=== PATIENT | female | born 1950 | race African-American/Black ===

== ENCOUNTER 2019-03-05 15:34 | Inpatient (IN) | payer OTHER ==
--- NOTE | 2019-03-05 15:45 | PDOC ---
Rapid Medical Evaluation Chief Complaint: Cold Symptoms Time Seen by Provider: 03/05/19 15:42 Medical Evaluation: Allergies Allergy/AdvReac Type Severity Reaction Status Date / Time No Known Drug Allergies Allergy Verified 03/05/19 15:38 Vital Signs Temp Pulse Resp BP Pulse Ox 98.5 F 88 20 193/72 H 76 L 03/05/19 15:38 03/05/19 15:38 03/05/19 15:38 03/05/19 15:38 03/05/19 15:38 03/05/19 15:43 Pt presents to the ED with c/o: sob, cough, congestion x 4 days, Pt on brief exam: decreased BS to left base, no rhonchi/wheeze, crackles Pt ordered for: labs, ekg, cxr, o2 Pt to proceed to the ED Discharge Disposition - Diagnosis Dyspnea - Referrals - Patient Instructions - Post Discharge Activity
[2019-03-05] MEDS ORDERED: ACETAMINOPHEN 1000 MG/100 ML VIAL (NON FORMULARY) IVPB ONE (16:15)
[2019-03-05] MEDS ORDERED: ALBUTEROL SO4 0.083% IH SOL 2.5 MG/3 ML VIAL.NEB. NEB ONE ×4 (16:16→18:29)
--- NOTE | 2019-03-05 16:50 | PDOC ---
History of Present Illness - General Chief Complaint: Cold Symptoms Stated Complaint: FLU Time Seen by Provider: 03/05/19 15:42 History Source: Patient Exam Limitations: No Limitations - History of Present Illness Initial Comments: Pt is a 69 yo F, with PMH of NIDDM, HTN, hyperthyroidism (s/p thyroidectomy, now on levothyroxine), n-stemi, and R breast lumpectomy, who is presenting with complaints of productive cough x4 days. Pt states starting night, she had a "scratchy throat" followed by a cough productive of yellowish sputum. Pt states the cough has worsened, and is now keeping her up during the night. Pt has had subjective fever, with Tmax of 100.0. She states the cough has been associated with substernal chest pain with coughing and shortness of breath, along with generalized body aches and frontal headache after coughing. Pt denies any history of malignancy, estrogen use, recent surgery or travel. Pt denies any vision changes, syncope, orthopnea/PND, hemoptysis, palpitations, nausea/vomiting, abdominal pain, urinary symptoms, diarrhea/constipation, or leg swelling. Social: Pt denies any current cigarette, alcohol, or drug use. Pt smoked for 10 pack years, quit 40 years ago. Pt denies any recent travel or sick contacts. Surgical: R breast lumpectomy, thyroidectomy. Family: no relevant history. 03/05/19 17:10 Past History - Travel Traveled outside of the country in the last 30 days: No Close contact w/someone who was outside of country & ill: No - Past Medical History Allergies/Adverse Reactions: Allergies Allergy/AdvReac Type Severity Reaction Status Date / Time No Known Drug Allergies Allergy Verified 03/05/19 15:38 Home Medications: Ambulatory Orders Brinzolamide/Brimonidine Tart [Simbrinza 1%-0.2% Eye Drops] 8 ml OP DAILY Dulaglutide [Trulicity] 1.5 mg SQ DAILY 03/05/19 Hydrochlorothiazide [Hctz -] 12.5 mg PO DAILY 03/05/19 Levothyroxine Sodium [Synthroid] 137 mcg PO DAILY 03/05/19 Lisinopril 10 mg PO DAILY 03/05/19 Nifedipine [Procardia Xl] 30 mg PO DAILY 03/05/19 Sitagliptin Phos/Metformin HCl [Janumet 50-1,000 mg Tablet] 1 each PO DAILY Travoprost [Travatan Z] 5 ml OP DAILY 03/05/19 Anemia: No Asthma: No Cancer: No Cardiac Disorders: No CVA: No COPD: No CHF: No Dementia: No Diabetes: Yes GI Disorders: No Disorders: No HTN: Yes Hypercholesterolemia: No Liver Disease: No Seizures: No Thyroid Disease: No - Surgical History Abdominal Surgery: No Appendectomy: No Cardiac Surgery: No Cholecystectomy: No Lung Surgery: No Neurologic Surgery: No Orthopedic Surgery: Yes (LEFT SHOULDER ARTHROSCOPY) - Immunization History Immunization Up to Date: Yes - Suicide/Smoking/Psychosocial Hx Smoking History: Never smoked Have you smoked in the past 12 months: No If you are a former smoker, when did you quit?: 1989 Alcohol Use: No Drug/Substance Use Hx: No Substance Use Type: Alcohol Hx Substance Use Treatment: No Review of Systems - Review of Systems Able to Perform ROS?: Yes Is the patient limited Venezuelan proficient: No Constitutional: Yes: Chills, Fever (subjective, tmax 100.0), Loss of Appetite, Malaise, Weight Stable. No: Diaphoresis, Night Sweats, Weakness HEENTM: No: Blurred Vision, Recent change in vision, Nose Pain, Nose Congestion , Throat Pain, Throat Swelling, Difficulty Swallowing Respiratory: Yes: Cough, Shortness of Breath, SOB with Exertion, Productive cough. No: Orthopnea, SOB at Rest, Wheezing, Hemoptysis Cardiac (ROS): Yes: Chest Pain (only with coughing, substernal). No: Edema, Irregular Heart Rate, Lightheadedness, Palpitations, Syncope, Chest Tightness ABD/GI: Yes: Poor Appetite, Poor Fluid Intake. No: Constipated, Diarrhea, Nausea, Vomiting, Indigestion, Abdominal cramping : No: Burning, Dysuria, Frequency, Pain, Urgency Musculoskeletal: No: Back Pain, Joint Pain, Muscle Pain, Muscle Weakness Integumentary: No: Rash Neurological: No: Headache, Numbness, Weakness, Dizziness Psychiatric: No: Sleep Pattern Change, Change in Appetite Endocrine: No: Increased Urine, Change in Weight Hematologic/Lymphatic: Yes: Blood Clots (prior nstemi). No: Anemia, Easy Bleeding, Easy Bruising All Other Systems: Reviewed and Negative *Physical Exam - Vital Signs Last Vital Signs Temp Pulse Resp BP Pulse Ox 98.5 F 88 20 193/72 H 76 L 03/05/19 15:38 03/05/19 15:38 03/05/19 15:38 03/05/19 15:38 03/05/19 15:38 - Physical Exam Comments: BP 193/72, HR 88, 76% on RA on presentation in E, (100% on 2L NC on exam), pt afebrile. Pt appears ill, but in NAD. Obese body habitus. Pt alert and oriented x3. program rep generally intact, muscular strength and sensation intact. No midline spinal tenderness, step-offs, or crepitus. Head normocephalic, atraumatic. Eyes PERRLA, EOMI. Oropharynx without erythema or exudates, no LAD b/l. No nasal congestion, hearing intact. Clear heart sounds, S1/S2, no JVD, b/l pedal edema, or heart murmur. Diminished breath sounds b/l anterior and posterior, audible end-expiratory wheeze. No intercostal retractions, no acute respiratory distress on exam on 2L NC. No abdominal or CVA tenderness to palpation, no rebound, no guarding. Abdomen soft, protuberant, and with normoactive bowel sounds. Skin without jaundice or rash. 03/05/19 16:44 Vital Signs - Vital Signs #1 Blood Pressure: 157/75 MAP: 102 BP Location: Right Arm Blood Pressure Position: Sitting Pulse Rate: 88 Respiratory Rate: 14 (98% 2 L NC) ED Treatment Course - LABORATORY CBC & Chemistry Diagram: 03/05/19 16:37 03/05/19 16:37 Medical Decision Making - Medical Decision Making Pt was seen at bedside, also will be seen by attending Dr. Rizzo. Pt presenting with complaints of productive cough x4 days. Pt states starting night, she had a "scratchy throat" followed by a cough productive of yellowish sputum. Pt states the cough has worsened, and is now keeping her up during the night. Pt has had subjective fever, with Tmax of 100.0. She states the cough has been associated with substernal chest pain with coughing and shortness of breath, along with generalized body aches and frontal headache after coughing. Pt denies any history of malignancy, estrogen use, recent surgery or travel. Pt denies any vision changes, syncope, orthopnea/PND, hemoptysis, palpitations, nausea/vomiting, abdominal pain, urinary symptoms, diarrhea/constipation, or leg swelling. Considering acute pulmonary infection (pneumonia vs viral URI vs influenza) vs ACS vs HF Ordered work-up including CBC, CMP, cardiac profile, BNP, ECG, chest x-ray, coags. Will obtain troponin x2, as pt has new SOB and chest pain with the cough , considering n-stemi history, should obtain multiple troponin if pt is able to discharge to home. Provided 1 g ofirmev and duoneb nebulizer for improvement of dyspnea. Will continue to reassess pt and monitor for symptomatic improvement. ECG: NSR, intervals WNL. No TWIs or significant ST segment changes. No significant changes from prior ECG. 03/05/19 16:50 CBC WNL for pt (H/H 15/48, pt baseline) Influenza negative INR 1.1 Pt now wheezing after nebulizer treatments. Providing 10 mg IV decadron. Pending CMP results. Second troponin to be drawn at 7:30 pm. 03/05/19 17:52 Initial CMP generally WNL, Trop .02, BNP 469. Pending second troponin and reassessment. Pt signed out to night team (Dr. Bowling). 03/05/19 18:49 *DC/Admit/Observation/Transfer Diagnosis at time of Disposition: Productive cough Dyspnea Qualifiers: Dyspnea type: unspecified Qualified Code(s): R06.00 - Dyspnea, unspecified - Discharge Dispostion Condition at time of disposition: Stable - Referrals Referrals: Angy Cullen MD [Primary Care Provider] - - Patient Instructions - Post Discharge Activity
[2019-03-05] MEDS ORDERED: ACETAMINOPHEN INJECTION 100 ML IVPB ONE (16:51)
[2019-03-05 16:57] LABS: EOS % 1.9 % (0-4.5); HEMOGLOBIN 15.7 GM/dL (10.7-15.3); LYMPH % 23.6 % (8-40); MCH 30.8 pg (25.7-33.7); MCHC 32.7 g/dl (32.0-36.0); MEAN CELL VOLUME 94.2 fl (80-96); MEAN PLT VOLUME 9.6 fl (7.5-11.1); MONO % 14.6 % (3.8-10.2); NEUT % 58.9 % (42.8-82.8); PLATELET COUNT 162 K/MM3 (134-434); RBC 5.09 M/mm3 (3.60-5.2); RDW 14.8 % (11.6-15.6); WHITE BLOOD COUNT 5.1 K/mm3 (4.0-10.0)
[2019-03-05 17:10] LABS: INR 1.1 (0.83-1.09)
[2019-03-05] MEDS ORDERED: DEXAMETHASONE SOD PHOSPHATE 10 MG/1 ML VIAL IVPUSH ONE (17:43)
[2019-03-05] MEDS ORDERED: DEXAMETHASONE SOD PHOSPHATE 10 MG/1 ML VIAL ONE (17:51)
[2019-03-05 18:09] LABS: ALBUMIN 3.6 g/dl (3.4-5.0); ALK PHOS 94 U/L (45-117); ANION GAP 6 MMOL/L (8-16); BILIRUBIN,TOTAL 0.4 mg/dL (0.2-1); BLOOD UREA NITROGEN 19 mg/dL (7-18); CALCIUM 9.2 mg/dL (8.5-10.1); CHLORIDE 101 mmol/L (98-107); CO2 34 mmol/L (21-32); CREATININE 1.1 mg/dL (0.55-1.3); GLUCOSE,RANDOM 131 mg/dL (74-106); MAGNESIUM 1.5 mg/dL (1.8-2.4); N-TERMINAL BNP 469.8 pg/ml (5-125); POTASSIUM 4.4 mmol/L (3.5-5.1); SGOT/AST 24 U/L (15-37); SGPT/ALT 18 U/L (13-61); SODIUM 141 mmol/L (136-145); TOT PROT 7.6 g/dl (6.4-8.2)
[2019-03-05] MEDS ORDERED: MAGNESIUM SULF 50% (8.12 MEQ/2 ML-1 GM VIAL) IVPB ONE (18:27)
[2019-03-05] MEDS ORDERED: MAGNESIUM 1GM/D5W - 1 GM/100 ML IVPB IVPB ONE (18:30)
[2019-03-05] MEDS ORDERED: ALBUTEROL SO4 2.5/IPRATROPIUM 0.5 INH SOL 3 ML VIAL.NEB. NEB ONE ×2 (20:33→20:41)
--- NOTE | 2019-03-05 20:37 | PDOC ---
*Physical Exam - Vital Signs Last Vital Signs Temp Pulse Resp BP Pulse Ox 99.3 F 88 14 157/75 76 L 03/05/19 18:19 03/05/19 18:55 03/05/19 18:55 03/05/19 18:55 03/05/19 15:38 - Physical Exam General Appearance: Yes: Nourished, Appropriately Dressed. No: Apparent Distress HEENT: positive: Normal ENT Inspection, Normal Voice Neck: positive: Trachea midline, Supple Respiratory/Chest: positive: Respiratory Distress, Labored Respiration, Rapid RR , Wheezing (diffusely). negative: Lungs Clear, Normal Breath Sounds, Accessory Muscle Use Cardiovascular: positive: Regular Rhythm, Regular Rate Vascular Pulses: Dorsalis-Pedis (R): 2+, Doralis-Pedis (L): 2+ Gastrointestinal/Abdominal: positive: Normal Bowel Sounds, Soft Musculoskeletal: positive: Normal Inspection. negative: CVA Tenderness Extremity: positive: Normal Capillary Refill, Normal Inspection, Normal Range of Motion Integumentary: positive: Normal Color, Dry, Warm Neurologic: positive: Fully Oriented, Alert, Normal Mood/Affect, Normal Response ED Treatment Course - LABORATORY CBC & Chemistry Diagram: 03/05/19 16:37 03/05/19 16:37 - ADDITIONAL ORDERS Additional order review: Laboratory Results 03/05/19 03/05/19 16:37 16:37 PT with INR 13.00 INR 1.10 H Sodium 141 Potassium 4.4 Chloride 101 Carbon Dioxide 34 H Anion Gap 6 L BUN 19 H Creatinine 1.1 Creat Clearance w eGFR 48.96 Random Glucose 131 H Calcium 9.2 Magnesium 1.5 L Total Bilirubin 0.4 AST 24 ALT 18 Alkaline Phosphatase 94 Creatine Kinase 284 H Creatine Kinase Index 0.5 CK-MB (CK-2) 1.5 Troponin I 0.02 B-Natriuretic Peptide 469.8 H Total Protein 7.6 Albumin 3.6 03/05/19 16:37 RBC 5.09 MCV 94.2 MCHC 32.7 RDW 14.8 MPV 9.6 Neutrophils % 58.9 Lymphocytes % 23.6 Monocytes % 14.6 H D Eosinophils % 1.9 Basophils % 1.0 - Medications Given in the ED: ED Medications Discontinued Medications Generic Name Dose Route Start Last Admin Trade Name Freq PRN Reason Stop Dose Admin Acetaminophen 1,000 mg 03/05/19 16:15 03/05/19 16:59 Ofirmev Injection - IVPB 03/05/19 16:16 1,000 mg ONCE ONE Administration Albuterol Sulfate 3 amp 03/05/19 16:16 03/05/19 17:00 Ventolin 0.083% Nebulizer Soln - NEB 03/05/19 16:17 3 amp ONCE ONE Administration Albuterol Sulfate 2 amp 03/05/19 18:28 03/05/19 18:35 Ventolin 0.083% Nebulizer Soln - NEB 03/05/19 18:29 2 amp ONCE ONE Administration Dexamethasone Sodium Phosphate 10 mg 03/05/19 17:43 03/05/19 18:00 Decadron Injection - IVPUSH 03/05/19 17:44 10 mg ONCE ONE Administration Magnesium Sulfate 1 gm 03/05/19 18:27 03/05/19 18:34 Magnesium Sulfate IVPB 03/05/19 18:28 1 gm ONCE ONE Administration Medical Decision Making - Medical Decision Making Patient signed out to me pending breathing treatments, a 2nd troponin, and a re- assessment. When i evaluated the patient off of oxygen she was satting at 85% on RA and had significant wheezing diffusely in all lung watson on inspiration and expiration. She endorses a significant amount of trouble breathing and requested to be placed back on oxygen. I have ordered 3 duonebs and plan to admit the patient to the hospital for observation and further observation 2nd trop negative will admit to med/surg *DC/Admit/Observation/Transfer Diagnosis at time of Disposition: Productive cough, Hypoxia, Wheezing, Reactive airway disease, Obesity, Obstructive lung disease Dyspnea Qualifiers: Dyspnea type: unspecified Qualified Code(s): R06.00 - Dyspnea, unspecified - Discharge Dispostion Condition at time of disposition: Stable Decision to Admit order: Yes - Referrals Referrals: Angy Cullen MD [Primary Care Provider] - - Patient Instructions - Post Discharge Activity
[2019-03-05] MEDS ORDERED: SENNOSIDES 8.6MG TABLET (FP) PO PRN (21:43)
[2019-03-05] MEDS ORDERED: DOCUSATE SODIUM 100 MG CAPSULE (FP) PO PRN (21:43)
[2019-03-05] MEDS ORDERED: ALBUTEROL SO4 0.083% IH SOL 2.5 MG/3 ML VIAL.NEB. NEB PRN (21:46)
[2019-03-05] MEDS: PATIENT'S OWN MEDICATION (NON-FORMULARY) (Brinzolamide/Brimonidine Tart [Simbrinza 1%-0.2% OP SCH (21:47)
[2019-03-05] MEDS ORDERED: INSULIN (LEVEMIR) 100 UNITS/ML UNITS SQ SCH (22:00)
--- NOTE | 2019-03-05 22:35 | PDOC ---
Documentation entered by Lorena Torrez SCRIBE, acting as scribe for Carolina Rizzo MD. Carolina Rizzo MD: This documentation has been prepared by the Shan benavidez Daisy, SCRIBE, under my direction and personally reviewed by me in its entirety. I confirm that the documentation accurately reflects all work, treatment, procedures, and medical decision making performed by me. Attending Attestation - Resident Resident Name: SreekanthReba - ED Attending Attestation I have performed the following: I have examined & evaluated the patient, The case was reviewed & discussed with the resident, I agree w/resident's findings & plan - HPI HPI: 03/05/19 16:06 The patient is a 69 YOF with a PMH of HTN and DM who presents to the ER with nasal congestion, hoarse voice, and increasing shortness of breath for the past 5 days. Denies any history of asthma. Denies fever, chills, cp, N/V/D/C, urinary symptoms, dizziness, or headache. Allergies: NKDA Social Hx: Denies toxic habits. Surgeries: None reported. - Physicial Exam PE: 03/05/19 16:08 ADULT EXAM GENERAL: Awake, alert, and fully oriented, in no acute distress (+) obese. HEAD: No signs of trauma EYES: PERRLA, EOMI, sclera anicteric, conjunctiva clear ENT: Auricles normal inspection, hearing grossly normal, nares patent, oropharynx clear without exudates. Moist mucosa. (+) persistent cough NECK: Normal ROM, supple, no lymphadenopathy, JVD, or masses LUNGS: (+) BL diminished breath sounds. No wheezes, and no crackles HEART: Regular rate and rhythm, normal S1 and S2, no murmurs, rubs or gallops ABDOMEN: (+) protuberant abdomen. Soft, nontender, normoactive bowel sounds. No guarding, no rebound. No masses EXTREMITIES: (+) pedal edema. Normal range of motion. No clubbing or cyanosis. No cords, erythema, or tenderness NEUROLOGICAL: No focal deficits SKIN: Warm, Dry, normal turgor, no rashes or lesions noted. - Critical Care Time Total Critical Care Time: 40 Critical Care Statement: The care of this patient involved high complexity decision making to prevent further life threatening deterioration of the patient 's condition and/or to evaluate & treat vital organ system(s) failure or risk of failure. - Medical Decision Making 03/05/19 16:22 69-year-old female presents with increasing shortness of breath. Past medical history significant for myocardial infarction in August 2015, bilateral shoulder surgery, COPD, tracheal stenosis. Social history former tobacco user, quit in 198903/05/19 16:28 Plan bronchodilator treatments, steroids, reassessment, chest x-ray, EKG, cardiac enzymes 03/05/19 20:36 Patient initially presented with a pulse ox in the mid 70s but responded to supplemental oxygen. After receiving steroids and multiple bronchodilator treatments. She remained hypoxic and required supplemental oxygen. Patient still has some scattered wheezing and will be admitted to inpatient [facility] Impression reactive airway disease, dyspnea, diabetes, hypertension
[2019-03-05] MEDS ORDERED: INSULIN (NOVOLOG) ASPART 100 UNITS/ML 10ML VIAL ONE (22:41)
[2019-03-05] MEDS ORDERED: INSULIN (LEVEMIR) 100 UNITS/ML UNITS SQ ONE (22:41)
[2019-03-05] MEDS: INSULIN SLIDING SCALE (NOVOLOG) 1 VIAL SQ SCH (22:55)
--- NOTE | 2019-03-05 23:37 | HP ---
Admitting History and Physical - Primary Care Physician PCP: Angy Cullen - Admission Chief Complaint: cough and wheezing History of Present Illness: 69 year old F w/ h/o DMII, HTN, hypothyroidism, CAD, ? COPD and R breast cancer s/p lumpectomy presents to ED for evaluation due to chest tightness and wheezing. Patient endorses sore throat which started 5days ago, progressed to productive cough, low grade temp, nasal congestion, body aches and wheezing. Her symptoms was not relieved with OTC meds and she denies recent travel or sick contacts. Ms. Boyer denies nausea/vomiting/diarrhea/dizziness, chest pain, but endorses decreased appetite and interrupted sleep due to persistent cough. Due to feeling unwell on 03/06, she decided to proceed to ED. Vitals in ED: BP 193/72, T 98.5, RR 20, HR 88, O2 sat 76% EKG: non-ischemic CBC WNL (H/H 15/48) Influenza A/B negative INR 1.1 10 mg IV decadron and nebs x 3 administered. Pt placed on 3L nasal cannula which O2 sat increasing to 96% Pt placed in observation overnight due to mild hypoxia. History Source: Patient Limitations to Obtaining History: No Limitations - Past Medical History Cardiovascular: Yes: HTN Pulmonary: Yes: COPD Reproductive: Yes: Postmenopausal ...: 2 ...Para: 2 Endocrine: Yes: Diabetes Mellitus, Other (Enlarged thyroid ) Additional Past Medical History: Obesity hypothyroidism - Past Surgical History Additional Past Surgical History: right breast lumpectomy complete thyroidectomy 2015 right cataract extraction - Smoking History Smoking history: Never smoked Have you smoked in the past 12 months: No Aproximately how many cigarettes per day: 10 (1/2 PPD x 10yrs) If you are a former smoker, when did you quit?: 1989 - Alcohol/Substance Use Hx Alcohol Use: No History of Substance Use: reports: None - Social History Usual Living Arrangement: Yes: Alone ADL: Independent Occupation: Retired Nurse History of Recent Travel: No Home Medications - Allergies Allergies/Adverse Reactions: Allergies Allergy/AdvReac Type Severity Reaction Status Date / Time No Known Drug Allergies Allergy Verified 03/05/19 15:38 - Home Medications Home Medications: Ambulatory Orders Brinzolamide/Brimonidine Tart [Simbrinza 1%-0.2% Eye Drops] 8 ml OP DAILY Dulaglutide [Trulicity] 1.5 mg SQ WEEKLY 03/05/19 Hydrochlorothiazide [Hctz -] 12.5 mg PO DAILY 03/05/19 Levothyroxine Sodium [Synthroid] 137 mcg PO DAILY 03/05/19 Lisinopril 10 mg PO DAILY 03/05/19 Nifedipine [Procardia Xl] 30 mg PO DAILY 03/05/19 Sitagliptin Phos/Metformin HCl [Janumet 50-1,000 mg Tablet] 1 each PO DAILY Travoprost [Travatan Z] 5 ml OP DAILY 03/05/19 Family Disease History - Family Disease History Family Disease History: Other: Father ( (80) PPM placement), Mother ( (52) HTN, of renal failure), Brother (alive (58) DMII) Review of Systems - Review of Systems Constitutional: reports: Lethargy, Loss of Appetite, Weakness Eyes: reports: No Symptoms HENT: reports: Other (sore throat) Neck: reports: No Symptoms Cardiovascular: reports: Shortness of Breath Respiratory: reports: Cough, Wheezing Genitourinary: reports: No Symptoms Breasts: reports: No Symptoms Reported Musculoskeletal: reports: Muscle Weakness Integumentary: reports: No Symptoms Neurological: reports: No Symptoms Endocrine: reports: No Symptoms Hematology/Lymphatic: reports: No Symptoms Psychiatric: reports: No Symptoms Physical Examination Vital Signs: Vital Signs Temperature 99.3 F 03/05/19 18:19 Pulse Rate 88 03/05/19 18:55 Respiratory Rate 14 03/05/19 18:55 Blood Pressure 157/75 03/05/19 18:55 O2 Sat by Pulse Oximetry (%) 76 L 03/05/19 15:38 Constitutional: Yes: No Distress, Calm, Obese Eyes: Yes: Conjunctiva Clear, PERRL HENT: Yes: Atraumatic, Normocephalic Neck: Yes: Supple, Trachea Midline Cardiovascular: Yes: Regular Rate and Rhythm, S1, S2 Respiratory: Yes: Regular, On Nasal O2, Wheezes (expiratory) Gastrointestinal: Yes: Normal Bowel Sounds, Soft, Abdomen, Obese ...Rectal Exam: Yes: Deferred Musculoskeletal: Yes: WNL Extremities: Yes: WNL Edema: No Peripheral Pulses WNL: Yes Peripheral Pulses: Left Radial: 2+, Right Radial: 2+ Integumentary: Yes: WNL Neurological: Yes: Alert, Oriented ...Motor Strength: WNL Psychiatric: Yes: Alert, Oriented Labs: CBC, BMP 03/05/19 16:37 03/05/19 16:37 Imaging - Results Chest X-ray: Pending (CXR 03/05/2019) Problem List - Problems (1) Hypothyroidism Assessment/Plan: continue synthroid 137mcg daily Code(s): E03.9 - HYPOTHYROIDISM, UNSPECIFIED (2) Reactive airway disease Assessment/Plan: Prednisone 40mg BID, d/c home on taper if stable tomorrow duonebs Q6hrs Albuterol PRN O2 3L NC Code(s): J45.909 - UNSPECIFIED ASTHMA, UNCOMPLICATED (3) COPD (chronic obstructive pulmonary disease) with emphysema Assessment/Plan: Pt should f/u with Pulm output for PFTs Code(s): J43.9 - EMPHYSEMA, UNSPECIFIED (4) Diabetes 1.5, managed as type 2 Assessment/Plan: hold trulicity and Janumet Insulin SS Levemir 10units SC hs Fingerstick ACHS Code(s): E13.9 - OTHER SPECIFIED DIABETES MELLITUS WITHOUT COMPLICATIONS (5) Cataract Assessment/Plan: continue simbrinza and Xalatan Code(s): H26.9 - UNSPECIFIED CATARACT (6) HTN (hypertension) Assessment/Plan: HCTZ 12.5mg daily Procardia 30mg daily Lisinopril 10mg daily cardiac diet Code(s): I10 - ESSENTIAL (PRIMARY) HYPERTENSION (7) Prophylactic measure Assessment/Plan: Heparin SC TID bowel regimen with senna and colace PRN tylenol PPI daily OOB to chair Ambulate Code(s): Z29.9 - ENCOUNTER FOR PROPHYLACTIC MEASURES, UNSPECIFIED Assessment/Plan DISPO: home tomorrow if stable Code Status: Full Visit type - Emergency Visit Emergency Visit: Yes ED Registration Date: 03/05/19 Care time: The patient presented to the Emergency Department on the above date and was hospitalized for further evaluation of their emergent condition. - New Patient This patient is new to me today: Yes Date on this admission: 03/06/19 - Critical Care Critical Care patient: No
[2019-03-05 23:46] LABS: ARTERIAL BLD GAS O2 SATURATION 96.3 % (95-98); ARTERIAL BLOOD GAS BASE EXCESS 0.8 meq/l (-2-2); ARTERIAL BLOOD GAS PCO2 54.4 mmHg (35-45); ARTERIAL BLOOD GAS PO2 89.5 mmHg (80-105); ARTERIAL BLOOD GAS pH 7.32 (7.35-7.45)
[2019-03-05 23:47] LABS: ALLENS TEST POSITIVE
[2019-03-05 23:49] LABS: CARBOXYHEMOGLOBIN 0.9 % (0-2)
[2019-03-06] MEDS ORDERED: HEPARIN NA (PORCINE) 5,000 UNITS/ML 1ML VIAL ONE (04:00)
[2019-03-06] MEDS: HEPARIN NA (PORCINE) 5,000 UNITS/ML 1ML VIAL SQ SCH ×4 (04:06→21:27)
[2019-03-06] MEDS ORDERED: guaiFENesin/D-METHORPHAN HB 10 ML UNIT-DOSE CUPS PO ONE ×2 (04:21→06:44)
[2019-03-06] MEDS ORDERED: predniSONE 20 MG TABLET (UD) ONE (05:58)
[2019-03-06] MEDS ORDERED: LEVOTHYROXINE NA 125 MCG TABLET (FP) PO ONE (06:00)
[2019-03-06] MEDS ORDERED: predniSONE 20 MG TABLET (UD) PO SCH (06:00)
[2019-03-06] MEDS: predniSONE 20 MG TABLET (UD) PO SCH ×2 (06:41→10:00)
[2019-03-06 06:52] LABS: HEMATOCRIT 43.7 % (32.4-45.2); HEMOGLOBIN 14.2 GM/dL (10.7-15.3); MCH 30.3 pg (25.7-33.7); MCHC 32.5 g/dl (32.0-36.0); MEAN CELL VOLUME 93.2 fl (80-96); MEAN PLT VOLUME 9.2 fl (7.5-11.1); PLATELET COUNT 167 K/MM3 (134-434); RBC 4.69 M/mm3 (3.60-5.2); RDW 14.6 % (11.6-15.6); WHITE BLOOD COUNT 4.4 K/mm3 (4.0-10.0)
[2019-03-06 07:21] LABS: ANION GAP 8 MMOL/L (8-16); BLOOD UREA NITROGEN 26 mg/dL (7-18); CHLORIDE 98 mmol/L (98-107); CO2 32 mmol/L (21-32); CREATININE 1.2 mg/dL (0.55-1.3); GLUCOSE,RANDOM 144 mg/dL (74-106); PHOSPHOROUS 3.4 mg/dL (2.5-4.9); POTASSIUM 3.8 mmol/L (3.5-5.1); SODIUM 138 mmol/L (136-145)
[2019-03-06] MEDS: LEVOTHYROXINE 112 MCG, LEVOTHYROXINE 25 MCG PO SCH (09:28)
[2019-03-06] MEDS: ALBUTEROL SO4 2.5/IPRATROPIUM 0.5 INH SOL 3 ML VIAL.NEB. NEB SCH ×4 (10:00→20:00)
[2019-03-06] MEDS ORDERED: ALBUTEROL SO4 2.5/IPRATROPIUM 0.5 INH SOL 3 ML VIAL.NEB. NEB ONE (10:27)
[2019-03-06] MEDS: INSULIN SLIDING SCALE (NOVOLOG) 1 VIAL SQ SCH ×4 (10:35→21:33)
[2019-03-06] MEDS: NIFEdipine E.R. 30 MG TABLET (FP) PO SCH (10:36)
[2019-03-06] MEDS: HYDROCHLOROTHIAZIDE 12.5 MG CAPSULE (FP) PO SCH (10:36)
[2019-03-06] MEDS: PANTOPRAZOLE 40 MG TABLET (FP) PO SCH (10:36)
[2019-03-06] MEDS: LISINOPRIL 10 MG TABLET (FP) PO SCH (10:36)
[2019-03-06] MEDS: ACETAMINOPHEN 325 MG TABLET (FP) PO PRN (10:37)
--- NOTE | 2019-03-06 11:37 | PN ---
Progress Note (short form) - Note Progress Note: events noted pt examined in ER off O2-- O2 sat decreased to 87% feeling slightly better no dizziness coughing+ Vital Signs - 24 hr 03/05/19 03/05/19 03/05/19 15:38 18:19 18:55 Temperature 98.5 F 99.3 F Pulse Rate 88 Pulse Rate [#1] 88 Pulse Rate [ 88 Left] Respiratory 20 24 H Rate Respiratory 14 Rate [#1] Blood Pressure 193/72 H Blood Pressure 157/75 [#1] Blood Pressure 159/68 [Left Arm] O2 Sat by Pulse 76 L Oximetry (%) 03/05/19 03/05/19 03/06/19 21:50 21:55 07:48 Temperature 98.4 F Pulse Rate 96 H Pulse Rate [#1] Pulse Rate [ 96 H 87 Left] Respiratory 20 20 Rate Respiratory Rate [#1] Blood Pressure Blood Pressure [#1] Blood Pressure 136/82 160/78 [Left Arm] O2 Sat by Pulse 100 100 98 Oximetry (%) 03/06/19 11:07 Temperature 98.5 F Pulse Rate Pulse Rate [#1] Pulse Rate [ 86 Left] Respiratory Rate Respiratory Rate [#1] Blood Pressure Blood Pressure [#1] Blood Pressure 157/69 [Left Arm] O2 Sat by Pulse 92 L Oximetry (%) Current Medications Generic Name Dose Route Start Last Admin Trade Name Freq PRN Reason Stop Dose Admin Acetaminophen 650 mg 03/05/19 21:48 03/06/19 10:37 Tylenol - PO 650 mg Q6H PRN Administration FEVER Albuterol Sulfate 1 amp 03/05/19 21:46 Ventolin 0.083% Nebulizer Soln - NEB Q6H PRN SHORT OF BREATH/WHEEZING Albuterol/Ipratropium 1 amp 03/06/19 08:00 03/06/19 10:00 Duoneb - NEB 1 amp RQID MOR Administration Docusate Sodium 100 mg 03/05/19 21:43 Colace - PO Q8H PRN CONSTIPATION Heparin Sodium (Porcine) 5,000 unit 03/06/19 02:00 03/06/19 06:42 Heparin - SQ Not Given TID MOR Hydrochlorothiazide 12.5 mg 03/06/19 10:00 03/06/19 10:36 Hctz - PO 12.5 mg DAILY MOR Administration Insulin Aspart 1 vial 03/06/19 11:37 Novolog Vial Sliding Scale - SQ ACHS [facility] Protocol Latanoprost 1 drop 03/06/19 22:00 Xalatan 0.005% Eye Drops - OU HS MOR Levothyroxine Sodium 112 mcg/ 137 mcg 03/06/19 07:00 03/06/19 09:28 Levothyroxine Sodium 25 mcg PO 137 mcg DAILY@0700 MOR Administration Lisinopril 10 mg 03/06/19 10:00 03/06/19 10:36 Prinivil PO 10 mg DAILY MOR Administration Methylprednisolone Sodium Succinate 40 mg 03/06/19 11:45 Solu-Medrol - IVPUSH Q8H-IV MOR Nifedipine 30 mg 03/06/19 10:00 03/06/19 10:36 Procardia Xl - PO 30 mg DAILY MOR Administration Non-Formulary Medication 8 ml 03/05/19 21:45 03/05/19 21:47 Brinzolamide/Brimonidine Tart [Simbrinza 1%-0.2% Eye Drops] OP Not Given DAILY [facility] Non-Formulary Medication 1 each 03/06/19 11:45 Sitagliptin Phos/Metformin Hcl [Janumet 50-1,000 Mg Tablet] PO DAILY MOR Pantoprazole Sodium 40 mg 03/06/19 10:00 03/06/19 10:36 Protonix - PO 40 mg DAILY MOR Administration Senna 2 tab 03/05/19 21:43 Senna - PO HS PRN CONSTIPATION Laboratory Results - last 24 hr 03/05/19 03/05/19 03/05/19 16:37 16:37 16:37 WBC 5.1 RBC 5.09 Hgb 15.7 H Hct 48.0 H MCV 94.2 MCH 30.8 MCHC 32.7 RDW 14.8 Plt Count 162 MPV 9.6 Absolute Neuts (auto) 3.0 Neutrophils % 58.9 Lymphocytes % 23.6 Monocytes % 14.6 H D Eosinophils % 1.9 Basophils % 1.0 Nucleated RBC % 0 PT with INR 13.00 INR 1.10 H Anticoagulation Therapy Puncture Site ABG pH ABG pCO2 at Pt Temp ABG pO2 at Pt Temp ABG HCO3 ABG O2 Sat (Measured) ABG O2 Content ABG Base Excess Benjamin Test Carboxyhemoglobin Methemoglobin O2 Delivery Device Oxygen Flow Rate Vent Mode Vent Rate Mechanical Rate Pressure Support Vent Sodium Potassium Chloride Carbon Dioxide Anion Gap BUN Creatinine Creat Clearance w eGFR POC Glucometer Random Glucose Calcium Phosphorus Magnesium Total Bilirubin AST ALT Alkaline Phosphatase Creatine Kinase Creatine Kinase Index CK-MB (CK-2) Troponin I B-Natriuretic Peptide Total Protein Albumin TSH Influenza A (Rapid) Negative Influenza B (Rapid) Negative 03/05/19 03/05/19 03/05/19 16:37 19:56 20:30 WBC RBC Hgb Hct MCV MCH MCHC RDW Plt Count MPV Absolute Neuts (auto) Neutrophils % Lymphocytes % Monocytes % Eosinophils % Basophils % Nucleated RBC % PT with INR INR Anticoagulation Therapy Puncture Site ABG pH ABG pCO2 at Pt Temp ABG pO2 at Pt Temp ABG HCO3 ABG O2 Sat (Measured) ABG O2 Content ABG Base Excess Benjamin Test Carboxyhemoglobin Methemoglobin O2 Delivery Device Oxygen Flow Rate Vent Mode Vent Rate Mechanical Rate Pressure Support Vent Sodium 141 Potassium 4.4 Chloride 101 Carbon Dioxide 34 H Anion Gap 6 L BUN 19 H Creatinine 1.1 Creat Clearance w eGFR 48.96 POC Glucometer Random Glucose 131 H Calcium 9.2 Phosphorus Magnesium 1.5 L Total Bilirubin 0.4 AST 24 ALT 18 Alkaline Phosphatase 94 Creatine Kinase 284 H Creatine Kinase Index 0.5 CK-MB (CK-2) 1.5 Troponin I 0.02 < 0.02 < 0.02 B-Natriuretic Peptide 469.8 H Total Protein 7.6 Albumin 3.6 TSH Influenza A (Rapid) Influenza B (Rapid) 03/05/19 03/05/19 03/05/19 21:52 23:30 23:30 WBC RBC Hgb Hct MCV MCH MCHC RDW Plt Count MPV Absolute Neuts (auto) Neutrophils % Lymphocytes % Monocytes % Eosinophils % Basophils % Nucleated RBC % PT with INR INR Anticoagulation Therapy No Result Required. Puncture Site Right radial ABG pH 7.32 L ABG pCO2 at Pt Temp 54.4 H ABG pO2 at Pt Temp 89.5 ABG HCO3 27.5 H ABG O2 Sat (Measured) 96.3 ABG O2 Content 19.7 ABG Base Excess 0.8 Benjamin Test Positive Carboxyhemoglobin 0.9 Methemoglobin 0.5 O2 Delivery Device No Result Required. Oxygen Flow Rate Yes Vent Mode No Result Required. Vent Rate No Result Required. Mechanical Rate No Result Required. Pressure Support Vent No Result Required. Sodium Potassium Chloride Carbon Dioxide Anion Gap BUN Creatinine Creat Clearance w eGFR POC Glucometer 271 Random Glucose Calcium Phosphorus Magnesium Total Bilirubin AST ALT Alkaline Phosphatase Creatine Kinase Creatine Kinase Index CK-MB (CK-2) Troponin I B-Natriuretic Peptide Total Protein Albumin TSH Influenza A (Rapid) Influenza B (Rapid) 03/06/19 03/06/19 03/06/19 05:20 05:20 05:30 WBC 4.4 RBC 4.69 Hgb 14.2 Hct 43.7 MCV 93.2 MCH 30.3 MCHC 32.5 RDW 14.6 Plt Count 167 MPV 9.2 Absolute Neuts (auto) Neutrophils % Lymphocytes % Monocytes % Eosinophils % Basophils % Nucleated RBC % PT with INR INR Anticoagulation Therapy Puncture Site ABG pH ABG pCO2 at Pt Temp ABG pO2 at Pt Temp ABG HCO3 ABG O2 Sat (Measured) ABG O2 Content ABG Base Excess Benjamin Test Carboxyhemoglobin Methemoglobin O2 Delivery Device Oxygen Flow Rate Vent Mode Vent Rate Mechanical Rate Pressure Support Vent Sodium 138 Potassium 3.8 Chloride 98 Carbon Dioxide 32 Anion Gap 8 BUN 26 H Creatinine 1.2 Creat Clearance w eGFR 44.29 POC Glucometer Random Glucose 144 H Calcium 9.0 Phosphorus 3.4 Magnesium 2.0 Total Bilirubin AST ALT Alkaline Phosphatase Creatine Kinase 280 H Creatine Kinase Index 0.7 CK-MB (CK-2) 2.1 Troponin I < 0.02 B-Natriuretic Peptide Total Protein Albumin TSH 2.79 Influenza A (Rapid) Influenza B (Rapid) 03/06/19 07:59 WBC RBC Hgb Hct MCV MCH MCHC RDW Plt Count MPV Absolute Neuts (auto) Neutrophils % Lymphocytes % Monocytes % Eosinophils % Basophils % Nucleated RBC % PT with INR INR Anticoagulation Therapy Puncture Site ABG pH ABG pCO2 at Pt Temp ABG pO2 at Pt Temp ABG HCO3 ABG O2 Sat (Measured) ABG O2 Content ABG Base Excess Benjamin Test Carboxyhemoglobin Methemoglobin O2 Delivery Device Oxygen Flow Rate Vent Mode Vent Rate Mechanical Rate Pressure Support Vent Sodium Potassium Chloride Carbon Dioxide Anion Gap BUN Creatinine Creat Clearance w eGFR POC Glucometer 156 Random Glucose Calcium Phosphorus Magnesium Total Bilirubin AST ALT Alkaline Phosphatase Creatine Kinase Creatine Kinase Index CK-MB (CK-2) Troponin I B-Natriuretic Peptide Total Protein Albumin TSH Influenza A (Rapid) Influenza B (Rapid) s1 s2 RRR Lungs B/L ronchi+ Abd- soft, obese, NT no edema PLAN COPD exacerbation ex smoker morbid obesity --dc prednisone and change to IV solumedrol Nebs O2 Pulmonary eval CT chest monitor blood sugars continue with meds Problem List - Problems (1) Hypoxia Code(s): R09.02 - HYPOXEMIA (2) Obstructive lung disease Code(s): J44.9 - CHRONIC OBSTRUCTIVE PULMONARY DISEASE, UNSPECIFIED (3) COPD (chronic obstructive pulmonary disease) with emphysema Code(s): J43.9 - EMPHYSEMA, UNSPECIFIED (4) Diabetes 1.5, managed as type 2 Code(s): E13.9 - OTHER SPECIFIED DIABETES MELLITUS WITHOUT COMPLICATIONS
[2019-03-06] MEDS ORDERED: PATIENT'S OWN MEDICATION (NON-FORMULARY) (Sitagliptin Phos/Metformin Hcl [Janumet 50-1,000 PO SCH (11:45)
[2019-03-06] MEDS ORDERED: methylPREDNISolone NA SUCC 40 MG/1 ML VIAL ONE (13:57)
[2019-03-06] MEDS ORDERED: ACETAMINOPHEN 325 MG TABLET (FP) ONE (13:57)
[2019-03-06] MEDS: methylPREDNISolone NA SUCC 40 MG/1 ML VIAL IVPUSH SCH ×2 (14:03→17:41)
[2019-03-06] MEDS: metFORMIN HCL 500 MG TABLET (FP) PO SCH (14:04)
[2019-03-06] MEDS: sitaGLIPtin PHOSPHATE 50 MG TABLET PO SCH (14:04)
--- NOTE | 2019-03-06 14:28 | EKG ---
Test Reason : Blood Pressure : / mmHG Vent. Rate : 085 BPM Atrial Rate : 085 BPM P-R Int : 184 ms QRS Dur : 068 ms QT Int : 356 ms P-R-T Axes : 049 050 050 degrees QTc Int : 423 ms POOR DATA QUALITY, INTERPRETATION MAY BE ADVERSELY AFFECTED NORMAL SINUS RHYTHM CANNOT RULE OUT INFERIOR INFARCT , AGE UNDETERMINED CANNOT RULE OUT ANTERIOR INFARCT , AGE UNDETERMINED ABNORMAL ECG Confirmed by MD VELIA, BRANDON ([id number]) on 03/06/2019 2:27:58 PM Referred By: Confirmed By:BRANDON GUNN MD
[2019-03-06 15:24] VITALS: BMI 41.8
--- NOTE | 2019-03-06 16:12 | PN ---
Progress Note (short form) - Note Progress Note: PULMONARY CONSULTATION DICTATED 03/06/19 IMP ACUTE HYPOXEMIC/HYPERCAPNEIC RESPIRATORY FAILURE ASTHMATIC BRONCHITIS URI ? COPD HTN DM PLAN IV STEROIDS INHALED BRONCHODILATORS O2 CHEST CT ABX OUTPATIENT PFTS CHECK AMBULATORY O2 SAT PRIOR TO DISCHARGE TO DETERMINE IF PT IS A CANDIDATE FOR HOME O2 DR BOWERS Problem List - Problems (1) Dyspnea Code(s): R06.00 - DYSPNEA, UNSPECIFIED Qualifiers: Dyspnea type: unspecified Qualified Code(s): R06.00 - Dyspnea, unspecified (2) Hypoxia Code(s): R09.02 - HYPOXEMIA (3) Obesity Code(s): E66.9 - OBESITY, UNSPECIFIED (4) Productive cough Code(s): R05 - COUGH (5) Wheezing Code(s): R06.2 - WHEEZING (6) Asthmatic bronchitis Code(s): J45.909 - UNSPECIFIED ASTHMA, UNCOMPLICATED (7) Acute respiratory failure with hypoxia and hypercapnia Code(s): J96.01 - ACUTE RESPIRATORY FAILURE WITH HYPOXIA; J96.02 - ACUTE RESPIRATORY FAILURE WITH HYPERCAPNIA (8) Diabetes Code(s): E11.9 - TYPE 2 DIABETES MELLITUS WITHOUT COMPLICATIONS (9) HTN (hypertension) Code(s): I10 - ESSENTIAL (PRIMARY) HYPERTENSION (10) Hypothyroidism Code(s): E03.9 - HYPOTHYROIDISM, UNSPECIFIED
--- NOTE | 2019-03-06 17:49 | CONS ---
DATE OF CONSULTATION: 03/06/2019 REFERRING PHYSICIAN: Angy Cullen MD HISTORY: The patient is a 69-year-old black female with a past medical history of hypertension, diabetes, remote history of tobacco use quit 40 years ago admitted to [facility] with complaint of increasing shortness of breath, chest congestion, and wheezing. The patient states she was doing well until about a week ago when she started developing nasal congestion and a hoarse voice. Over the past 5 days starting developing increasing dyspnea on exertion, cough, and wheezing. She denied any fevers, chills, nausea, vomiting, or diaphoresis. She states that the cough was productive of yellowish sputum. Denied any hemoptysis. There was no history of respiratory failure in the past or ventilatory support. She denies any history of COPD or asthma. In the ER, she is noted to be hypoxemic with O2 saturations in the 70s but responded well to supplemental O2 as well as inhaled bronchodilator treatment. She remained hypoxic and subsequently transferred up to medical floor for further management. PAST MEDICAL HISTORY: Again includes diabetes and hypertension. SOCIAL HISTORY: Retired RN. History of tobacco use. Quit 40 years ago. CURRENT MEDICATIONS: Include Simbrinza eye drops, methylprednisolone, Tylenol, Prinivil, heparin, albuterol, DuoNeb, Glucophage, Colace, Senna, Procardia, Januvia, NovoLog, Protonix, hydrochlorothiazide, Synthroid. REVIEW OF SYSTEMS: Positive shortness of breath, positive cough, positive wheezing. No fever, no chills, no chest pain, no palpitations, no abdominal pain or lower extremity edema. PHYSICAL EXAMINATION: General: The patient is an obese female well-developed, awake, alert in no acute distress. Vital Signs: She is afebrile. Blood pressure 161/88, respiratory rate 20, O2 saturation 94% on 2 L. HEENT: Normocephalic and atraumatic. Neck: Supple. Heart: Regular with S1, S2. Chest: She has bilateral wheezes. Abdomen: Soft. Bowel sounds are positive. Extremities: No cyanosis or edema. LABORATORIES: Blood gas pH 7.32, PCO2 of 54, PO2 of 89, bicarbonate 27, saturation 96. On unknown quantity of oxygen. WBC 4.4, hemoglobin 14.2, hematocrit 43.7 with a platelet count of 167,000. INR 1.10. Chemistry: BUN 26, creatinine 1.2. Chest x-ray: No acute infiltrates and/or effusions. IMPRESSION: 1. Acute hypoxemic, hypercapnic respiratory failure secondary to: 2. Likely acute asthmatic bronchitis most likely secondary to upper respiratory infection. 3. likely underlying chronic obstructive airway disease. 4. Hypertension. 5. Diabetes. 6. Obesity. PLAN: IV steroids. Inhaled bronchodilators. Supplemental O2. Chest CT. Antibiotics. Outpatient PFTs. EVER BOWERS M.D. [id number] MTDD
[2019-03-06] MEDS: LATANOPROST 0.005% OPHTH SOLN 2.5ML BOTTLE OU SCH (22:11)
[2019-03-07] MEDS: methylPREDNISolone NA SUCC 40 MG/1 ML VIAL IVPUSH SCH ×3 (02:25→17:10)
[2019-03-07] MEDS: HEPARIN NA (PORCINE) 5,000 UNITS/ML 1ML VIAL SQ SCH ×3 (05:23→21:58)
[2019-03-07] MEDS ORDERED: LEVOTHYROXINE NA 25 MCG TABLET (FP) ONE (05:54)
[2019-03-07] MEDS ORDERED: LEVOTHYROXINE NA 112 MCG TABLET (FP) ONE (05:54)
[2019-03-07] MEDS: INSULIN SLIDING SCALE (NOVOLOG) 1 VIAL SQ SCH ×4 (06:15→21:56)
[2019-03-07] MEDS: metFORMIN HCL 500 MG TABLET (FP) PO SCH (06:16)
[2019-03-07] MEDS: sitaGLIPtin PHOSPHATE 50 MG TABLET PO SCH (06:16)
[2019-03-07] MEDS: LEVOTHYROXINE 112 MCG, LEVOTHYROXINE 25 MCG PO SCH (06:16)
[2019-03-07] MEDS: ALBUTEROL SO4 2.5/IPRATROPIUM 0.5 INH SOL 3 ML VIAL.NEB. NEB SCH ×4 (08:21→21:41)
[2019-03-07] MEDS ORDERED: INSULIN (NOVOLOG) ASPART 100 UNITS/ML 10ML VIAL ONE ×2 (09:05→21:53)
[2019-03-07] MEDS: HYDROCHLOROTHIAZIDE 12.5 MG CAPSULE (FP) PO SCH (09:33)
[2019-03-07] MEDS: LISINOPRIL 10 MG TABLET (FP) PO SCH (09:33)
[2019-03-07] MEDS: PANTOPRAZOLE 40 MG TABLET (FP) PO SCH (09:33)
[2019-03-07] MEDS: NIFEdipine E.R. 30 MG TABLET (FP) PO SCH (09:34)
--- NOTE | 2019-03-07 11:23 | PN ---
Progress Note (short form) - Note Progress Note: events noted pt examined wheezing more today no dizziness coughing+ Vital Signs - 24 hr 03/06/19 03/06/19 03/06/19 11:30 11:45 14:21 Temperature Pulse Rate Pulse Rate [ 88 88 Left] Respiratory 20 18 Rate Blood Pressure Blood Pressure 157/69 160/77 [Left Arm] O2 Sat by Pulse 88 L 97 96 Oximetry (%) 03/06/19 03/06/19 03/06/19 15:19 15:29 17:38 Temperature 98.8 F 97.6 F Pulse Rate 84 87 Pulse Rate [ Left] Respiratory 20 20 18 Rate Blood Pressure 161/88 158/89 Blood Pressure [Left Arm] O2 Sat by Pulse 94 L Oximetry (%) 03/06/19 03/07/19 21:00 05:00 Temperature 98.3 F Pulse Rate 76 Pulse Rate [ Left] Respiratory 18 Rate Blood Pressure 127/59 L Blood Pressure [Left Arm] O2 Sat by Pulse 94 L Oximetry (%) Current Medications Generic Name Dose Route Start Last Admin Trade Name Freq PRN Reason Stop Dose Admin Acetaminophen 650 mg 03/05/19 21:48 03/06/19 10:37 Tylenol - PO 650 mg Q6H PRN Administration FEVER Albuterol Sulfate 1 amp 03/05/19 21:46 Ventolin 0.083% Nebulizer Soln - NEB Q6H PRN SHORT OF BREATH/WHEEZING Albuterol/Ipratropium 1 amp 03/06/19 08:00 03/07/19 08:21 Duoneb - NEB 1 amp RQID MOR Administration Docusate Sodium 100 mg 03/05/19 21:43 Colace - PO Q8H PRN CONSTIPATION Heparin Sodium (Porcine) 5,000 unit 03/06/19 02:00 03/07/19 05:23 Heparin - SQ Not Given TID MOR Hydrochlorothiazide 12.5 mg 03/06/19 10:00 03/07/19 09:33 Hctz - PO 12.5 mg DAILY MOR Administration Insulin Aspart 1 vial 03/06/19 11:37 03/07/19 06:15 Novolog Vial Sliding Scale - SQ 2 units ACHS MOR Administration Protocol Latanoprost 1 drop 03/06/19 22:00 03/06/19 22:11 Xalatan 0.005% Eye Drops - OU 1 drop HS MOR Administration Levothyroxine Sodium 112 mcg/ 137 mcg 03/06/19 07:00 03/07/19 06:16 Levothyroxine Sodium 25 mcg PO 137 mcg DAILY@0700 MOR Administration Lisinopril 10 mg 03/06/19 10:00 03/07/19 09:33 Prinivil PO 10 mg DAILY MOR Administration Metformin HCl 1,000 mg 03/06/19 13:00 03/07/19 06:16 Glucophage - PO 1,000 mg ACBK MOR Administration Methylprednisolone Sodium Succinate 40 mg 03/06/19 11:45 03/07/19 09:32 Solu-Medrol - IVPUSH 40 mg Q8H-IV MOR Administration Nifedipine 30 mg 03/06/19 10:00 03/07/19 09:34 Procardia Xl - PO 30 mg DAILY MOR Administration Non-Formulary Medication 8 ml 03/05/19 21:45 03/05/19 21:47 Brinzolamide/Brimonidine Tart [Simbrinza 1%-0.2% Eye Drops] OP Not Given DAILY [facility] Pantoprazole Sodium 40 mg 03/06/19 10:00 03/07/19 09:33 Protonix - PO 40 mg DAILY MOR Administration Senna 2 tab 03/05/19 21:43 Senna - PO HS PRN CONSTIPATION Sitagliptin Phosphate 50 mg 03/06/19 13:00 03/07/19 06:16 Januvia - PO 50 mg DAILY@0700 MOR Administration Laboratory Results - last 24 hr 03/06/19 03/06/19 03/07/19 16:06 21:28 06:14 POC Glucometer 214 187 192 s1 s2 RRR Lungs B/L ronchi+ Abd- soft, obese, NT no edema PLAN COPD exacerbation ex smoker morbid obesity --on IV solumedrol Nebs q6h O2 Pulmonary eval noted CT chest-- results noted-- needs to repeat in 3 months monitor blood sugars continue with meds Problem List - Problems (1) Hypoxia Code(s): R09.02 - HYPOXEMIA (2) Obstructive lung disease Code(s): J44.9 - CHRONIC OBSTRUCTIVE PULMONARY DISEASE, UNSPECIFIED (3) COPD (chronic obstructive pulmonary disease) with emphysema Code(s): J43.9 - EMPHYSEMA, UNSPECIFIED (4) Diabetes 1.5, managed as type 2 Code(s): E13.9 - OTHER SPECIFIED DIABETES MELLITUS WITHOUT COMPLICATIONS
[2019-03-07] MEDS: POLYETHYLENE GLYCOL 3350 119 GM BTL PO SCH (12:07)
--- NOTE | 2019-03-07 12:28 | PN ---
Progress Note, Physician History of Present Illness: pulmonary alert,feeling better,less congested,+ cough - Current Medication List Current Medications: Active Medications Acetaminophen (Tylenol -) 650 mg PO Q6H PRN PRN Reason: FEVER Last Admin: 03/06/19 10:37 Dose: 650 mg Albuterol Sulfate (Ventolin 0.083% Nebulizer Soln -) 1 amp NEB Q6H PRN PRN Reason: SHORT OF BREATH/WHEEZING Albuterol/Ipratropium (Duoneb -) 1 amp NEB RQID [facility] Last Admin: 03/07/19 08:21 Dose: 1 amp Docusate Sodium (Colace -) 100 mg PO Q8H PRN PRN Reason: CONSTIPATION Heparin Sodium (Porcine) (Heparin -) 5,000 unit SQ TID [facility] Last Admin: 03/07/19 05:23 Dose: Not Given Hydrochlorothiazide (Hctz -) 12.5 mg PO DAILY [facility] Last Admin: 03/07/19 09:33 Dose: 12.5 mg Insulin Aspart (Novolog Vial Sliding Scale -) 1 vial SQ ACHS [facility]; Protocol Last Admin: 03/07/19 11:35 Dose: 2 units Latanoprost (Xalatan 0.005% Eye Drops -) 1 drop OU HS [facility] Last Admin: 03/06/19 22:11 Dose: 1 drop Levothyroxine Sodium 112 mcg/ (Levothyroxine Sodium 25 mcg) 137 mcg PO DAILY@ 0700 [facility] Last Admin: 03/07/19 06:16 Dose: 137 mcg Lisinopril (Prinivil) 10 mg PO DAILY [facility] Last Admin: 03/07/19 09:33 Dose: 10 mg Metformin HCl (Glucophage -) 1,000 mg PO ACBK [facility] Last Admin: 03/07/19 06:16 Dose: 1,000 mg Methylprednisolone Sodium Succinate (Solu-Medrol -) 40 mg IVPUSH Q8H-IV [facility] Last Admin: 03/07/19 09:32 Dose: 40 mg Nifedipine (Procardia Xl -) 30 mg PO DAILY [facility] Last Admin: 03/07/19 09:34 Dose: 30 mg Non-Formulary Medication (Brinzolamide/Brimonidine Tart [Simbrinza 1%-0.2% Eye Drops]) 8 ml OP DAILY [facility] Last Admin: 03/05/19 21:47 Dose: Not Given Pantoprazole Sodium (Protonix -) 40 mg PO DAILY [facility] Last Admin: 03/07/19 09:33 Dose: 40 mg Polyethylene Glycol (Miralax (For Daily Use) -) 17 gm PO DAILY [facility] Last Admin: 03/07/19 12:07 Dose: 17 grams Senna (Senna -) 2 tab PO HS PRN PRN Reason: CONSTIPATION Sitagliptin Phosphate (Januvia -) 50 mg PO DAILY@0700 [facility] Last Admin: 03/07/19 06:16 Dose: 50 mg - Objective Vital Signs: Vital Signs Temperature 98.3 F 03/07/19 05:00 Pulse Rate 76 03/07/19 05:00 Respiratory Rate 18 03/07/19 05:00 Blood Pressure 127/59 L 03/07/19 05:00 O2 Sat by Pulse Oximetry (%) 94 L 03/06/19 21:00 Constitutional: Yes: Well Nourished, Calm Eyes: Yes: WNL HENT: Yes: WNL Neck: Yes: WNL Cardiovascular: Yes: Regular Rate and Rhythm, S1, S2 Respiratory: Yes: Wheezes (scattered shaunna wheezes) Gastrointestinal: Yes: Normal Bowel Sounds, Soft Extremities: Yes: WNL Edema: No Labs: CBC, BMP 03/06/19 05:30 03/06/19 05:20 INR, PTT INR 1.10 (0.83-1.09) H 03/05/19 16:37 - ....Imaging Cat Scan: Report Reviewed, Image Reviewed Problem List - Problems (1) Dyspnea Code(s): R06.00 - DYSPNEA, UNSPECIFIED Qualifiers: Dyspnea type: unspecified Qualified Code(s): R06.00 - Dyspnea, unspecified (2) Hypoxia Code(s): R09.02 - HYPOXEMIA (3) Obesity Code(s): E66.9 - OBESITY, UNSPECIFIED (4) Productive cough Code(s): R05 - COUGH (5) Wheezing Code(s): R06.2 - WHEEZING (6) Asthmatic bronchitis Code(s): J45.909 - UNSPECIFIED ASTHMA, UNCOMPLICATED (7) Acute respiratory failure with hypoxia and hypercapnia Code(s): J96.01 - ACUTE RESPIRATORY FAILURE WITH HYPOXIA; J96.02 - ACUTE RESPIRATORY FAILURE WITH HYPERCAPNIA (8) Diabetes Code(s): E11.9 - TYPE 2 DIABETES MELLITUS WITHOUT COMPLICATIONS (9) HTN (hypertension) Code(s): I10 - ESSENTIAL (PRIMARY) HYPERTENSION (10) Hypothyroidism Code(s): E03.9 - HYPOTHYROIDISM, UNSPECIFIED Assessment/Plan IMP ACUTE HYPOXEMIC/HYPERCPNEIC RESPIRATORY FAILURE ASTHMATIC BRONCHITIS URI ? COPD HTN DM GROUND GLASS OPACITY PLAN IV STEROIDS SAME DOSE INHALED BRONCHODILATORS O2 ABX OUTPATIENT PFTS CHECK AMBULATORY O2 SAT PRIOR TO DISCHARGE TO DETERMINE IF PT IS A CANDIDATE FOR HOME O2 F/U CHEST CT 3-[address] BOWERS Problem List - Problems (1) Dyspnea Code(s): R06.00 - DYSPNEA, UNSPECIFIED Qualifiers: Dyspnea type: unspecified Qualified Code(s): R06.00 - Dyspnea, unspecified (2) Hypoxia Code(s): R09.02 - HYPOXEMIA (3) Obesity Code(s): E66.9 - OBESITY, UNSPECIFIED (4) Productive cough Code(s): R05 - COUGH (5) Wheezing Code(s): R06.2 - WHEEZING (6) Asthmatic bronchitis Code(s): J45.909 - UNSPECIFIED ASTHMA, UNCOMPLICATED (7) Acute respiratory failure with hypoxia and hypercapnia Code(s): J96.01 - ACUTE RESPIRATORY FAILURE WITH HYPOXIA; J96.02 - ACUTE RESPIRATORY FAILURE WITH HYPERCAPNIA (8) Diabetes Code(s): E11.9 - TYPE 2 DIABETES MELLITUS WITHOUT COMPLICATIONS (9) HTN (hypertension) Code(s): I10 - ESSENTIAL (PRIMARY) HYPERTENSION (10) Hypothyroidism Code(s): E03.9 - HYPOTHYROIDISM, UNSPECIFIED
[2019-03-07] MEDS ORDERED: PT OWN MED DRAWER 7, Y5N ONE (21:31)
[2019-03-07] MEDS: LATANOPROST 0.005% OPHTH SOLN 2.5ML BOTTLE OU SCH (21:55)
[2019-03-08] MEDS: methylPREDNISolone NA SUCC 40 MG/1 ML VIAL IVPUSH SCH ×3 (01:55→17:50)
[2019-03-08] MEDS ORDERED: LEVOTHYROXINE NA 25 MCG TABLET (FP) ONE (05:00)
[2019-03-08] MEDS ORDERED: LEVOTHYROXINE NA 112 MCG TABLET (FP) ONE (05:00)
[2019-03-08] MEDS: HEPARIN NA (PORCINE) 5,000 UNITS/ML 1ML VIAL SQ SCH ×3 (05:08→21:30)
[2019-03-08] MEDS: LEVOTHYROXINE 112 MCG, LEVOTHYROXINE 25 MCG PO SCH (06:05)
[2019-03-08] MEDS: sitaGLIPtin PHOSPHATE 50 MG TABLET PO SCH (06:07)
[2019-03-08] MEDS: metFORMIN HCL 500 MG TABLET (FP) PO SCH (06:07)
[2019-03-08] MEDS: INSULIN SLIDING SCALE (NOVOLOG) 1 VIAL SQ SCH ×4 (06:12→21:29)
[2019-03-08] MEDS: ALBUTEROL SO4 2.5/IPRATROPIUM 0.5 INH SOL 3 ML VIAL.NEB. NEB SCH ×4 (07:30→20:54)
[2019-03-08] MEDS: LISINOPRIL 10 MG TABLET (FP) PO SCH (10:00)
[2019-03-08] MEDS: HYDROCHLOROTHIAZIDE 12.5 MG CAPSULE (FP) PO SCH (10:00)
[2019-03-08] MEDS: NIFEdipine E.R. 30 MG TABLET (FP) PO SCH (10:00)
[2019-03-08] MEDS: PANTOPRAZOLE 40 MG TABLET (FP) PO SCH (10:00)
[2019-03-08] MEDS: POLYETHYLENE GLYCOL 3350 119 GM BTL PO SCH (10:02)
[2019-03-08] MEDS ORDERED: INSULIN (NOVOLOG) ASPART 100 UNITS/ML 10ML VIAL ONE (11:15)
--- NOTE | 2019-03-08 11:39 | PN ---
Progress Note (short form) - Note Progress Note: events noted pt examined better today no dizziness coughing+ Vital Signs - 24 hr 03/07/19 03/07/19 03/07/19 13:56 18:18 21:00 Temperature 98.2 F 98.3 F Pulse Rate 91 H 86 Respiratory 20 18 20 Rate Blood Pressure 144/75 138/79 O2 Sat by Pulse 92 L Oximetry (%) 03/07/19 03/08/19 03/08/19 22:00 01:04 05:22 Temperature 97.8 F 98.2 F 98.7 F Pulse Rate 88 93 H 84 Respiratory 20 20 20 Rate Blood Pressure 124/74 144/62 150/89 O2 Sat by Pulse Oximetry (%) 03/08/19 03/08/19 09:00 10:00 Temperature 98.2 F Pulse Rate 90 Respiratory 20 20 Rate Blood Pressure 139/77 O2 Sat by Pulse 97 Oximetry (%) Current Medications Generic Name Dose Route Start Last Admin Trade Name Freq PRN Reason Stop Dose Admin Acetaminophen 650 mg 03/05/19 21:48 03/06/19 10:37 Tylenol - PO 650 mg Q6H PRN Administration FEVER Albuterol Sulfate 1 amp 03/05/19 21:46 Ventolin 0.083% Nebulizer Soln - NEB Q6H PRN SHORT OF BREATH/WHEEZING Albuterol/Ipratropium 1 amp 03/06/19 08:00 03/08/19 07:30 Duoneb - NEB 1 amp RQID [facility] Administration Docusate Sodium 100 mg 03/05/19 21:43 Colace - PO Q8H PRN CONSTIPATION Heparin Sodium (Porcine) 5,000 unit 03/06/19 02:00 03/08/19 05:08 Heparin - SQ Not Given TID MOR Hydrochlorothiazide 12.5 mg 03/06/19 10:00 03/08/19 10:00 Hctz - PO 12.5 mg DAILY [facility] Administration Insulin Aspart 1 vial 03/06/19 11:37 03/08/19 11:23 Novolog Vial Sliding Scale - SQ 2 units ACHS [facility] Administration Protocol Latanoprost 1 drop 03/06/19 22:00 03/07/19 21:55 Xalatan 0.005% Eye Drops - OU 1 drop HS [facility] Administration Levothyroxine Sodium 112 mcg/ 137 mcg 03/06/19 07:00 03/08/19 06:05 Levothyroxine Sodium 25 mcg PO 137 mcg DAILY@0700 [facility] Administration Lisinopril 10 mg 03/06/19 10:00 03/08/19 10:00 Prinivil PO 10 mg DAILY [facility] Administration Metformin HCl 1,000 mg 03/06/19 13:00 03/08/19 06:07 Glucophage - PO 1,000 mg ACBK [facility] Administration Methylprednisolone Sodium Succinate 40 mg 03/06/19 11:45 03/08/19 10:00 Solu-Medrol - IVPUSH 40 mg Q8H-IV [facility] Administration Nifedipine 30 mg 03/06/19 10:00 03/08/19 10:00 Procardia Xl - PO 30 mg DAILY [facility] Administration Non-Formulary Medication 8 ml 03/05/19 21:45 03/05/19 21:47 Brinzolamide/Brimonidine Tart [Simbrinza 1%-0.2% Eye Drops] OP Not Given DAILY [facility] Pantoprazole Sodium 40 mg 03/06/19 10:00 03/08/19 10:00 Protonix - PO 40 mg DAILY [facility] Administration Polyethylene Glycol 17 gm 03/07/19 11:45 03/08/19 10:02 Miralax (For Daily Use) - PO 17 grams DAILY [facility] Administration Senna 2 tab 03/05/19 21:43 Senna - PO HS PRN CONSTIPATION Sitagliptin Phosphate 50 mg 03/06/19 13:00 03/08/19 06:07 Januvia - PO 50 mg DAILY@0700 [facility] Administration Laboratory Results - last 24 hr 03/07/19 03/07/19 03/07/19 11:34 16:34 21:49 POC Glucometer 155 221 214 03/08/19 03/08/19 06:11 11:21 POC Glucometer 172 158 s1 s2 RRR Lungs B/L ronchi+ Abd- soft, obese, NT no edema PLAN COPD exacerbation ex smoker morbid obesity --on IV solumedrol Nebs q6h O2 Pulmonary eval noted CT chest-- results noted-- needs to repeat in 3 months monitor blood sugars continue with meds Problem List - Problems (1) Hypoxia Code(s): R09.02 - HYPOXEMIA (2) Obstructive lung disease Code(s): J44.9 - CHRONIC OBSTRUCTIVE PULMONARY DISEASE, UNSPECIFIED (3) COPD (chronic obstructive pulmonary disease) with emphysema Code(s): J43.9 - EMPHYSEMA, UNSPECIFIED (4) Diabetes 1.5, managed as type 2 Code(s): E13.9 - OTHER SPECIFIED DIABETES MELLITUS WITHOUT COMPLICATIONS
--- NOTE | 2019-03-08 15:52 | PN ---
Progress Note, Physician History of Present Illness: pulmonary alert,feeling better,less dyspneic,+ cough - Current Medication List Current Medications: Active Medications Acetaminophen (Tylenol -) 650 mg PO Q6H PRN PRN Reason: FEVER Last Admin: 03/06/19 10:37 Dose: 650 mg Albuterol Sulfate (Ventolin 0.083% Nebulizer Soln -) 1 amp NEB Q6H PRN PRN Reason: SHORT OF BREATH/WHEEZING Albuterol/Ipratropium (Duoneb -) 1 amp NEB RQID [facility] Last Admin: 03/08/19 11:41 Dose: 1 amp Docusate Sodium (Colace -) 100 mg PO Q8H PRN PRN Reason: CONSTIPATION Heparin Sodium (Porcine) (Heparin -) 5,000 unit SQ TID [facility] Last Admin: 03/08/19 14:26 Dose: Not Given Hydrochlorothiazide (Hctz -) 12.5 mg PO DAILY [facility] Last Admin: 03/08/19 10:00 Dose: 12.5 mg Insulin Aspart (Novolog Vial Sliding Scale -) 1 vial SQ ACHS [facility]; Protocol Last Admin: 03/08/19 11:23 Dose: 2 units Latanoprost (Xalatan 0.005% Eye Drops -) 1 drop OU HS [facility] Last Admin: 03/07/19 21:55 Dose: 1 drop Levothyroxine Sodium 112 mcg/ (Levothyroxine Sodium 25 mcg) 137 mcg PO DAILY@ 0700 [facility] Last Admin: 03/08/19 06:05 Dose: 137 mcg Lisinopril (Prinivil) 10 mg PO DAILY [facility] Last Admin: 03/08/19 10:00 Dose: 10 mg Metformin HCl (Glucophage -) 1,000 mg PO ACBK [facility] Last Admin: 03/08/19 06:07 Dose: 1,000 mg Methylprednisolone Sodium Succinate (Solu-Medrol -) 40 mg IVPUSH Q8H-IV [facility] Last Admin: 03/08/19 10:00 Dose: 40 mg Nifedipine (Procardia Xl -) 30 mg PO DAILY [facility] Last Admin: 03/08/19 10:00 Dose: 30 mg Non-Formulary Medication (Brinzolamide/Brimonidine Tart [Simbrinza 1%-0.2% Eye Drops]) 8 ml OP DAILY [facility] Last Admin: 03/05/19 21:47 Dose: Not Given Pantoprazole Sodium (Protonix -) 40 mg PO DAILY [facility] Last Admin: 03/08/19 10:00 Dose: 40 mg Polyethylene Glycol (Miralax (For Daily Use) -) 17 gm PO DAILY [facility] Last Admin: 03/08/19 10:02 Dose: 17 grams Senna (Senna -) 2 tab PO HS PRN PRN Reason: CONSTIPATION Sitagliptin Phosphate (Januvia -) 50 mg PO DAILY@0700 [facility] Last Admin: 03/08/19 06:07 Dose: 50 mg - Objective Vital Signs: Vital Signs Temperature 97.9 F 03/08/19 15:16 Pulse Rate 93 H 03/08/19 15:16 Respiratory Rate 20 03/08/19 15:16 Blood Pressure 151/97 03/08/19 15:16 O2 Sat by Pulse Oximetry (%) 97 03/08/19 09:00 Constitutional: Yes: Well Nourished, Calm Eyes: Yes: WNL HENT: Yes: WNL Neck: Yes: WNL Cardiovascular: Yes: Regular Rate and Rhythm, S1, S2 Respiratory: Yes: Diminished Gastrointestinal: Yes: Normal Bowel Sounds, Soft Extremities: Yes: WNL Edema: No Labs: Problem List - Problems (1) Dyspnea Code(s): R06.00 - DYSPNEA, UNSPECIFIED Qualifiers: Dyspnea type: unspecified Qualified Code(s): R06.00 - Dyspnea, unspecified (2) Hypoxia Code(s): R09.02 - HYPOXEMIA (3) Obesity Code(s): E66.9 - OBESITY, UNSPECIFIED (4) Productive cough Code(s): R05 - COUGH (5) Wheezing Code(s): R06.2 - WHEEZING (6) Asthmatic bronchitis Code(s): J45.909 - UNSPECIFIED ASTHMA, UNCOMPLICATED (7) Acute respiratory failure with hypoxia and hypercapnia Code(s): J96.01 - ACUTE RESPIRATORY FAILURE WITH HYPOXIA; J96.02 - ACUTE RESPIRATORY FAILURE WITH HYPERCAPNIA (8) Diabetes Code(s): E11.9 - TYPE 2 DIABETES MELLITUS WITHOUT COMPLICATIONS (9) HTN (hypertension) Code(s): I10 - ESSENTIAL (PRIMARY) HYPERTENSION (10) Hypothyroidism Code(s): E03.9 - HYPOTHYROIDISM, UNSPECIFIED Assessment/Plan IMP ACUTE HYPOXEMIC/HYPERCPNEIC RESPIRATORY FAILURE ASTHMATIC BRONCHITIS URI ? COPD HTN DM GROUND GLASS OPACITY PLAN IV STEROIDS SAME DOSE INHALED BRONCHODILATORS O2 OUTPATIENT PFTS CHECK AMBULATORY O2 SAT PRIOR TO DISCHARGE TO DETERMINE IF PT IS A CANDIDATE FOR HOME O2 F/U CHEST CT 3-[address] BOWERS Problem List - Problems (1) Dyspnea Code(s): R06.00 - DYSPNEA, UNSPECIFIED Qualifiers: Dyspnea type: unspecified Qualified Code(s): R06.00 - Dyspnea, unspecified (2) Hypoxia Code(s): R09.02 - HYPOXEMIA (3) Obesity Code(s): E66.9 - OBESITY, UNSPECIFIED (4) Productive cough Code(s): R05 - COUGH (5) Wheezing Code(s): R06.2 - WHEEZING (6) Asthmatic bronchitis Code(s): J45.909 - UNSPECIFIED ASTHMA, UNCOMPLICATED (7) Acute respiratory failure with hypoxia and hypercapnia Code(s): J96.01 - ACUTE RESPIRATORY FAILURE WITH HYPOXIA; J96.02 - ACUTE RESPIRATORY FAILURE WITH HYPERCAPNIA (8) Diabetes Code(s): E11.9 - TYPE 2 DIABETES MELLITUS WITHOUT COMPLICATIONS (9) HTN (hypertension) Code(s): I10 - ESSENTIAL (PRIMARY) HYPERTENSION (10) Hypothyroidism Code(s): E03.9 - HYPOTHYROIDISM, UNSPECIFIED
[2019-03-08] MEDS: LATANOPROST 0.005% OPHTH SOLN 2.5ML BOTTLE OU SCH (21:29)
[2019-03-09] MEDS: methylPREDNISolone NA SUCC 40 MG/1 ML VIAL IVPUSH SCH ×3 (02:15→21:24)
[2019-03-09] MEDS ORDERED: LEVOTHYROXINE NA 25 MCG TABLET (FP) ONE (05:36)
[2019-03-09] MEDS ORDERED: LEVOTHYROXINE NA 112 MCG TABLET (FP) ONE (05:36)
[2019-03-09] MEDS: HEPARIN NA (PORCINE) 5,000 UNITS/ML 1ML VIAL SQ SCH ×3 (05:58→21:18)
[2019-03-09] MEDS: sitaGLIPtin PHOSPHATE 50 MG TABLET PO SCH (05:59)
[2019-03-09] MEDS: metFORMIN HCL 500 MG TABLET (FP) PO SCH (05:59)
[2019-03-09] MEDS: INSULIN SLIDING SCALE (NOVOLOG) 1 VIAL SQ SCH ×4 (06:00→21:24)
[2019-03-09] MEDS: LEVOTHYROXINE 112 MCG, LEVOTHYROXINE 25 MCG PO SCH (06:00)
[2019-03-09] MEDS: ALBUTEROL SO4 2.5/IPRATROPIUM 0.5 INH SOL 3 ML VIAL.NEB. NEB SCH ×4 (08:27→20:49)
[2019-03-09] MEDS: PANTOPRAZOLE 40 MG TABLET (FP) PO SCH (09:28)
[2019-03-09] MEDS: NIFEdipine E.R. 30 MG TABLET (FP) PO SCH (09:28)
[2019-03-09] MEDS: HYDROCHLOROTHIAZIDE 12.5 MG CAPSULE (FP) PO SCH (09:28)
[2019-03-09] MEDS: LISINOPRIL 10 MG TABLET (FP) PO SCH (09:28)
[2019-03-09] MEDS: POLYETHYLENE GLYCOL 3350 119 GM BTL PO SCH (09:29)
--- NOTE | 2019-03-09 09:55 | PN ---
Progress Note (short form) - Note Progress Note: pt seen/ examined chart reviewed feels same bp also high Vital Signs Temp 98.5 F 03/09/19 06:20 Pulse 77 03/09/19 06:20 Resp 20 03/09/19 06:20 BP 157/74 03/09/19 06:20 Pulse Ox 96 03/08/19 21:00 Intake & Output 03/08/19 03/08/19 03/09/19 11:59 23:59 11:59 Intake Total 700 100 Balance 700 100 Weight 236 lb Intake: Oral 700 100 Other: Voiding Method Toilet Toilet # Unmeasured Voids Void 2 1 1 Bowel Movement No No No # Bowel Movements 1 Height 5 ft 3 in Body Mass Index (BMI) 41.8 Active Medications Acetaminophen (Tylenol -) 650 mg PO Q6H PRN PRN Reason: FEVER Last Admin: 03/06/19 10:37 Dose: 650 mg Albuterol Sulfate (Ventolin 0.083% Nebulizer Soln -) 1 amp NEB Q6H PRN PRN Reason: SHORT OF BREATH/WHEEZING Albuterol/Ipratropium (Duoneb -) 1 amp NEB RQID [facility] Last Admin: 03/09/19 08:27 Dose: 1 amp Docusate Sodium (Colace -) 100 mg PO Q8H PRN PRN Reason: CONSTIPATION Heparin Sodium (Porcine) (Heparin -) 5,000 unit SQ TID [facility] Last Admin: 03/09/19 05:58 Dose: Not Given Hydrochlorothiazide (Hctz -) 12.5 mg PO DAILY [facility] Last Admin: 03/09/19 09:28 Dose: 12.5 mg Insulin Aspart (Novolog Vial Sliding Scale -) 1 vial SQ [facility]; Protocol Last Admin: 03/09/19 06:00 Dose: 2 units Latanoprost (Xalatan 0.005% Eye Drops -) 1 drop OU HS [facility] Last Admin: 03/08/19 21:29 Dose: 1 drop Levothyroxine Sodium 112 mcg/ (Levothyroxine Sodium 25 mcg) 137 mcg PO DAILY@ 0700 [facility] Last Admin: 03/09/19 06:00 Dose: 137 mcg Lisinopril (Prinivil) 10 mg PO DAILY [facility] Last Admin: 03/09/19 09:28 Dose: 10 mg Metformin HCl (Glucophage -) 1,000 mg PO ACBK [facility] Last Admin: 03/09/19 05:59 Dose: 1,000 mg Methylprednisolone Sodium Succinate (Solu-Medrol -) 40 mg IVPUSH Q8H-IV [facility] Last Admin: 03/09/19 09:28 Dose: 40 mg Nifedipine (Procardia Xl -) 30 mg PO DAILY [facility] Last Admin: 03/09/19 09:28 Dose: 30 mg Non-Formulary Medication (Brinzolamide/Brimonidine Tart [Simbrinza 1%-0.2% Eye Drops]) 8 ml OP DAILY [facility] Last Admin: 03/05/19 21:47 Dose: Not Given Pantoprazole Sodium (Protonix -) 40 mg PO DAILY [facility] Last Admin: 03/09/19 09:28 Dose: 40 mg Polyethylene Glycol (Miralax (For Daily Use) -) 17 gm PO DAILY [facility] Last Admin: 03/09/19 09:29 Dose: Not Given Senna (Senna -) 2 tab PO HS PRN PRN Reason: CONSTIPATION Sitagliptin Phosphate (Januvia -) 50 mg PO DAILY@0700 [facility] Last Admin: 03/09/19 05:59 Dose: 50 mg CBC, BMP 03/06/19 05:30 03/06/19 05:20 s1 s2 RRR Lungs B/L ronchi+ Abd- soft, obese, NT no edema PLAN COPD exacerbation ex smoker morbid obesity --on IV solumedrol Nebs q6h O2 Pulmonary eval noted CT chest-- results noted-- needs to repeat in 3 months monitor blood sugars continue with meds increase procardia f/u labs will follow discussed with nursing staff also Problem List - Problems (1) Hypoxia Code(s): R09.02 - HYPOXEMIA (2) Obstructive lung disease Code(s): J44.9 - CHRONIC OBSTRUCTIVE PULMONARY DISEASE, UNSPECIFIED (3) COPD (chronic obstructive pulmonary disease) with emphysema Code(s): J43.9 - EMPHYSEMA, UNSPECIFIED (4) Diabetes 1.5, managed as type 2 Code(s): E13.9 - OTHER SPECIFIED DIABETES MELLITUS WITHOUT COMPLICATIONS
[2019-03-09] MEDS ORDERED: NIFEdipine E.R. 30 MG TABLET (FP) PO ONE (10:00)
--- NOTE | 2019-03-09 15:53 | PN ---
Progress Note, Physician History of Present Illness: PULMONARY ALERT,NO DISTRESS,DYSPNEA IMPROVED,LESS COUGH - Current Medication List Current Medications: Active Medications Acetaminophen (Tylenol -) 650 mg PO Q6H PRN PRN Reason: FEVER Last Admin: 03/06/19 10:37 Dose: 650 mg Albuterol Sulfate (Ventolin 0.083% Nebulizer Soln -) 1 amp NEB Q6H PRN PRN Reason: SHORT OF BREATH/WHEEZING Albuterol/Ipratropium (Duoneb -) 1 amp NEB RQID [facility] Last Admin: 03/09/19 15:46 Dose: 1 amp Docusate Sodium (Colace -) 100 mg PO Q8H PRN PRN Reason: CONSTIPATION Heparin Sodium (Porcine) (Heparin -) 5,000 unit SQ TID [facility] Last Admin: 03/09/19 13:06 Dose: Not Given Hydrochlorothiazide (Hctz -) 12.5 mg PO DAILY [facility] Last Admin: 03/09/19 09:28 Dose: 12.5 mg Insulin Aspart (Novolog Vial Sliding Scale -) 1 vial SQ [facility]; Protocol Last Admin: 03/09/19 11:15 Dose: Not Given Latanoprost (Xalatan 0.005% Eye Drops -) 1 drop OU HS [facility] Last Admin: 03/08/19 21:29 Dose: 1 drop Levothyroxine Sodium 112 mcg/ (Levothyroxine Sodium 25 mcg) 137 mcg PO DAILY@ 0700 [facility] Last Admin: 03/09/19 06:00 Dose: 137 mcg Lisinopril (Prinivil) 10 mg PO DAILY [facility] Last Admin: 03/09/19 09:28 Dose: 10 mg Metformin HCl (Glucophage -) 1,000 mg PO ACBK [facility] Last Admin: 03/09/19 05:59 Dose: 1,000 mg Methylprednisolone Sodium Succinate (Solu-Medrol -) 40 mg IVPUSH Q8H-IV [facility] Last Admin: 03/09/19 09:28 Dose: 40 mg Nifedipine (Procardia Xl -) 60 mg PO DAILY@0600 [facility] Non-Formulary Medication (Brinzolamide/Brimonidine Tart [Simbrinza 1%-0.2% Eye Drops]) 8 ml OP DAILY [facility] Last Admin: 03/05/19 21:47 Dose: Not Given Pantoprazole Sodium (Protonix -) 40 mg PO DAILY [facility] Last Admin: 03/09/19 09:28 Dose: 40 mg Polyethylene Glycol (Miralax (For Daily Use) -) 17 gm PO DAILY [facility] Last Admin: 03/09/19 09:29 Dose: Not Given Senna (Senna -) 2 tab PO HS PRN PRN Reason: CONSTIPATION Sitagliptin Phosphate (Januvia -) 50 mg PO DAILY@0700 [facility] Last Admin: 03/09/19 05:59 Dose: 50 mg - Objective Vital Signs: Vital Signs Temperature 97.7 F 03/09/19 13:44 Pulse Rate 84 03/09/19 13:44 Respiratory Rate 20 03/09/19 13:44 Blood Pressure 158/90 03/09/19 13:44 O2 Sat by Pulse Oximetry (%) 99 03/09/19 09:00 Constitutional: Yes: Well Nourished, Calm Eyes: Yes: WNL HENT: Yes: WNL Neck: Yes: WNL Cardiovascular: Yes: Regular Rate and Rhythm, S1, S2 Respiratory: Yes: CTA Bilaterally Gastrointestinal: Yes: Normal Bowel Sounds, Soft Extremities: Yes: WNL Edema: No Labs: CBC, BMP 03/06/19 05:30 Problem List - Problems (1) Dyspnea Code(s): R06.00 - DYSPNEA, UNSPECIFIED Qualifiers: Dyspnea type: unspecified Qualified Code(s): R06.00 - Dyspnea, unspecified (2) Hypoxia Code(s): R09.02 - HYPOXEMIA (3) Obesity Code(s): E66.9 - OBESITY, UNSPECIFIED (4) Productive cough Code(s): R05 - COUGH (5) Wheezing Code(s): R06.2 - WHEEZING (6) Asthmatic bronchitis Code(s): J45.909 - UNSPECIFIED ASTHMA, UNCOMPLICATED (7) Acute respiratory failure with hypoxia and hypercapnia Code(s): J96.01 - ACUTE RESPIRATORY FAILURE WITH HYPOXIA; J96.02 - ACUTE RESPIRATORY FAILURE WITH HYPERCAPNIA (8) Diabetes Code(s): E11.9 - TYPE 2 DIABETES MELLITUS WITHOUT COMPLICATIONS (9) HTN (hypertension) Code(s): I10 - ESSENTIAL (PRIMARY) HYPERTENSION (10) Hypothyroidism Code(s): E03.9 - HYPOTHYROIDISM, UNSPECIFIED Assessment/Plan IMP ACUTE HYPOXEMIC/HYPERCPNEIC RESPIRATORY FAILURE ASTHMATIC BRONCHITIS URI ? COPD HTN DM GROUND GLASS OPACITY PLAN STEROID TAPER INHALED BRONCHODILATORS O2 OUTPATIENT PFTS CHECK AMBULATORY O2 SAT PRIOR TO DISCHARGE TO DETERMINE IF PT IS A CANDIDATE FOR HOME O2 F/U CHEST CT 3-[address] BOWERS Problem List - Problems (1) Dyspnea Code(s): R06.00 - DYSPNEA, UNSPECIFIED Qualifiers: Dyspnea type: unspecified Qualified Code(s): R06.00 - Dyspnea, unspecified (2) Hypoxia Code(s): R09.02 - HYPOXEMIA (3) Obesity Code(s): E66.9 - OBESITY, UNSPECIFIED (4) Productive cough Code(s): R05 - COUGH (5) Wheezing Code(s): R06.2 - WHEEZING (6) Asthmatic bronchitis Code(s): J45.909 - UNSPECIFIED ASTHMA, UNCOMPLICATED (7) Acute respiratory failure with hypoxia and hypercapnia Code(s): J96.01 - ACUTE RESPIRATORY FAILURE WITH HYPOXIA; J96.02 - ACUTE RESPIRATORY FAILURE WITH HYPERCAPNIA (8) Diabetes Code(s): E11.9 - TYPE 2 DIABETES MELLITUS WITHOUT COMPLICATIONS (9) HTN (hypertension) Code(s): I10 - ESSENTIAL (PRIMARY) HYPERTENSION (10) Hypothyroidism Code(s): E03.9 - HYPOTHYROIDISM, UNSPECIFIED
[2019-03-09] MEDS: LATANOPROST 0.005% OPHTH SOLN 2.5ML BOTTLE OU SCH (21:24)
[2019-03-10] MEDS: HEPARIN NA (PORCINE) 5,000 UNITS/ML 1ML VIAL SQ SCH ×3 (05:36→21:10)
[2019-03-10] MEDS ORDERED: LEVOTHYROXINE NA 25 MCG TABLET (FP) ONE (05:37)
[2019-03-10] MEDS ORDERED: LEVOTHYROXINE NA 112 MCG TABLET (FP) ONE (05:37)
[2019-03-10] MEDS: ACETAMINOPHEN 325 MG TABLET (FP) PO PRN (05:45)
[2019-03-10] MEDS: metFORMIN HCL 500 MG TABLET (FP) PO SCH (06:30)
[2019-03-10] MEDS: NIFEdipine E.R 60 MG TABLET (UD) PO SCH (06:30)
[2019-03-10] MEDS: INSULIN SLIDING SCALE (NOVOLOG) 1 VIAL SQ SCH ×4 (06:30→21:02)
[2019-03-10] MEDS: sitaGLIPtin PHOSPHATE 50 MG TABLET PO SCH (06:30)
[2019-03-10] MEDS: LEVOTHYROXINE 112 MCG, LEVOTHYROXINE 25 MCG PO SCH (06:31)
[2019-03-10] MEDS: ALBUTEROL SO4 2.5/IPRATROPIUM 0.5 INH SOL 3 ML VIAL.NEB. NEB SCH ×4 (07:25→20:11)
[2019-03-10] MEDS ORDERED: IBUPROFEN 400 MG TABLET (FP) PO PRN (08:37)
--- NOTE | 2019-03-10 08:40 | PN ---
Progress Note (short form) - Note Progress Note: pt seen/ examined feels better complains of back pain overall better Vital Signs Temp 97.9 F 03/10/19 06:00 Pulse 87 03/10/19 06:00 Resp 20 03/10/19 06:00 BP 147/86 03/10/19 06:00 Pulse Ox 96 03/09/19 21:00 Intake & Output 03/09/19 03/09/19 03/10/19 11:59 23:59 11:59 Intake Total 100 1580 400 Balance 100 1580 400 Intake: Oral 100 1580 400 Other: Voiding Method Toilet Toilet Toilet # Unmeasured Voids Void 1 2 Bowel Movement No No # Bowel Movements 2 Active Medications Acetaminophen (Tylenol -) 650 mg PO Q6H PRN PRN Reason: FEVER Last Admin: 03/10/19 05:45 Dose: 650 mg Albuterol Sulfate (Ventolin 0.083% Nebulizer Soln -) 1 amp NEB Q6H PRN PRN Reason: SHORT OF BREATH/WHEEZING Albuterol/Ipratropium (Duoneb -) 1 amp NEB RQID [facility] Last Admin: 03/10/19 07:25 Dose: 1 amp Docusate Sodium (Colace -) 100 mg PO Q8H PRN PRN Reason: CONSTIPATION Heparin Sodium (Porcine) (Heparin -) 5,000 unit SQ TID [facility] Last Admin: 03/10/19 05:36 Dose: Not Given Hydrochlorothiazide (Hctz -) 12.5 mg PO DAILY [facility] Last Admin: 03/09/19 09:28 Dose: 12.5 mg Ibuprofen (Motrin -) 400 mg PO Q6H PRN PRN Reason: FEVER Insulin Aspart (Novolog Vial Sliding Scale -) 1 vial SQ [facility]; Protocol Last Admin: 03/10/19 06:30 Dose: 4 units Latanoprost (Xalatan 0.005% Eye Drops -) 1 drop OU HS [facility] Last Admin: 03/09/19 21:24 Dose: 1 drop Levothyroxine Sodium 112 mcg/ (Levothyroxine Sodium 25 mcg) 137 mcg PO DAILY@ 0700 [facility] Last Admin: 03/10/19 06:31 Dose: 137 mcg Lisinopril (Prinivil) 10 mg PO DAILY [facility] Last Admin: 03/09/19 09:28 Dose: 10 mg Metformin HCl (Glucophage -) 1,000 mg PO ACBK [facility] Last Admin: 03/10/19 06:30 Dose: 1,000 mg Methylprednisolone Sodium Succinate (Solu-Medrol -) 40 mg IVPUSH Q12H [facility] Last Admin: 03/09/19 21:24 Dose: 40 mg Nifedipine (Procardia Xl -) 60 mg PO DAILY@0600 [facility] Last Admin: 03/10/19 06:30 Dose: 60 mg Non-Formulary Medication (Brinzolamide/Brimonidine Tart [Simbrinza 1%-0.2% Eye Drops]) 8 ml OP DAILY [facility] Last Admin: 03/05/19 21:47 Dose: Not Given Pantoprazole Sodium (Protonix -) 40 mg PO DAILY [facility] Last Admin: 03/09/19 09:28 Dose: 40 mg Polyethylene Glycol (Miralax (For Daily Use) -) 17 gm PO DAILY [facility] Last Admin: 03/09/19 09:29 Dose: Not Given Senna (Senna -) 2 tab PO HS PRN PRN Reason: CONSTIPATION Sitagliptin Phosphate (Januvia -) 50 mg PO DAILY@0700 [facility] Last Admin: 03/10/19 06:30 Dose: 50 mg CBC, BMP 03/06/19 05:30 03/06/19 05:20 Physical Exam s1 s2 RRR Lungs B/L ronchi+-- better Abd- soft, obese, NT no edema PLAN COPD exacerbation-- better ex smoker morbid obesity --on IV solumedrol Nebs q6h O2 Pulmonary following CT chest-- results noted-- needs to repeat in 3 months monitor blood sugars continue with meds monitor bp Motrin prn for back pain ambulate will follow Problem List - Problems (1) Hypoxia Code(s): R09.02 - HYPOXEMIA (2) Obstructive lung disease Code(s): J44.9 - CHRONIC OBSTRUCTIVE PULMONARY DISEASE, UNSPECIFIED (3) COPD (chronic obstructive pulmonary disease) with emphysema Code(s): J43.9 - EMPHYSEMA, UNSPECIFIED (4) Diabetes 1.5, managed as type 2 Code(s): E13.9 - OTHER SPECIFIED DIABETES MELLITUS WITHOUT COMPLICATIONS
[2019-03-10] MEDS: methylPREDNISolone NA SUCC 40 MG/1 ML VIAL IVPUSH SCH ×2 (09:21→21:03)
[2019-03-10] MEDS: LISINOPRIL 10 MG TABLET (FP) PO SCH (09:24)
[2019-03-10] MEDS: HYDROCHLOROTHIAZIDE 12.5 MG CAPSULE (FP) PO SCH (09:24)
[2019-03-10] MEDS: PANTOPRAZOLE 40 MG TABLET (FP) PO SCH (09:24)
--- NOTE | 2019-03-10 14:38 | PN ---
Progress Note, Physician History of Present Illness: pulmonary alert,feeling better ,-sob,-cough - Current Medication List Current Medications: Active Medications Acetaminophen (Tylenol -) 650 mg PO Q6H PRN PRN Reason: FEVER Last Admin: 03/10/19 05:45 Dose: 650 mg Albuterol Sulfate (Ventolin 0.083% Nebulizer Soln -) 1 amp NEB Q6H PRN PRN Reason: SHORT OF BREATH/WHEEZING Albuterol/Ipratropium (Duoneb -) 1 amp NEB RQID [facility] Last Admin: 03/10/19 11:00 Dose: 1 amp Docusate Sodium (Colace -) 100 mg PO Q8H PRN PRN Reason: CONSTIPATION Heparin Sodium (Porcine) (Heparin -) 5,000 unit SQ TID [facility] Last Admin: 03/10/19 05:36 Dose: Not Given Hydrochlorothiazide (Hctz -) 12.5 mg PO DAILY [facility] Last Admin: 03/10/19 09:24 Dose: 12.5 mg Ibuprofen (Motrin -) 400 mg PO Q6H PRN PRN Reason: FEVER Insulin Aspart (Novolog Vial Sliding Scale -) 1 vial SQ ACHS [facility]; Protocol Last Admin: 03/10/19 12:19 Dose: 2 units Latanoprost (Xalatan 0.005% Eye Drops -) 1 drop OU HS [facility] Last Admin: 03/09/19 21:24 Dose: 1 drop Levothyroxine Sodium 112 mcg/ (Levothyroxine Sodium 25 mcg) 137 mcg PO DAILY@ 0700 [facility] Last Admin: 03/10/19 06:31 Dose: 137 mcg Lisinopril (Prinivil) 10 mg PO DAILY [facility] Last Admin: 03/10/19 09:24 Dose: 10 mg Metformin HCl (Glucophage -) 1,000 mg PO ACBK [facility] Last Admin: 03/10/19 06:30 Dose: 1,000 mg Methylprednisolone Sodium Succinate (Solu-Medrol -) 40 mg IVPUSH Q12H [facility] Last Admin: 03/10/19 09:21 Dose: 40 mg Nifedipine (Procardia Xl -) 60 mg PO DAILY@0600 [facility] Last Admin: 03/10/19 06:30 Dose: 60 mg Non-Formulary Medication (Brinzolamide/Brimonidine Tart [Simbrinza 1%-0.2% Eye Drops]) 8 ml OP DAILY [facility] Last Admin: 03/05/19 21:47 Dose: Not Given Pantoprazole Sodium (Protonix -) 40 mg PO DAILY [facility] Last Admin: 03/10/19 09:24 Dose: 40 mg Polyethylene Glycol (Miralax (For Daily Use) -) 17 gm PO DAILY [facility] Last Admin: 03/09/19 09:29 Dose: Not Given Senna (Senna -) 2 tab PO HS PRN PRN Reason: CONSTIPATION Sitagliptin Phosphate (Januvia -) 50 mg PO DAILY@0700 [facility] Last Admin: 03/10/19 06:30 Dose: 50 mg - Objective Vital Signs: Vital Signs Temperature 97.9 F 03/10/19 06:00 Pulse Rate 87 03/10/19 06:00 Respiratory Rate 20 03/10/19 06:00 Blood Pressure 147/86 03/10/19 06:00 O2 Sat by Pulse Oximetry (%) 96 03/09/19 21:00 Constitutional: Yes: Well Nourished, Calm Eyes: Yes: WNL HENT: Yes: WNL Neck: Yes: WNL Cardiovascular: Yes: Regular Rate and Rhythm, S1, S2 Respiratory: Yes: CTA Bilaterally Gastrointestinal: Yes: Normal Bowel Sounds, Soft Extremities: Yes: WNL Edema: Yes Problem List - Problems (1) Dyspnea Code(s): R06.00 - DYSPNEA, UNSPECIFIED Qualifiers: Dyspnea type: unspecified Qualified Code(s): R06.00 - Dyspnea, unspecified (2) Hypoxia Code(s): R09.02 - HYPOXEMIA (3) Obesity Code(s): E66.9 - OBESITY, UNSPECIFIED (4) Productive cough Code(s): R05 - COUGH (5) Wheezing Code(s): R06.2 - WHEEZING (6) Asthmatic bronchitis Code(s): J45.909 - UNSPECIFIED ASTHMA, UNCOMPLICATED (7) Acute respiratory failure with hypoxia and hypercapnia Code(s): J96.01 - ACUTE RESPIRATORY FAILURE WITH HYPOXIA; J96.02 - ACUTE RESPIRATORY FAILURE WITH HYPERCAPNIA (8) Diabetes Code(s): E11.9 - TYPE 2 DIABETES MELLITUS WITHOUT COMPLICATIONS (9) HTN (hypertension) Code(s): I10 - ESSENTIAL (PRIMARY) HYPERTENSION (10) Hypothyroidism Code(s): E03.9 - HYPOTHYROIDISM, UNSPECIFIED Assessment/Plan IMP ACUTE HYPOXEMIC/HYPERCPNEIC RESPIRATORY FAILURE ASTHMATIC BRONCHITIS URI ? COPD HTN DM GROUND GLASS OPACITY PLAN STEROID TAPER INHALED BRONCHODILATORS O2 OUTPATIENT PFTS CHECK AMBULATORY O2 SAT PRIOR TO DISCHARGE TO DETERMINE IF PT IS A CANDIDATE FOR HOME O2 F/U CHEST CT 3-[address] BOWERS Problem List - Problems (1) Dyspnea Code(s): R06.00 - DYSPNEA, UNSPECIFIED Qualifiers: Dyspnea type: unspecified Qualified Code(s): R06.00 - Dyspnea, unspecified (2) Hypoxia Code(s): R09.02 - HYPOXEMIA (3) Obesity Code(s): E66.9 - OBESITY, UNSPECIFIED (4) Productive cough Code(s): R05 - COUGH (5) Wheezing Code(s): R06.2 - WHEEZING (6) Asthmatic bronchitis Code(s): J45.909 - UNSPECIFIED ASTHMA, UNCOMPLICATED (7) Acute respiratory failure with hypoxia and hypercapnia Code(s): J96.01 - ACUTE RESPIRATORY FAILURE WITH HYPOXIA; J96.02 - ACUTE RESPIRATORY FAILURE WITH HYPERCAPNIA (8) Diabetes Code(s): E11.9 - TYPE 2 DIABETES MELLITUS WITHOUT COMPLICATIONS (9) HTN (hypertension) Code(s): I10 - ESSENTIAL (PRIMARY) HYPERTENSION (10) Hypothyroidism Code(s): E03.9 - HYPOTHYROIDISM, UNSPECIFIED
[2019-03-10] MEDS: POLYETHYLENE GLYCOL 3350 119 GM BTL PO SCH (17:46)
[2019-03-10] MEDS ORDERED: INSULIN (NOVOLOG) ASPART 100 UNITS/ML 10ML VIAL ONE (20:26)
[2019-03-10] MEDS: LATANOPROST 0.005% OPHTH SOLN 2.5ML BOTTLE OU SCH (21:04)
[2019-03-10] MEDS ORDERED: LABETALOL HCL 200 MG TABLET (FP) PO ONE (22:49)
[2019-03-11] MEDS ORDERED: LEVOTHYROXINE NA 112 MCG TABLET (FP) ONE (05:47)
[2019-03-11] MEDS ORDERED: LEVOTHYROXINE NA 25 MCG TABLET (FP) ONE (05:47)
[2019-03-11] MEDS: sitaGLIPtin PHOSPHATE 50 MG TABLET PO SCH (06:38)
[2019-03-11] MEDS: HEPARIN NA (PORCINE) 5,000 UNITS/ML 1ML VIAL SQ SCH ×3 (06:38→21:33)
[2019-03-11] MEDS: metFORMIN HCL 500 MG TABLET (FP) PO SCH (06:38)
[2019-03-11] MEDS: LEVOTHYROXINE 112 MCG, LEVOTHYROXINE 25 MCG PO SCH (06:39)
[2019-03-11] MEDS: NIFEdipine E.R 60 MG TABLET (UD) PO SCH (06:39)
[2019-03-11] MEDS: INSULIN SLIDING SCALE (NOVOLOG) 1 VIAL SQ SCH ×4 (06:40→21:33)
[2019-03-11] MEDS: HYDROCHLOROTHIAZIDE 12.5 MG CAPSULE (FP) PO SCH (09:47)
[2019-03-11] MEDS: PANTOPRAZOLE 40 MG TABLET (FP) PO SCH (09:48)
[2019-03-11] MEDS: LISINOPRIL 10 MG TABLET (FP) PO SCH (09:48)
[2019-03-11] MEDS: methylPREDNISolone NA SUCC 40 MG/1 ML VIAL IVPUSH SCH ×2 (09:48→21:33)
[2019-03-11] MEDS: POLYETHYLENE GLYCOL 3350 119 GM BTL PO SCH (11:50)
--- NOTE | 2019-03-11 12:08 | PN ---
Progress Note (short form) - Note Progress Note: pt seen/ examined feels better breathing better denies back pain today Vital Signs Temp 98.4 F 03/11/19 06:26 Pulse 72 03/11/19 06:26 Resp 20 03/11/19 06:26 BP 143/86 03/11/19 06:26 Pulse Ox 92 L 03/10/19 21:00 Intake & Output 03/10/19 03/11/19 03/11/19 23:59 11:59 23:59 Intake Total 350 150 Balance 350 150 Intake: Oral 350 150 Other: Voiding Method Toilet Toilet # Unmeasured Voids Void 1 Active Medications Acetaminophen (Tylenol -) 650 mg PO Q6H PRN PRN Reason: FEVER Last Admin: 03/10/19 05:45 Dose: 650 mg Albuterol Sulfate (Ventolin 0.083% Nebulizer Soln -) 1 amp NEB Q6H PRN PRN Reason: SHORT OF BREATH/WHEEZING Albuterol/Ipratropium (Duoneb -) 1 amp NEB RQID [facility] Last Admin: 03/10/19 07:25 Dose: 1 amp Docusate Sodium (Colace -) 100 mg PO Q8H PRN PRN Reason: CONSTIPATION Heparin Sodium (Porcine) (Heparin -) 5,000 unit SQ TID [facility] Last Admin: 03/10/19 05:36 Dose: Not Given Hydrochlorothiazide (Hctz -) 12.5 mg PO DAILY [facility] Last Admin: 03/09/19 09:28 Dose: 12.5 mg Ibuprofen (Motrin -) 400 mg PO Q6H PRN PRN Reason: FEVER Insulin Aspart (Novolog Vial Sliding Scale -) 1 vial SQ [facility]; Protocol Last Admin: 03/10/19 06:30 Dose: 4 units Latanoprost (Xalatan 0.005% Eye Drops -) 1 drop OU HS [facility] Last Admin: 03/09/19 21:24 Dose: 1 drop Levothyroxine Sodium 112 mcg/ (Levothyroxine Sodium 25 mcg) 137 mcg PO DAILY@ 0700 [facility] Last Admin: 03/10/19 06:31 Dose: 137 mcg Lisinopril (Prinivil) 10 mg PO DAILY [facility] Last Admin: 03/09/19 09:28 Dose: 10 mg Metformin HCl (Glucophage -) 1,000 mg PO ACBK [facility] Last Admin: 03/10/19 06:30 Dose: 1,000 mg Methylprednisolone Sodium Succinate (Solu-Medrol -) 40 mg IVPUSH Q12H [facility] Last Admin: 03/09/19 21:24 Dose: 40 mg Nifedipine (Procardia Xl -) 60 mg PO DAILY@0600 [facility] Last Admin: 03/10/19 06:30 Dose: 60 mg Non-Formulary Medication (Brinzolamide/Brimonidine Tart [Simbrinza 1%-0.2% Eye Drops]) 8 ml OP DAILY [facility] Last Admin: 03/05/19 21:47 Dose: Not Given Pantoprazole Sodium (Protonix -) 40 mg PO DAILY [facility] Last Admin: 03/09/19 09:28 Dose: 40 mg Polyethylene Glycol (Miralax (For Daily Use) -) 17 gm PO DAILY [facility] Last Admin: 03/09/19 09:29 Dose: Not Given Senna (Senna -) 2 tab PO HS PRN PRN Reason: CONSTIPATION Sitagliptin Phosphate (Januvia -) 50 mg PO DAILY@0700 [facility] Last Admin: 03/10/19 06:30 Dose: 50 mg CBC, BMP 03/06/19 05:30 03/06/19 05:20 Physical Exam awake/ comfortable s1 s2 RRR Lungs B/L ronchi+-- better Abd- soft, obese, NT no edema PLAN COPD exacerbation-- better ex smoker morbid obesity --on IV solumedrol-- taper Nebs q6h O2 Pulmonary following CT chest-- results noted-- needs to repeat in 3 months monitor blood sugars continue with meds monitor bp Motrin prn for back pain ambulate will follow f/u labs if better-- anticipate d/c in am Problem List - Problems (1) Hypoxia Code(s): R09.02 - HYPOXEMIA (2) Obstructive lung disease Code(s): J44.9 - CHRONIC OBSTRUCTIVE PULMONARY DISEASE, UNSPECIFIED (3) COPD (chronic obstructive pulmonary disease) with emphysema Code(s): J43.9 - EMPHYSEMA, UNSPECIFIED (4) Diabetes 1.5, managed as type 2 Code(s): E13.9 - OTHER SPECIFIED DIABETES MELLITUS WITHOUT COMPLICATIONS
--- NOTE | 2019-03-11 12:46 | PN ---
Progress Note, Physician History of Present Illness: pulmonary alert,sitting up in bed,-resp distress - Current Medication List Current Medications: Active Medications Acetaminophen (Tylenol -) 650 mg PO Q6H PRN PRN Reason: FEVER Last Admin: 03/10/19 05:45 Dose: 650 mg Docusate Sodium (Colace -) 100 mg PO Q8H PRN PRN Reason: CONSTIPATION Heparin Sodium (Porcine) (Heparin -) 5,000 unit SQ TID [facility] Last Admin: 03/11/19 06:38 Dose: Not Given Hydrochlorothiazide (Hctz -) 12.5 mg PO DAILY [facility] Last Admin: 03/11/19 09:47 Dose: 12.5 mg Ibuprofen (Motrin -) 400 mg PO Q6H PRN PRN Reason: FEVER Last Admin: 03/11/19 06:45 Dose: 400 mg Insulin Aspart (Novolog Vial Sliding Scale -) 1 vial SQ [facility]; Protocol Last Admin: 03/11/19 11:51 Dose: Not Given Latanoprost (Xalatan 0.005% Eye Drops -) 1 drop OU HS [facility] Last Admin: 03/10/19 21:04 Dose: 1 drop Levothyroxine Sodium 112 mcg/ (Levothyroxine Sodium 25 mcg) 137 mcg PO DAILY@ 0700 [facility] Last Admin: 03/11/19 06:39 Dose: 137 mcg Lisinopril (Prinivil) 10 mg PO DAILY [facility] Last Admin: 03/11/19 09:48 Dose: 10 mg Metformin HCl (Glucophage -) 1,000 mg PO ACBK [facility] Last Admin: 03/11/19 06:38 Dose: 1,000 mg Methylprednisolone Sodium Succinate (Solu-Medrol -) 30 mg IVPUSH Q12H [facility] Last Admin: 03/11/19 09:48 Dose: 30 mg Nifedipine (Procardia Xl -) 60 mg PO DAILY@0600 [facility] Last Admin: 03/11/19 06:39 Dose: 60 mg Non-Formulary Medication (Brinzolamide/Brimonidine Tart [Simbrinza 1%-0.2% Eye Drops]) 8 ml OP DAILY [facility] Last Admin: 03/05/19 21:47 Dose: Not Given Pantoprazole Sodium (Protonix -) 40 mg PO DAILY [facility] Last Admin: 03/11/19 09:48 Dose: 40 mg Polyethylene Glycol (Miralax (For Daily Use) -) 17 gm PO DAILY [facility] Last Admin: 03/11/19 11:50 Dose: Not Given Senna (Senna -) 2 tab PO HS PRN PRN Reason: CONSTIPATION Sitagliptin Phosphate (Januvia -) 50 mg PO DAILY@0700 [facility] Last Admin: 03/11/19 06:38 Dose: 50 mg - Objective Vital Signs: Vital Signs Temperature 98.4 F 03/11/19 06:26 Pulse Rate 72 03/11/19 06:26 Respiratory Rate 20 03/11/19 06:26 Blood Pressure 143/86 03/11/19 06:26 O2 Sat by Pulse Oximetry (%) 92 L 03/10/19 21:00 Constitutional: Yes: Well Nourished, Calm Eyes: Yes: WNL HENT: Yes: WNL Neck: Yes: WNL Cardiovascular: Yes: Regular Rate and Rhythm, S1, S2 Respiratory: Yes: CTA Bilaterally Gastrointestinal: Yes: Normal Bowel Sounds, Soft Extremities: Yes: WNL Edema: Yes Labs: CBC, BMP Problem List - Problems (1) Dyspnea Code(s): R06.00 - DYSPNEA, UNSPECIFIED Qualifiers: Dyspnea type: unspecified Qualified Code(s): R06.00 - Dyspnea, unspecified (2) Hypoxia Code(s): R09.02 - HYPOXEMIA (3) Obesity Code(s): E66.9 - OBESITY, UNSPECIFIED (4) Productive cough Code(s): R05 - COUGH (5) Wheezing Code(s): R06.2 - WHEEZING (6) Asthmatic bronchitis Code(s): J45.909 - UNSPECIFIED ASTHMA, UNCOMPLICATED (7) Acute respiratory failure with hypoxia and hypercapnia Code(s): J96.01 - ACUTE RESPIRATORY FAILURE WITH HYPOXIA; J96.02 - ACUTE RESPIRATORY FAILURE WITH HYPERCAPNIA (8) Diabetes Code(s): E11.9 - TYPE 2 DIABETES MELLITUS WITHOUT COMPLICATIONS (9) HTN (hypertension) Code(s): I10 - ESSENTIAL (PRIMARY) HYPERTENSION (10) Hypothyroidism Code(s): E03.9 - HYPOTHYROIDISM, UNSPECIFIED Assessment/Plan IMP ACUTE HYPOXEMIC/HYPERCPNEIC RESPIRATORY FAILURE ASTHMATIC BRONCHITIS URI ? COPD HTN DM GROUND GLASS OPACITY PLAN STEROID TAPER INHALED BRONCHODILATORS O2 OUTPATIENT PFTS AMBULATORY O2 SAT ON RA F/U CHEST CT 3-[address] BOWERS Problem List - Problems (1) Dyspnea Code(s): R06.00 - DYSPNEA, UNSPECIFIED Qualifiers: Dyspnea type: unspecified Qualified Code(s): R06.00 - Dyspnea, unspecified (2) Hypoxia Code(s): R09.02 - HYPOXEMIA (3) Obesity Code(s): E66.9 - OBESITY, UNSPECIFIED (4) Productive cough Code(s): R05 - COUGH (5) Wheezing Code(s): R06.2 - WHEEZING (6) Asthmatic bronchitis Code(s): J45.909 - UNSPECIFIED ASTHMA, UNCOMPLICATED (7) Acute respiratory failure with hypoxia and hypercapnia Code(s): J96.01 - ACUTE RESPIRATORY FAILURE WITH HYPOXIA; J96.02 - ACUTE RESPIRATORY FAILURE WITH HYPERCAPNIA (8) Diabetes Code(s): E11.9 - TYPE 2 DIABETES MELLITUS WITHOUT COMPLICATIONS (9) HTN (hypertension) Code(s): I10 - ESSENTIAL (PRIMARY) HYPERTENSION (10) Hypothyroidism Code(s): E03.9 - HYPOTHYROIDISM, UNSPECIFIED
[2019-03-11] MEDS: LATANOPROST 0.005% OPHTH SOLN 2.5ML BOTTLE OU SCH (21:33)
[2019-03-12] MEDS: ACETAMINOPHEN 325 MG TABLET (FP) PO PRN ×2 (04:26→17:04)
[2019-03-12] MEDS ORDERED: LEVOTHYROXINE NA 112 MCG TABLET (FP) ONE (05:15)
[2019-03-12] MEDS ORDERED: LEVOTHYROXINE NA 25 MCG TABLET (FP) ONE (05:15)
[2019-03-12] MEDS: metFORMIN HCL 500 MG TABLET (FP) PO SCH (06:24)
[2019-03-12] MEDS: HEPARIN NA (PORCINE) 5,000 UNITS/ML 1ML VIAL SQ SCH ×3 (06:24→21:51)
[2019-03-12] MEDS: NIFEdipine E.R 60 MG TABLET (UD) PO SCH (06:25)
[2019-03-12] MEDS: sitaGLIPtin PHOSPHATE 50 MG TABLET PO SCH (06:25)
[2019-03-12] MEDS: LEVOTHYROXINE 112 MCG, LEVOTHYROXINE 25 MCG PO SCH (06:25)
[2019-03-12] MEDS: INSULIN SLIDING SCALE (NOVOLOG) 1 VIAL SQ SCH ×4 (06:26→21:50)
[2019-03-12 07:50] LABS: BASO % 0.1 % (0-2.0); HEMATOCRIT 48.3 % (32.4-45.2); HEMOGLOBIN 15.8 GM/dL (10.7-15.3); LYMPH % 9.9 % (8-40); MCH 30.1 pg (25.7-33.7); MCHC 32.6 g/dl (32.0-36.0); MEAN CELL VOLUME 92.1 fl (80-96); MONO % 3.5 % (3.8-10.2); NEUT % 86.5 % (42.8-82.8); PLATELET COUNT 222 K/MM3 (134-434); RBC 5.24 M/mm3 (3.60-5.2); RDW 14.6 % (11.6-15.6); WHITE BLOOD COUNT 7.2 K/mm3 (4.0-10.0)
[2019-03-12 07:51] LABS: ALBUMIN 3.1 g/dl (3.4-5.0); ALK PHOS 72 U/L (45-117); ANION GAP 3 MMOL/L (8-16); BILIRUBIN,TOTAL 0.4 mg/dL (0.2-1); BLOOD UREA NITROGEN 37 mg/dL (7-18); CALCIUM 9.4 mg/dL (8.5-10.1); CHLORIDE 96 mmol/L (98-107); CO2 37 mmol/L (21-32); GLUCOSE,RANDOM 141 mg/dL (74-106); POTASSIUM 5.2 mmol/L (3.5-5.1); SGOT/AST 13 U/L (15-37); SGPT/ALT 37 U/L (13-61); SODIUM 136 mmol/L (136-145); TOT PROT 6.6 g/dl (6.4-8.2)
[2019-03-12] MEDS: PANTOPRAZOLE 40 MG TABLET (FP) PO SCH (09:38)
[2019-03-12] MEDS: LISINOPRIL 10 MG TABLET (FP) PO SCH (09:38)
[2019-03-12] MEDS: HYDROCHLOROTHIAZIDE 12.5 MG CAPSULE (FP) PO SCH (09:38)
[2019-03-12] MEDS: methylPREDNISolone NA SUCC 40 MG/1 ML VIAL IVPUSH SCH ×2 (09:38→21:51)
[2019-03-12] MEDS: POLYETHYLENE GLYCOL 3350 119 GM BTL PO SCH (09:42)
[2019-03-12] MEDS ORDERED: ALBUTEROL SO4 0.083% IH SOL 2.5 MG/3 ML VIAL.NEB. NEB PRN (10:19)
--- NOTE | 2019-03-12 10:19 | PN ---
Progress Note (short form) - Note Progress Note: PULMONARY States breathing is improving. No significant cough or wheezing. Vital Signs Period Temp Pulse Resp BP Sys/Saeed Pulse Ox Last 24 Hr 98 F-98.2 F 74-94 20-24 134-153/57-90 93-93 Gen: NAD at rest Heart: RRR Lung: decreased breath sounds at the bases, no wheezes Abd: soft, nontender Ext: no edema CBC, BMP 03/12/19 06:48 03/12/19 06:48 Active Medications Acetaminophen (Tylenol -) 650 mg PO Q6H PRN PRN Reason: FEVER Last Admin: 03/12/19 04:26 Dose: 650 mg Docusate Sodium (Colace -) 100 mg PO Q8H PRN PRN Reason: CONSTIPATION Heparin Sodium (Porcine) (Heparin -) 5,000 unit SQ TID [facility] Last Admin: 03/12/19 06:24 Dose: Not Given Hydrochlorothiazide (Hctz -) 12.5 mg PO DAILY [facility] Last Admin: 03/12/19 09:38 Dose: 12.5 mg Ibuprofen (Motrin -) 400 mg PO Q6H PRN PRN Reason: FEVER Last Admin: 03/11/19 06:45 Dose: 400 mg Insulin Aspart (Novolog Vial Sliding Scale -) 1 vial SQ [facility]; Protocol Last Admin: 03/12/19 06:26 Dose: Not Given Latanoprost (Xalatan 0.005% Eye Drops -) 1 drop OU HS [facility] Last Admin: 03/11/19 21:33 Dose: 1 drop Levothyroxine Sodium 112 mcg/ (Levothyroxine Sodium 25 mcg) 137 mcg PO DAILY@ 0700 [facility] Last Admin: 03/12/19 06:25 Dose: 137 mcg Lisinopril (Prinivil) 10 mg PO DAILY [facility] Last Admin: 03/12/19 09:38 Dose: 10 mg Metformin HCl (Glucophage -) 1,000 mg PO ACBK [facility] Last Admin: 03/12/19 06:24 Dose: 1,000 mg Methylprednisolone Sodium Succinate (Solu-Medrol -) 30 mg IVPUSH Q12H [facility] Last Admin: 03/12/19 09:38 Dose: 30 mg Nifedipine (Procardia Xl -) 60 mg PO DAILY@0600 [facility] Last Admin: 03/12/19 06:25 Dose: 60 mg Non-Formulary Medication (Brinzolamide/Brimonidine Tart [Simbrinza 1%-0.2% Eye Drops]) 8 ml OP DAILY [facility] Last Admin: 03/05/19 21:47 Dose: Not Given Pantoprazole Sodium (Protonix -) 40 mg PO DAILY [facility] Last Admin: 03/12/19 09:38 Dose: 40 mg Polyethylene Glycol (Miralax (For Daily Use) -) 17 gm PO DAILY [facility] Last Admin: 03/12/19 09:42 Dose: Not Given Senna (Senna -) 2 tab PO HS PRN PRN Reason: CONSTIPATION Sitagliptin Phosphate (Januvia -) 50 mg PO DAILY@0700 [facility] Last Admin: 03/12/19 06:25 Dose: 50 mg A/P Acute Hypoxic and Hypercapneic Respiratory Failure Acute Asthma Exacerbation HTN DM - can change steroids to PO prednisone 40mg daily and taper as outpt - inhaled bronchodilators - O2 to keep SpO2 >90% - glucose control while on systemic steroids - outpt PFTs - outpt f/u of chest imaging - DVT prophylaxis
--- NOTE | 2019-03-12 11:06 | PN ---
Progress Note (short form) - Note Progress Note: pt seen/ examined feels better breathing better still gets sob pulse ox drop to 80 s with walking Vital Signs Temp 97.8 F 03/12/19 10:00 Pulse 74 03/12/19 10:00 Resp 20 03/12/19 10:00 BP 128/63 03/12/19 10:00 Pulse Ox 93 L 03/11/19 21:00 Intake & Output 03/11/19 03/11/19 03/12/19 11:59 23:59 11:59 Intake Total 150 100 Balance 150 100 Intake: Oral 150 100 Other: Voiding Method Toilet Toilet Toilet # Unmeasured Voids Void 1 2 1 Bowel Movement No Active Medications Acetaminophen (Tylenol -) 650 mg PO Q6H PRN PRN Reason: FEVER Last Admin: 03/10/19 05:45 Dose: 650 mg Albuterol Sulfate (Ventolin 0.083% Nebulizer Soln -) 1 amp NEB Q6H PRN PRN Reason: SHORT OF BREATH/WHEEZING Albuterol/Ipratropium (Duoneb -) 1 amp NEB RQID [facility] Last Admin: 03/10/19 07:25 Dose: 1 amp Docusate Sodium (Colace -) 100 mg PO Q8H PRN PRN Reason: CONSTIPATION Heparin Sodium (Porcine) (Heparin -) 5,000 unit SQ TID [facility] Last Admin: 03/10/19 05:36 Dose: Not Given Hydrochlorothiazide (Hctz -) 12.5 mg PO DAILY [facility] Last Admin: 03/09/19 09:28 Dose: 12.5 mg Ibuprofen (Motrin -) 400 mg PO Q6H PRN PRN Reason: FEVER Insulin Aspart (Novolog Vial Sliding Scale -) 1 vial SQ ACHS [facility]; Protocol Last Admin: 03/10/19 06:30 Dose: 4 units Latanoprost (Xalatan 0.005% Eye Drops -) 1 drop OU HS [facility] Last Admin: 03/09/19 21:24 Dose: 1 drop Levothyroxine Sodium 112 mcg/ (Levothyroxine Sodium 25 mcg) 137 mcg PO DAILY@ 0700 [facility] Last Admin: 03/10/19 06:31 Dose: 137 mcg Lisinopril (Prinivil) 10 mg PO DAILY [facility] Last Admin: 03/09/19 09:28 Dose: 10 mg Metformin HCl (Glucophage -) 1,000 mg PO ACBK [facility] Last Admin: 03/10/19 06:30 Dose: 1,000 mg Methylprednisolone Sodium Succinate (Solu-Medrol -) 40 mg IVPUSH Q12H [facility] Last Admin: 03/09/19 21:24 Dose: 40 mg Nifedipine (Procardia Xl -) 60 mg PO DAILY@0600 [facility] Last Admin: 03/10/19 06:30 Dose: 60 mg Non-Formulary Medication (Brinzolamide/Brimonidine Tart [Simbrinza 1%-0.2% Eye Drops]) 8 ml OP DAILY [facility] Last Admin: 03/05/19 21:47 Dose: Not Given Pantoprazole Sodium (Protonix -) 40 mg PO DAILY [facility] Last Admin: 03/09/19 09:28 Dose: 40 mg Polyethylene Glycol (Miralax (For Daily Use) -) 17 gm PO DAILY [facility] Last Admin: 03/09/19 09:29 Dose: Not Given Senna (Senna -) 2 tab PO HS PRN PRN Reason: CONSTIPATION Sitagliptin Phosphate (Januvia -) 50 mg PO DAILY@0700 [facility] Last Admin: 03/10/19 06:30 Dose: 50 mg CBC, BMP 03/12/19 06:48 03/12/19 06:48 Physical Exam awake/ comfortable s1 s2 RRR Lungs B/L-- diminished Abd- soft, obese, NT no edema PLAN COPD exacerbation-- better ex smoker morbid obesity --on IV solumedrol-- taper Nebs q6h O2 Pulmonary following CT chest-- results noted-- needs to repeat in 3 months monitor blood sugars continue with meds monitor bp Motrin prn for back pain ambulate will follow f/u labs d/c planning --will need home oxygen Anticipate d/c tomorrow Problem List - Problems (1) Hypoxia Code(s): R09.02 - HYPOXEMIA (2) Obstructive lung disease Code(s): J44.9 - CHRONIC OBSTRUCTIVE PULMONARY DISEASE, UNSPECIFIED (3) COPD (chronic obstructive pulmonary disease) with emphysema Code(s): J43.9 - EMPHYSEMA, UNSPECIFIED (4) Diabetes 1.5, managed as type 2 Code(s): E13.9 - OTHER SPECIFIED DIABETES MELLITUS WITHOUT COMPLICATIONS
[2019-03-12] MEDS: ALBUTEROL SO4 2.5/IPRATROPIUM 0.5 INH SOL 3 ML VIAL.NEB. NEB SCH ×2 (13:42→20:17)
[2019-03-12] MEDS ORDERED: PT OWN MED DRAWER 7, Y5N ONE ×2 (18:38→21:44)
[2019-03-12] MEDS: LATANOPROST 0.005% OPHTH SOLN 2.5ML BOTTLE OU SCH (21:50)
[2019-03-13] MEDS ORDERED: LEVOTHYROXINE NA 112 MCG TABLET (FP) ONE (05:02)
[2019-03-13] MEDS ORDERED: LEVOTHYROXINE NA 25 MCG TABLET (FP) ONE (05:02)
[2019-03-13] MEDS: NIFEdipine E.R 60 MG TABLET (UD) PO SCH (05:11)
[2019-03-13] MEDS: HEPARIN NA (PORCINE) 5,000 UNITS/ML 1ML VIAL SQ SCH ×2 (05:12→13:11)
[2019-03-13 06:20] VITALS: TEMP 98.3
[2019-03-13] MEDS: PATIENT'S OWN MEDICATION (NON-FORMULARY) (Brinzolamide/Brimonidine Tart [Simbrinza 1%-0.2% OP SCH (06:23)
[2019-03-13] MEDS: metFORMIN HCL 500 MG TABLET (FP) PO SCH (06:27)
[2019-03-13] MEDS: sitaGLIPtin PHOSPHATE 50 MG TABLET PO SCH (06:27)
[2019-03-13] MEDS: LEVOTHYROXINE 112 MCG, LEVOTHYROXINE 25 MCG PO SCH (06:28)
[2019-03-13] MEDS: INSULIN SLIDING SCALE (NOVOLOG) 1 VIAL SQ SCH ×2 (06:29→11:16)
[2019-03-13] MEDS: ALBUTEROL SO4 2.5/IPRATROPIUM 0.5 INH SOL 3 ML VIAL.NEB. NEB SCH ×2 (07:55→13:47)
[2019-03-13 08:13] LABS: ANION GAP 5 MMOL/L (8-16); BLOOD UREA NITROGEN 38 mg/dL (7-18); CALCIUM 9.5 mg/dL (8.5-10.1); CHLORIDE 97 mmol/L (98-107); CO2 33 mmol/L (21-32); GLUCOSE,RANDOM 174 mg/dL (74-106); POTASSIUM 4.6 mmol/L (3.5-5.1); SODIUM 136 mmol/L (136-145)
[2019-03-13] MEDS: PANTOPRAZOLE 40 MG TABLET (FP) PO SCH (09:16)
[2019-03-13] MEDS: POLYETHYLENE GLYCOL 3350 119 GM BTL PO SCH (09:16)
[2019-03-13] MEDS: LISINOPRIL 10 MG TABLET (FP) PO SCH (09:16)
[2019-03-13] MEDS: HYDROCHLOROTHIAZIDE 12.5 MG CAPSULE (FP) PO SCH (09:17)
[2019-03-13] MEDS: methylPREDNISolone NA SUCC 40 MG/1 ML VIAL IVPUSH SCH (09:17)
[2019-03-13 09:45] VITALS: BP 134/72; PULSE 74
--- NOTE | 2019-03-13 10:43 | PN ---
Progress Note (short form) - Note Progress Note: PULMONARY States breathing is close to baseline. No significant cough or wheezing. Vital Signs Period Temp Pulse Resp BP Sys/Saeed Pulse Ox Last 24 Hr 98 F-98.5 F 74-83 20-20 134-163/72-85 97-98 Gen: NAD at rest Heart: RRR Lung: decreased breath sounds at the bases, no wheezes Abd: soft, nontender Ext: no edema CBC, BMP 03/12/19 06:48 03/13/19 06:45 Active Medications Acetaminophen (Tylenol -) 650 mg PO Q6H PRN PRN Reason: FEVER Last Admin: 03/12/19 17:04 Dose: 650 mg Albuterol Sulfate (Ventolin 0.083% Nebulizer Soln -) 1 amp NEB Q4H PRN PRN Reason: SHORT OF BREATH/WHEEZING Albuterol/Ipratropium (Duoneb -) 1 amp NEB RTID [facility] Last Admin: 03/13/19 07:55 Dose: 1 amp Docusate Sodium (Colace -) 100 mg PO Q8H PRN PRN Reason: CONSTIPATION Heparin Sodium (Porcine) (Heparin -) 5,000 unit SQ TID [facility] Last Admin: 03/13/19 05:12 Dose: Not Given Hydrochlorothiazide (Hctz -) 12.5 mg PO DAILY [facility] Last Admin: 03/13/19 09:17 Dose: 12.5 mg Ibuprofen (Motrin -) 400 mg PO Q6H PRN PRN Reason: FEVER Last Admin: 03/11/19 06:45 Dose: 400 mg Insulin Aspart (Novolog Vial Sliding Scale -) 1 vial SQ [facility]; Protocol Last Admin: 03/13/19 06:29 Dose: 2 units Latanoprost (Xalatan 0.005% Eye Drops -) 1 drop OU HS [facility] Last Admin: 03/12/19 21:50 Dose: 1 drop Levothyroxine Sodium 112 mcg/ (Levothyroxine Sodium 25 mcg) 137 mcg PO DAILY@ 0700 [facility] Last Admin: 03/13/19 06:28 Dose: 137 mcg Lisinopril (Prinivil) 10 mg PO DAILY [facility] Last Admin: 03/13/19 09:16 Dose: 10 mg Metformin HCl (Glucophage -) 1,000 mg PO ACBK [facility] Last Admin: 03/13/19 06:27 Dose: 1,000 mg Methylprednisolone Sodium Succinate (Solu-Medrol -) 30 mg IVPUSH Q12H [facility] Last Admin: 03/13/19 09:17 Dose: 30 mg Nifedipine (Procardia Xl -) 60 mg PO DAILY@0600 [facility] Last Admin: 03/13/19 05:11 Dose: 60 mg Pantoprazole Sodium (Protonix -) 40 mg PO DAILY [facility] Last Admin: 03/13/19 09:16 Dose: 40 mg Polyethylene Glycol (Miralax (For Daily Use) -) 17 gm PO DAILY [facility] Last Admin: 03/13/19 09:16 Dose: Not Given Senna (Senna -) 2 tab PO HS PRN PRN Reason: CONSTIPATION Sitagliptin Phosphate (Januvia -) 50 mg PO DAILY@07 [facility] Last Admin: 03/13/19 06:27 Dose: 50 mg A/P Acute Hypoxic and Hypercapneic Respiratory Failure Acute Asthma Exacerbation HTN DM - prednisone taper - inhaled bronchodilators - O2 to keep SpO2 >90%, will need home O2 - glucose control while on systemic steroids - outpt PFTs - outpt f/u of chest imaging - DVT prophylaxis
--- NOTE | 2019-03-13 13:43 | DS ---
Physical Examination Vital Signs: Vital Signs Temperature 98.3 F 03/13/19 09:43 Pulse Rate 74 03/13/19 09:43 Respiratory Rate 20 03/13/19 09:43 Blood Pressure 134/72 03/13/19 09:43 O2 Sat by Pulse Oximetry (%) 97 03/13/19 09:00 Constitutional: Yes: No Distress, Calm Cardiovascular: Yes: Regular Rate and Rhythm Respiratory: Yes: Diminished Gastrointestinal: Yes: Normal Bowel Sounds, Soft, Abdomen, Obese. No: Tenderness Edema: No Labs: CBC, BMP 03/12/19 06:48 03/13/19 06:45 Discharge Summary Reason For Visit: REACTIVE AIRWAY DISEASE/DYSPNEA/WHEEZING Current Active Problems Acute respiratory failure with hypoxia and hypercapnia (Acute) Asthmatic bronchitis (Acute) Cataract (Acute) Diabetes (Acute) Dyspnea (Acute) HTN (hypertension) (Acute) Hypothyroidism (Acute) Hypoxia (Acute) Obesity (Acute) Obstructive lung disease (Acute) Productive cough (Acute) Prophylactic measure (Acute) Reactive airway disease (Acute) Wheezing (Acute) Hospital Course: Admitted for COPD exacerbation Seen by Pulmonary placed on IV solumedrol and nebs Pt qualifies for O2 She will be getting O2 at home CT chest showed ground glass opacity in right middle lobe-- needs follow up ct chest in 3 months Stable for dc home on po prednisone Condition: Stable - Instructions Diet, Activity, Other Instructions: CT chest showed ground glass opacity in right middle lobe-- needs follow up ct chest in 3 months Referrals: Simon Maya MD, [Staff Physician] - Angy Cullen MD [Primary Care Provider] - 2 Weeks (CT chest showed ground glass opacity in right middle lobe-- needs follow up ct chest in 3 months) Disposition: HOME - Home Medications Comprehensive Discharge Medication List: Ambulatory Orders Brinzolamide/Brimonidine Tart [Simbrinza 1%-0.2% Eye Drops] 8 ml OP DAILY Dulaglutide [Trulicity] 1.5 mg SQ WEEKLY 03/05/19 Hydrochlorothiazide [Hctz -] 12.5 mg PO DAILY 03/05/19 Levothyroxine Sodium [Synthroid] 137 mcg PO DAILY 03/05/19 Lisinopril 10 mg PO DAILY 03/05/19 Nifedipine [Procardia Xl] 30 mg PO DAILY 03/05/19 Sitagliptin Phos/Metformin HCl [Janumet 50-1,000 mg Tablet] 1 each PO DAILY Travoprost [Travatan Z] 5 ml OP DAILY 03/05/19
== END 2019-03-13 14:11 | disposition home or self-care (01) | DRG 189 ==
LOC: JER 15:34 → JERBED 21:27 → J7W 03-06 14:25 → OBSVTOIN 03-07 10:20
PROVIDERS: ADMIT Internal Medicine; ATTEND Internal Medicine
PROC: 3E0F7GC Introduction of Other Therapeutic Substance into Respiratory Tract, Via Natural or Artificial Opening (ICD-10-PCS; principal; 2019-03-07)
DX: J96.01 Acute respiratory failure with hypoxia (principal); Z68.41 Body mass index [BMI] 40.0-44.9, adult; J44.1 Chronic obstructive pulmonary disease with (acute) exacerbation; J96.02 Acute respiratory failure with hypercapnia; E66.01 Morbid (severe) obesity due to excess calories; I10 Essential (primary) hypertension; E11.9 Type 2 diabetes mellitus without complications; Z79.84 Long term (current) use of oral hypoglycemic drugs; J06.9 Acute upper respiratory infection, unspecified; R49.0 Dysphonia; Z87.891 Personal history of nicotine dependence; I25.2 Old myocardial infarction; E89.0 Postprocedural hypothyroidism; I25.10 Atherosclerotic heart disease of native coronary artery without angina pectoris
CPT/HCPCS: 36415; 36600; 71045-TC-FY; 71250-TC; 80048; 80053; 82375; 82550; 82553; 82803; 82962; 83050; 83735; 83880; 84100; 84443; 84484; 85025; 85027; 85610; 87804; 93005; 93010; 94010; 94640; 94761; 99285-25; G0378; J0131; J1100

== ENCOUNTER 2019-11-16 15:12 | Inpatient (IN) | payer OTHER ==
[2019-11-16] MEDS ORDERED: ALBUTEROL SO4 2.5/IPRATROPIUM 0.5 INH SOL 3 ML VIAL.NEB. NEB ONE ×3 (15:22→15:47)
[2019-11-16] MEDS ORDERED: EPINEPHrine/PF 1 MG/1 ML (1:1,000) AMPULE ONE (15:48)
[2019-11-16] MEDS ORDERED: DEXAMETHASONE SOD PHOSPHATE 10 MG/1 ML VIAL ONE (15:48)
--- NOTE | 2019-11-16 15:58 | PDOC ---
History of Present Illness - General Chief Complaint: Shortness of Breath Stated Complaint: DIFFICULTY BREATHING Time Seen by Provider: 11/16/19 15:22 History Source: Patient Exam Limitations: No Limitations - History of Present Illness Initial Comments: 69 y/o F, pmh of HTN, DMII, hypothyroidism s/p thyroid resection, right breast cancer s/p radiation and lumpectomy, COPD, presents to the ED w/ SOB of 2 day duration that has worsened since onset. Pt was picked up by EMS, during which she was found to be desaturating to the low 70s and given Dounebs x2, dexamethasone and Epinephrine. As per pt, she has had sob for 1 week since her home renovation began, but symptoms worsened over last two days. she was admitted in February by Dr. Cullen for similar symptoms and was diagnosed at the time with COPD. Denies f/c/n/v/d/chest pain, abdominal pain. 11/16/19 15:59 11/16/19 16:01 Is this a multiple visit Asthma Patient?: Yes Associated Symptoms: reports: denies symptoms, shortness of breath. denies: chest pain, cough, diaphoresis, headaches, nausea/vomiting Past History - Past Medical History Allergies/Adverse Reactions: Allergies Allergy/AdvReac Type Severity Reaction Status Date / Time No Known Drug Allergies Allergy Verified 11/16/19 16:48 Home Medications: Ambulatory Orders Brinzolamide/Brimonidine Tart [Simbrinza 1%-0.2% Eye Drops] 8 ml OP DAILY Dulaglutide [Trulicity] 1.5 mg SQ WEEKLY 03/05/19 Levothyroxine Sodium [Synthroid] 137 mcg PO DAILY 03/05/19 Sitagliptin Phos/Metformin HCl [Janumet 50-1,000 mg Tablet] 1 each PO DAILY Travoprost [Travatan Z] 5 ml OP DAILY 03/05/19 Albuterol 0.083% Nebulizer Anayeli [Ventolin 0.083% Nebulizer Soln -] 1 neb NEB Q6H #60 vial 03/13/19 Nebulizer [Aeroneb Go Nebulizer] 1 each MC DAILY #1 each 03/13/19 Nifedipine ER [Procardia XL -] 60 mg PO DAILY@0600 #30 tab.er.24 03/13/19 Anemia: No Asthma: Yes Cancer: No Cardiac Disorders: No CVA: No COPD: Yes CHF: No Dementia: No Diabetes: Yes GI Disorders: No Disorders: No HTN: Yes Hypercholesterolemia: Yes Liver Disease: No Seizures: No Thyroid Disease: Yes - Surgical History Abdominal Surgery: No Appendectomy: No Cardiac Surgery: No Cholecystectomy: No Lung Surgery: No Neurologic Surgery: No Orthopedic Surgery: Yes (LEFT SHOULDER ARTHROSCOPY) - Immunization History Immunization Up to Date: Yes - Psycho Social/Smoking Cessation Hx Smoking History: Unknown if ever smoked Have you smoked in the past 12 months: No Number of Cigarettes Smoked Daily: 0 If you are a former smoker, when did you quit?: 1989 Cigars Per Day: 0 Information on smoking cessation initiated: No Hx Alcohol Use: No Drug/Substance Use Hx: No Substance Use Type: None Hx Substance Use Treatment: No Review of Systems - Review of Systems Able to Perform ROS?: Yes Is the patient limited Portuguese proficient: No Constitutional: Yes: Symptoms Reported, Weight Stable. No: Chills, Diaphoresis , Fever HEENTM: Yes: Symptoms Reported. No: Blurred Vision, Tearing Respiratory: Yes: Symptoms reported, Shortness of Breath, Wheezing. No: Cough, Productive cough Cardiac (ROS): Yes: Symptoms Reported. No: Chest Pain, Chest Tightness ABD/GI: Yes: Symptoms Reported. No: Constipated, Diarrhea, Nausea, Vomiting Neurological: Yes: Symptoms reported. No: Headache, Numbness All Other Systems: Reviewed and Negative *Physical Exam - Vital Signs Last Vital Signs Temp Pulse Resp BP Pulse Ox 98.9 F 98 H 26 H 194/87 H 75 L 11/16/19 15:23 11/16/19 15:23 11/16/19 15:23 11/16/19 15:23 11/16/19 15:23 - Physical Exam General Appearance: Yes: Nourished, Appropriately Dressed HEENT: positive: EOMI, HAYDER, Normal ENT Inspection, Pharynx Normal Neck: positive: Trachea midline, Normal Thyroid, Supple Respiratory/Chest: positive: Lungs Clear, Normal Breath Sounds, Labored Respiration, Rapid RR, Decreased Breath Sounds, Wheezing. negative: Crackles, Rhonchi Cardiovascular: positive: Regular Rhythm, Regular Rate, S1, S2. negative: Murmur, Gallop/S3, Gallop/S4 Vascular Pulses: Dorsalis-Pedis (R): 2+, Doralis-Pedis (L): 2+ Gastrointestinal/Abdominal: positive: Normal Bowel Sounds, Soft. negative: Guarding, Tenderness Neurologic: positive: Fully Oriented, Alert, Normal Mood/Affect ED Treatment Course - LABORATORY CBC & Chemistry Diagram: 11/16/19 15:54 11/16/19 15:54 - Medications Given in the ED: ED Medications Discontinued Medications Generic Name Dose Route Start Last Admin Trade Name Kalpesh PRN Reason Stop Dose Admin Albuterol/Ipratropium 2 amp 11/16/19 15:29 11/16/19 15:31 Duoneb - NEB 11/16/19 15:30 2 amp ONCE ONE Administration Medical Decision Making - Medical Decision Making 69 y/o F, pmh of HTN, DMII, hypothyroidism s/p thyroid resection, right breast cancer s/p radiation and lumpectomy, COPD, presents to the ED w/ SOB of 2 day duration that has worsened since onset #SOB 2/2 COPD exacerbation Pt on Bipap Dounebs given 2g Mag given CBC, CMP, Lactic acid, BCx, UCx, UA PT/INR Cardiac profile EKG CXR 11/16/19 16:06 11/16/19 16:09 11/16/19 16:09 Discharge - Discharge Information Problems reviewed: Yes Clinical Impression/Diagnosis: COPD exacerbation Condition: Stable - Admission Yes - Follow up/Referral Referrals: Angy Cullen MD [Primary Care Provider] - - Patient Discharge Instructions - Post Discharge Activity
[2019-11-16] MEDS ORDERED: MAGNESIUM SULF 50% (8.12 MEQ/2 ML-1 GM VIAL) IVPB ONE (16:08)
[2019-11-16 16:10] LABS: BASO % 0.8 % (0-2.0); EOS % 3.3 % (0-4.5); HEMATOCRIT 52.4 % (32.4-45.2); HEMOGLOBIN 16.1 GM/dL (10.7-15.3); LYMPH % 21.5 % (8-40); MCH 28.5 pg (25.7-33.7); MCHC 30.7 g/dl (32.0-36.0); MEAN CELL VOLUME 92.8 fl (80-96); MEAN PLT VOLUME 9.2 fl (7.5-11.1); NEUT % 64.4 % (42.8-82.8); PLATELET COUNT 269 K/MM3 (134-434); RBC 5.64 M/mm3 (3.60-5.2); RDW 16.7 % (11.6-15.6); WHITE BLOOD COUNT 7.9 K/mm3 (4.0-10.0)
[2019-11-16] MEDS ORDERED: MAGNESIUM 1GM/D5W - 2 GM/200 ML IVPB IVPB ONE (16:10)
--- NOTE | 2019-11-16 16:24 | PDOC ---
Attending Attestation - Resident Resident Name: Christopher Rizzo - ED Attending Attestation I have performed the following: I have examined & evaluated the patient, The case was reviewed & discussed with the resident, I agree w/resident's findings & plan, Exceptions are as noted - HPI HPI: 11/16/19 15:25 Ms. Boyer is a 69 yo F h/o DMII, HTN, hypothyroidism, CAD, COPD and R breast cancer s/p lumpectomy presents to ED for evaluation due to profound shortness of breath. Patient had admission to the hospital for pneumonia February 2019. At that time she was fine found to have a consolidation of the left lower lobe, after discharge she had a follow-up CT which was reportedly negative Patient states she has been ill over the past 2 days No fevers or chills She has noted shortness of breath, chest tightness and wheezing. Her symptoms was not relieved with OTC meds and she denies recent travel or sick contacts. She denies nausea/vomiting/diarrhea/dizziness, chest pain, but endorses decreased appetite and interrupted sleep due to persistent cough. Pt noted to be hypoxic upon EMS arrival She was given epinephrine IM, duo nebs, Decadron - Physicial Exam PE: 11/16/19 16:23 GENERAL: The patient is dyspneic, short of breath, tachypneic ENT: Ears normal, nares patent, oropharynx clear without exudates. Moist mucous membranes. NECK: Normal range of motion, supple LUNGS: Inspiratory and expiratory wheezes noted HEART: Tachycardic, regular rhythm, no murmurs appreciated ABDOMEN: Soft, nontender, normoactive bowel sounds. EXTREMITIES: Normal range of motion, no edema. NEUROLOGICAL: Cranial nerves II through XII grossly intact. Normal speech. No focal neurological deficits. SKIN: Warm, Dry, normal turgor, no rashes or lesions noted. - Medical Decision Making 11/16/19 16:24 69-year-old female presenting to the emergency department with a complaint of shortness of breath No fevers or chills Differential diagnosis includes but is not limited to: Pneumonia, bronchitis, asthma/COPD, fluid overloading, ACS We will do: Lab EKG Portable chest x-ray Consider CT chest Anticipate admission EKG: Normal sinus rhythm, rate of 99 bpm, right axis deviation, no ST elevation or depressions, T waves are upright
[2019-11-16 16:41] LABS: INR 1.08 (0.83-1.09); PROTHROMBIN TIME (PATIENT) 12.8 SEC (9.7-13.0)
[2019-11-16 16:44] LABS: ACTIVATED PTT 34.8 SECONDS (25.2-36.5)
[2019-11-16 16:50] LABS: ALBUMIN 3.4 g/dl (3.4-5.0); BILIRUBIN,TOTAL 0.5 mg/dL (0.2-1); BLOOD UREA NITROGEN 17.9 mg/dL (7-18); CALCIUM 9.3 mg/dL (8.5-10.1); CREATININE 0.9 mg/dL (0.55-1.3); POTASSIUM 4.1 mmol/L (3.5-5.1); TOT PROT 7.2 g/dl (6.4-8.2)
[2019-11-16] MEDS ORDERED: SODIUM CHLORIDE 0.9% 500 ML INFUS.BAG IV ONE (16:53)
[2019-11-16] MEDS ORDERED: LISINOPRIL 10 MG TABLET (FP) PO ONE (17:49)
[2019-11-16] MEDS ORDERED: NIFEdipine E.R 60 MG TABLET PO ONE (17:49)
[2019-11-16] MEDS ORDERED: NIFEdipine E.R. 30 MG TABLET ONE (17:55)
[2019-11-16] MEDS ORDERED: LISINOPRIL 5 MG TABLET (FP) ONE (17:55)
--- NOTE | 2019-11-16 20:22 | PN ---
Teaching Attending Note Name of Resident: Dio Bishop ATTENDING PHYSICIAN STATEMENT I saw and evaluated the patient. I reviewed the resident's note and discussed the case with the resident. I agree with the resident's findings and plan as documented. SUBJECTIVE: 69 y/o woman w/ pmh of HTN, Uncontrolled diabetes mellitus, NSTEMI hypothyroidism s/p thyroid resection, right breast cancer s/p radiation and lumpectomy, COPD, presents c/o SOB of 2 day duration. Picked up by EMS, im the field, desaturating to the low 70s and given Dounebs x2, dexamethasone and Epinephrine. Denied any chest pain. Was placed on BiPAP in the emergency room. OBJECTIVE: Last Vital Signs Temp Pulse Resp BP Pulse Ox 98.9 F 86 20 180/88 H 95 11/16/19 15:23 11/16/19 20:00 11/16/19 20:00 11/16/19 20:00 11/16/19 20:00 GENERAL: Well developed, well nourished. Mild respiratory distress, on BiPAP mask, awake and alert and answering questions. Appears nontoxic HEENT: Normocephalic, atraumatic. PERRLA, EOMI. No conjunctival pallor. Sclera are non- icteric. Moist mucous membranes. Oropharynx is clear. NECK: Supple. Full ROM. No JVD. Carotid pulses 2+ and symmetric, without bruits. No thyromegaly. No lymphadenopathy. CARDIOVASCULAR: Regular rate and rhythm. No murmurs, rubs, or gallops. Distal pulses are 2+ and symmetric. PULMONARY: No evidence of respiratory distress. Lungs clear to auscultation bilaterally. No wheezing, rales or rhonchi. ABDOMINAL: Soft. Non-tender. Non-distended. No rebound or guarding. No organomegaly. Normoactive bowel sounds. MUSCULOSKELETAL Normal range of motion at all joints. No bony deformities or tenderness. No CVA tenderness. EXTREMITIES: No cyanosis. No clubbing. No edema. No calf tenderness. SKIN: Warm and dry. Normal capillary refill. No rashes. No jaundice. NEUROLOGICAL: Alert, awake, PSYCHIATRIC: Cooperative. Good eye contact. Appropriate mood and affect. Abnormal Lab Results 11/16/19 11/16/19 11/16/19 15:54 15:54 15:54 RBC 5.64 H Hgb 16.1 H Hct 52.4 H MCHC 30.7 L RDW 16.7 H Carbon Dioxide 33 H Anion Gap 6 L Random Glucose 212 H Lactic Acid 2.4 H* Troponin I 0.14 H Imaging studies reviewed ASSESSMENT AND PLAN: 69-year-old woman with hypoxic respiratory failure secondary to COPD exacerbation found to be desaturating requiring BiPAP. Cannot rule out non- STEMI , was found to have elevated troponin. Several risk factors for CAD including uncontrolled diabetes mellitus, uncontrolled hypertension, smoking, radiation therapy for breast cancer. Admit to telemetry Patient refused antiplatelet therapy with aspirin, Plavix. Refused Lovenox. She said that she is undergoing laser treatment for her retina with her [employer] and is unable to take antiplatelet agents and blood thinners at this time. Explained to patient that she may be having NSTEMI and she understood risks. Trend troponin Transthoracic echo Sublingual nitroglycerin if chest pain Cardiology evaluation Cardiac monitoring #COPD exacerbation with hypoxic , Hypercapnic respiratory failure. UA showed CO2 retention respiratory acidosis pH 7.2. Duo nebs every 4 hours standing and PRN Will hold methylprednisolone temporarily because of severe hyperglycemia Requires maintenance inhalerSpiriva would be reasonable option Pulmonary consult an outpatient PFTs Azithromycin 500 mg statin and then 250 for 4 days Supplemental oxygen as needed If amount of CO2 retention on blood gas would treat with BiPAP Smoking cessation if persistent smoking #Erythrocytosisnoted to be chronic at least dating back to 2014. Suspect is likely secondary to chronic hypoxemia from underlying COPD #Uncontrolled diabetes mellitus NovoLog sliding scale, basal insulin, diabetic, low-sodium diet, A1c Uncontrolled severe hypertension Low-salt diet Continue home dose nifedipine #Hypothyroidism Continue home dose levothyroxine 137 mcg p.o. daily Send TSH #DVT prophylaxison therapeutic Lovenox dose
[2019-11-16] MEDS ORDERED: ALBUTEROL SO4 0.083% IH SOL 2.5 MG/3 ML VIAL.NEB. NEB PRN (21:46)
[2019-11-16] MEDS ORDERED: ENOXAPARIN NA (PORCINE) 100 MG/1 ML DISP.SYRIN SQ ONE (21:51)
[2019-11-16] MEDS ORDERED: CLOPIDOGREL BISULFATE 300 MG TABLET PO ONE (21:51)
[2019-11-16] MEDS ORDERED: AZITHROMYCIN IVPB 500 MG/250 ML BAG IVPB SCH (22:00)
[2019-11-16] MEDS ORDERED: ASPIRIN 325 MG ENTERIC COATED TABLET (FP) PO ONE (22:15)
[2019-11-16] MEDS ORDERED: CLOPIDOGREL BISULFATE 300 MG TABLET ONE (23:05)
[2019-11-16] MEDS ORDERED: ASPIRIN 325 MG ENTERIC COATED TABLET (FP) ONE (23:05)
[2019-11-16] MEDS ORDERED: ENOXAPARIN NA (PORCINE) 60 MG/0.6 ML DISP.SYRIN SQ ONE (23:06)
[2019-11-16] MEDS ORDERED: ENOXAPARIN NA (PORCINE) 30 MG/0.3 ML DISP.SYRIN SQ ONE (23:06)
[2019-11-16] MEDS ORDERED: AZITHROMYCIN IVPB 500 MG/250 ML BAG IVPB ONE (23:06)
--- NOTE | 2019-11-16 23:18 | HP ---
CHIEF COMPLAINT: SOB PCP: Dr. Angy Francis HISTORY OF PRESENT ILLNESS: 69 y/o/f with PMHx of HTN, DM, hypothyroidism s/p resection, right breast cancer in 1999 s/p radiation and lumpectomy who presented with worsening SOB for the last week. Patient states her kitchen is being remodeled and believes this worsened her COPD. She has not used her albuterol inhaler since February of last year because she has not needed it. She used it over the last few days with only minimal relief. She has had a productive cough for the last few days with white phlegm, no blood. She states her breathing feels better since she arrived to the ER and received treatment. She denies recent fever, CP, N/V/D, constipation, weakness, changes in vision, headache, dysuria, hematuria, rash, sweating. Per ER note, during transfer with EMS patient desatted to the 70s and was given Duonebs x2, Dexamethasone, and Epinephrine. She denies ever being intubated. Patient states she sleeps in a reclining position in her bed. ER course was notable for: (1) CXR - prominent central and hilar markings which could be suggestive of some congestion, no acute process seen. (2) Initial trop 0.14, Lactic 2.4 (3) EKG without signs of ischemia Recent Travel: none PAST MEDICAL HISTORY: HTN, DM, hypothyroidism s/p resection, right breast cancer in 1999 s/p radiation and lumpectomy PAST SURGICAL HISTORY: Lumpectomy for breast cancer Social History: Smoking: quit 35 yeras ago Alcohol: socially Drugs: denies illicit drug use ever Denies significant family history previously worked as an RN, now retired Allergies No Known Drug Allergies Allergy (Verified 11/16/19 16:48) HOME MEDICATIONS: Home Medications Medication Instructions Recorded Brinzolamide/Brimonidine Tart 8 ml OP DAILY 03/05/19 [Simbrinza 1%-0.2% Eye Drops] Dulaglutide [Trulicity] 1.5 mg SQ WEEKLY 03/05/19 Levothyroxine Sodium [Synthroid] 137 mcg PO DAILY 03/05/19 Sitagliptin Phos/Metformin HCl 1 each PO DAILY 03/05/19 [Janumet 50-1,000 mg Tablet] Travoprost [Travatan Z] 5 ml OP DAILY 03/05/19 Albuterol 0.083% Nebulizer Anayeli 1 neb NEB Q6H #60 vial 03/13/19 [Ventolin 0.083% Nebulizer Soln -] Nebulizer [Aeroneb Go Nebulizer] 1 each MC DAILY #1 each 03/13/19 Nifedipine ER [Procardia XL -] 60 mg PO DAILY@0600 #30 tab.er.24 03/13/19 REVIEW OF SYSTEMS As per HPI PHYSICAL EXAMINATION Vital Signs - 24 hr 11/16/19 11/16/19 11/16/19 15:23 15:35 16:50 Temperature 98.9 F Pulse Rate 98 H Pulse Rate [ Left Radial] Respiratory 26 H 20 Rate Blood Pressure 194/87 H Blood Pressure [Right Arm] O2 Sat by Pulse 75 L 75 L 97 Oximetry (%) 11/16/19 11/16/19 20:00 21:54 Temperature Pulse Rate Pulse Rate [ 86 86 Left Radial] Respiratory 20 22 H Rate Blood Pressure Blood Pressure 180/88 H 167/78 [Right Arm] O2 Sat by Pulse 95 93 L Oximetry (%) GENERAL: Awake, alert, and fully oriented, in no acute distress. HEAD: Normal with no signs of trauma. EYES: PERRL, EOMI, no ptosis, no scleral icterus EARS, NOSE, THROAT: oropharynx clear without exudates. dry mucous membranes. NECK: Normal range of motion, supple LUNGS: wheezing bilaterally R>L, diminished breath sounds HEART: RRR, no murmur noted ABDOMEN: Soft, nontender, not distended, normoactive bowel sounds, no guarding, no rebound, no masses MUSCULOSKELETAL: No bony deformities or tenderness. No CVA tenderness. EXTREMITIES: 2+ pulses, warm, well-perfused. No calf tenderness. 1+ non pitting edema bilateral lower extremities NEUROLOGICAL: Normal speech, gait not observed. sensation intact throughout. PSYCHIATRIC: Cooperative. Good eye contact. Appropriate mood and affect. SKIN: Warm, dry, normal turgor, no rashes or lesions noted, normal capillary refill. Laboratory Results - last 24 hr 11/16/19 11/16/19 11/16/19 15:54 15:54 15:54 WBC 7.9 RBC 5.64 H Hgb 16.1 H Hct 52.4 H MCV 92.8 MCH 28.5 MCHC 30.7 L RDW 16.7 H Plt Count 269 D MPV 9.2 Absolute Neuts (auto) 5.1 Neutrophils % 64.4 Lymphocytes % 21.5 Monocytes % 10.0 Eosinophils % 3.3 D Basophils % 0.8 Nucleated RBC % 0 PT with INR 12.80 INR 1.08 PTT (Actin FS) 34.8 VBG pH POC VBG pCO2 POC VBG pO2 VBG HCO3 VBG O2 Sat (Isabela) VBG Base Excess Sodium 140 Potassium 4.1 Chloride 100 Carbon Dioxide 33 H Anion Gap 6 L BUN 17.9 Creatinine 0.9 Est GFR (CKD-EPI)AfAm 74.56 Est GFR (CKD-EPI)NonAf 64.33 Random Glucose 212 H Lactic Acid Calcium 9.3 Magnesium 2.0 Total Bilirubin 0.5 AST 28 ALT 45 Alkaline Phosphatase 97 Creatine Kinase 118 Troponin I 0.14 H Total Protein 7.2 Albumin 3.4 11/16/19 11/16/19 15:54 15:54 WBC RBC Hgb Hct MCV MCH MCHC RDW Plt Count MPV Absolute Neuts (auto) Neutrophils % Lymphocytes % Monocytes % Eosinophils % Basophils % Nucleated RBC % PT with INR INR PTT (Actin FS) VBG pH Cancelled POC VBG pCO2 Cancelled POC VBG pO2 Cancelled VBG HCO3 Cancelled VBG O2 Sat (Isabela) Cancelled VBG Base Excess Cancelled Sodium Potassium Chloride Carbon Dioxide Anion Gap BUN Creatinine Est GFR (CKD-EPI)AfAm Est GFR (CKD-EPI)NonAf Random Glucose Lactic Acid 2.4 H* Calcium Magnesium Total Bilirubin AST ALT Alkaline Phosphatase Creatine Kinase Troponin I Total Protein Albumin ASSESSMENT/PLAN: 69 y/o/f with PMHx of HTN, DM, hypothyroidism s/p resection, right breast cancer in 1999 s/p radiation and lumpectomy who presented with worsening SOB for the last week. Admitted for COPD exacerbation. #COPD exacerbation - Duonebs RQID, Albuterl Q4hr PRN - CXR - prominent central and hilar markings which could present some degress of congestion, no acute process seen - Repeat CXR in AM - Azithromycin 500mg x1, then 250mg for 4 days (started 11/16) - Spiriva inhaler 2puffs daily - Solumedrol IV 40mg Q8 - ABG to assess for CO2 retention - can start BIPAP if retaining CO2 - Pulmonology consulted (Dr. Abdalla) - Maintain SpO2 - 88%-92% #?NSTEMI - elevated troponin at 0.14 with multiple risk factors - Initial Troponin at 0.14, trend - lactic acid at 2.4, trend - BNP ordered - patient states she cannot sleep laying flat, has non pitting edema of lower extremities, however denies history of CHF - Echo to evaluate cardiac function - ordered ASA 325mg, Plavix 300mg once, Lovenox 150mg - however patient refusing as she was told by her Opthalmologist (last saw her 3 weeks ago) that she cannot have blood thinners as she is having laser eye treatment and is at risk for bleeding in her eyes with blood thinners - Can give Sublingual Nitro if complaining of chest pain #Erythrocytosis likely 2/2 chronic hypoxemia 2/2 COPD - Hgb at 16.1 on admission - noted to be chronic since 2018 #DM - ISS - BGMs #HTN - Continue Nifedipine 60mg daily #Hypothyroidism - continue home Synthroid dose 137mg daily #FEN - no IVF - Sodium/Diabetic controlled diet - monitor and replete lytes as needed #Prophylaxis - ordered ASA 325mg, Lovenox 150mg, Plavix 300mg but patient refusing as above #Disposition - admitted to tele for ?NSTEMI Visit type - Emergency Visit Emergency Visit: Yes ED Registration Date: 11/16/19 Care time: The patient presented to the Emergency Department on the above date and was hospitalized for further evaluation of their emergent condition. - New Patient This patient is new to me today: Yes Date on this admission: 11/17/19 - Critical Care Critical Care patient: No ATTENDING PHYSICIAN STATEMENT I saw and evaluated the patient. I reviewed the resident's note and discussed the case with the resident. I agree with the resident's findings and plan as documented. SUBJECTIVE: OBJECTIVE: ASSESSMENT AND PLAN:
[2019-11-16 23:39] LABS: ARTERIAL BLD GAS O2 SATURATION 95.2 % (95-98); ARTERIAL BLOOD GAS BASE EXCESS -0.1 meq/l (-2-2); ARTERIAL BLOOD GAS PO2 87.1 mmHg (80-100); ARTERIAL BLOOD GAS pH 7.22 (7.35-7.45)
[2019-11-16 23:41] LABS: ARTERIAL BLOOD GAS PCO2 76.5 mmHg (35-45)
[2019-11-17] MEDS ORDERED: AZITHROMYCIN IVPB 500 MG/250 ML BAG IVPB ONE ×3 (00:32→23:34)
[2019-11-17] MEDS ORDERED: INSULIN REGULAR HUMAN 100 UNITS/ML *VIAL IVPUSH ONE (01:28)
[2019-11-17] MEDS ORDERED: SODIUM CHLORIDE 0.9% 500 ML INFUS.BAG IV ONE (01:36)
[2019-11-17] MEDS: INSULIN SLIDING SCALE (NOVOLOG) 1 VIAL SQ SCH ×5 (01:39→21:42)
[2019-11-17] MEDS ORDERED: methylPREDNISolone NA SUCC 40 MG/1 ML VIAL ONE (02:59)
[2019-11-17] MEDS: methylPREDNISolone NA SUCC 40 MG/1 ML VIAL IVPUSH SCH ×3 (03:11→17:40)
[2019-11-17 03:53] LABS: CREATININE 1.1 mg/dL (0.55-1.3); POTASSIUM 4.2 mmol/L (3.5-5.1)
[2019-11-17] MEDS ORDERED: INSULIN REGULAR HUMAN 100 UNITS/ML *VIAL SQ ONE (03:57)
[2019-11-17 06:02] LABS: BASO % 0.3 % (0-2.0); HEMATOCRIT 49.4 % (32.4-45.2); HEMOGLOBIN 15.3 GM/dL (10.7-15.3); LYMPH % 6.7 % (8-40); MCH 28.4 pg (25.7-33.7); MCHC 30.9 g/dl (32.0-36.0); MEAN PLT VOLUME 8.4 fl (7.5-11.1); MONO % 4.3 % (3.8-10.2); NEUT % 88.7 % (42.8-82.8); PLATELET COUNT 206 K/MM3 (134-434); RBC 5.37 M/mm3 (3.60-5.2); RDW 16.4 % (11.6-15.6); WHITE BLOOD COUNT 6.2 K/mm3 (4.0-10.0)
[2019-11-17 06:27] LABS: MAGNESIUM 2.4 mg/dL (1.8-2.4); PHOSPHOROUS 3.7 mg/dL (2.5-4.9)
[2019-11-17 06:55] VITALS: BMI 39.4
--- NOTE | 2019-11-17 08:47 | EKG ---
Test Reason : Blood Pressure : / mmHG Vent. Rate : 099 BPM Atrial Rate : 099 BPM P-R Int : 170 ms QRS Dur : 076 ms QT Int : 330 ms P-R-T Axes : 061 111 046 degrees QTc Int : 423 ms NORMAL SINUS RHYTHM RIGHT AXIS DEVIATION ANTERIOR INFARCT (CITED ON OR BEFORE 05-MAR-2019) ABNORMAL ECG WHEN COMPARED WITH ECG OF 05-MAR-2019 16:20, QRS AXIS SHIFTED RIGHT MINIMAL CRITERIA FOR INFERIOR INFARCT ARE NO LONGER PRESENT Confirmed by SARITHA STEWART, ERIKA ([id number]) on 11/17/2019 8:47:31 AM Referred By: Confirmed By:ERIKA MELARA MD
[2019-11-17] MEDS: ALBUTEROL SO4 2.5/IPRATROPIUM 0.5 INH SOL 3 ML VIAL.NEB. NEB SCH ×4 (08:51→21:15)
[2019-11-17 09:27] LABS: N-TERMINAL BNP 6140.8 pg/ml (5-125)
[2019-11-17] MEDS ORDERED: PT OWN MED DRAWER 7, Y5N ONE (09:27)
[2019-11-17] MEDS: PANTOPRAZOLE 40 MG TABLET PO SCH (09:58)
[2019-11-17] MEDS ORDERED: ENOXAPARIN NA (PORCINE) 40 MG/0.4 ML DISP.SYRIN SQ SCH (10:00)
[2019-11-17] MEDS: AZITHROMYCIN IVPB 250 MG in DEXTROSE 5%-WATER - 250 ML IVPB SCH (11:15)
[2019-11-17] MEDS: TIOTROPIUM BROMIDE 2.5 MCG (SPIRIVA) RESPIMAT INHALER IH SCH (11:45)
[2019-11-17] MEDS ORDERED: PATIENT'S OWN MEDICATION (NON-FORMULARY) (Levothyroxine Sodium [Synthroid] 137 MCG) PO SCH (11:45)
--- NOTE | 2019-11-17 11:48 | PN ---
Progress Note, Physician Chief Complaint: pt seen/ examined . Chart reviewed awake/ comfortable breathing better Denies cp. Feels better - Current Medication List Current Medications: Active Medications Albuterol Sulfate (Ventolin 0.083% Nebulizer Soln -) 1 amp NEB Q4H PRN PRN Reason: SHORT OF BREATH/WHEEZING Albuterol/Ipratropium (Duoneb -) 1 amp NEB RQID [facility] Last Admin: 11/17/19 08:51 Dose: 1 amp Azithromycin 250 mg/ Dextrose 250 mls @ 250 mls/hr IVPB DAILY [facility] Stop: 11/20/19 12:00 Last Admin: 11/17/19 11:15 Dose: 250 mls/hr Insulin Aspart (Novolog Vial Sliding Scale -) 1 vial SQ ACHS [facility]; Protocol Last Admin: 11/17/19 06:55 Dose: Not Given Insulin Detemir (Levemir Vial) 10 units SQ HS [facility] Methylprednisolone Sodium Succinate (Solu-Medrol -) 40 mg IVPUSH Q8H-IV [facility] Last Admin: 11/17/19 09:58 Dose: 40 mg Nifedipine (Procardia Xl -) 60 mg PO DAILY@0600 [facility] Non-Formulary Medication (Levothyroxine Sodium [Synthroid]) 137 mcg PO DAILY [facility] Non-Formulary Medication (Travoprost [Travatan Z]) 5 ml OP DAILY [facility] Pantoprazole Sodium (Protonix -) 40 mg PO DAILY [facility] Last Admin: 11/17/19 09:58 Dose: 40 mg Tiotropium [place] (Spiriva Respimat) 2 puff IH DAILY [facility] - Objective Vital Signs: Vital Signs Temperature 98.3 F 11/17/19 09:56 Pulse Rate 76 11/17/19 09:56 Respiratory Rate 20 11/17/19 09:56 Blood Pressure 136/61 11/17/19 09:56 O2 Sat by Pulse Oximetry (%) 93 L 11/17/19 09:00 Constitutional: Yes: No Distress, Obese Eyes: Yes: Conjunctiva Clear Neck: Yes: Supple Cardiovascular: Yes: Regular Rate and Rhythm Respiratory: Yes: Rhonchi Gastrointestinal: Yes: Abdomen, Obese Edema: No Neurological: Yes: Alert Psychiatric: Yes: Alert Labs: CBC, BMP 11/17/19 05:32 11/17/19 02:45 INR, PTT INR 1.08 (0.83-1.09) 11/16/19 15:54 - ....Imaging Chest X-ray: Report Reviewed EKG: Report Reviewed Problem List - Problems (1) COPD exacerbation Code(s): J44.1 - CHRONIC OBSTRUCTIVE PULMONARY DISEASE W (ACUTE) EXACERBATION (2) Diabetes Code(s): E11.9 - TYPE 2 DIABETES MELLITUS WITHOUT COMPLICATIONS (3) Hypothyroidism Code(s): E03.9 - HYPOTHYROIDISM, UNSPECIFIED (4) NSTEMI (non-ST elevated myocardial infarction) Code(s): I21.4 - NON-ST ELEVATION (NSTEMI) MYOCARDIAL INFARCTION (5) Retinopathy Code(s): H35.00 - UNSPECIFIED BACKGROUND RETINOPATHY Assessment/Plan Discussed copd exac +ve troponins with h/o cad- stent NSTMI Myla need Cardiac cath Uncontrolled diabetes-- Add basal Insulin Hypothyriodism-- restart Synthroid check tsh pt refusing to take asa/ plavix -- says advised not to do so-- getting injections in Eyes. I called Her Opthalmologist Dr. Durbin and left massage -- will discuss with her Cardiology to follow Continue other meds Will follow.
[2019-11-17] MEDS ORDERED: LEVOTHYROXINE NA 25 MCG TABLET (FP) ONE (12:04)
--- NOTE | 2019-11-17 12:07 | CON.PULM ---
Consult Consult Specialty:: PULMONARY Referred by:: GRECIA Reason for Consultation:: SOB - History of Present Illness Chief Complaint: SOB/COUGH History of Present Illness: 69 yo F h/o DMII, HTN, hypothyroidism, CAD, COPD and R breast cancer s/p lumpectomy presents to ED for evaluation due to profound shortness of breath. Patient had admission to the hospital for pneumonia February 2019. At that time she was fine found to have a consolidation of the left lower lobe, after discharge she had a follow-up CT which was reportedly negative Patient states she has been ill over the past 2 days No fevers or chills She has noted shortness of breath, chest tightness and wheezing. Her symptoms was not relieved with OTC meds and she denies recent travel or sick contacts. She denies nausea/vomiting/diarrhea/dizziness, chest pain, but endorses decreased appetite and interrupted sleep due to persistent cough. Pt noted to be hypoxic upon EMS arrival - History Source History Provided By: Patient, Medical Record Limitations to Obtaining History: Clinical Condition - Past Medical History SOCIAL SCIENCE MANAGER: No: Alzheimer's Cardio/Vascular: Yes: HTN. No: AFIB Pulmonary: Yes: COPD Hepatobiliary: No: Cirrhosis Renal/: No: Renal Failure Reproductive: Yes: Postmenopausal ...: No Heme/Onc: No: Anemia Endocrine: Yes: Diabetes Mellitus, Other (Enlarged thyroid ) - Alcohol/Substance Use Hx Alcohol Use: Yes (social use) History of Substance Use: reports: None - Smoking History Smoking history: Former smoker Have you smoked in the past 12 months: No Aproximately how many cigarettes per day: 10 If you are a former smoker, when did you quit?: 1989 - Social History ADL: Independent Occupation: Retired Nurse Place of : [facility] History of Recent Travel: No Home Medications - Allergies Allergies/Adverse Reactions: Allergies Allergy/AdvReac Type Severity Reaction Status Date / Time No Known Drug Allergies Allergy Verified 11/16/19 16:48 - Home Medications Home Medications: Ambulatory Orders Brinzolamide/Brimonidine Tart [Simbrinza 1%-0.2% Eye Drops] 8 ml OP DAILY Dulaglutide [Trulicity] 1.5 mg SQ WEEKLY 03/05/19 Levothyroxine Sodium [Synthroid] 137 mcg PO DAILY 03/05/19 Sitagliptin Phos/Metformin HCl [Janumet 50-1,000 mg Tablet] 1 each PO DAILY Travoprost [Travatan Z] 5 ml OP DAILY 03/05/19 Albuterol 0.083% Nebulizer Anayeli [Ventolin 0.083% Nebulizer Soln -] 1 neb NEB Q6H #60 vial 03/13/19 Nebulizer [Aeroneb Go Nebulizer] 1 each MC DAILY #1 each 03/13/19 Nifedipine ER [Procardia XL -] 60 mg PO DAILY@0600 #30 tab.er.24 03/13/19 Family Medical History Family History: Unremarkable Review of Systems - Review of Systems Constitutional: reports: Fever, Lethargy, Loss of Appetite HENT: denies: Difficult Swallowing Neck: denies: Decreased ROM Cardiovascular: reports: Shortness of Breath Respiratory: reports: Cough, Exercise Intolerance, SOB on Exertion, Wheezing. denies: Hemoptysis Gastrointestinal: denies: Abdominal Pain Genitourinary: denies: Burning Physical Exam Vital Sings: Vital Signs Temperature 98.3 F 11/17/19 09:56 Pulse Rate 76 11/17/19 09:56 Respiratory Rate 11/17/19 09:56 Blood Pressure 136/61 11/17/19 09:56 O2 Sat by Pulse Oximetry (%) 93 L 11/17/19 09:00 Constitutional: Yes: Anxious Eyes: Yes: EOM Intact HENT: Yes: Normocephalic Neck: Yes: Trachea Midline Cardiovascular: Yes: Regular Rate and Rhythm Respiratory: Yes: Diminished Gastrointestinal: Yes: Soft, Abdomen, Obese Renal/: Yes: WNL Breast(s): Yes: WNL Musculoskeletal: Yes: WNL Extremities: Yes: WNL Neurological: Yes: Oriented Labs: CBC, BMP 11/17/19 05:32 11/17/19 02:45 ABG Results ABG pH 7.22 (7.35-7.45) L 11/16/19 23:18 ABG pCO2 at Pt Temp 76.5 mmHg (35-45) H* 11/16/19 23:18 ABG pO2 at Pt Temp 87.1 mmHg (80-100) 11/16/19 23:18 ABG HCO3 30.1 mmol/L (22-27) H 11/16/19 23:18 ABG O2 Sat (Measured) 95.2 % (95-98) 11/16/19 23:18 ABG O2 Content 20.0 % vol 11/16/19 23:18 ABG Base Excess -0.1 meq/l (-2-2) 11/16/19 23:18 REST REVIEWED Imaging - Results Chest X-ray: Report Reviewed, Image Reviewed Cat Scan: Pending EKG: Report Reviewed, Image Reviewed Problem List - Problems (1) COPD exacerbation Code(s): J44.1 - CHRONIC OBSTRUCTIVE PULMONARY DISEASE W (ACUTE) EXACERBATION (2) Acute respiratory failure with hypoxia and hypercapnia Code(s): J96.01 - ACUTE RESPIRATORY FAILURE WITH HYPOXIA; J96.02 - ACUTE RESPIRATORY FAILURE WITH HYPERCAPNIA (3) Diabetes Code(s): E11.9 - TYPE 2 DIABETES MELLITUS WITHOUT COMPLICATIONS (4) Dyspnea Code(s): R06.00 - DYSPNEA, UNSPECIFIED Qualifiers: Dyspnea type: unspecified Qualified Code(s): R06.00 - Dyspnea, unspecified (5) HTN (hypertension) Code(s): I10 - ESSENTIAL (PRIMARY) HYPERTENSION (6) Hypothyroidism Code(s): E03.9 - HYPOTHYROIDISM, UNSPECIFIED (7) Obesity Code(s): E66.9 - OBESITY, UNSPECIFIED Assessment/Plan ACUTE ON CHRONIC HYPOXEMIC HYPERCAPNEIC RESP FAILURE COPD/R/O PNA IN VIEW OF H/O MALIGNANCY WILL ORDER CTA CHEST AGREE WITH ANTIBIOTICS OBTAIN INFLU SCREEN CONTINUE O2/NIPPV NEEDED BRONCHODILATORS/SHORT COURSE MEDROL ELEVATED TROP MAYBE DEMAND ISCHEMIA WOULD OBTAIN CARDIAC EVAL/ECHO Keshawn DANIELS MD
[2019-11-17] MEDS: LEVOTHYROXINE 112 MCG, LEVOTHYROXINE 25 MCG PO SCH (12:08)
--- NOTE | 2019-11-17 12:37 | CON.CARD ---
Consult Consult Specialty:: Cardiology Referred by:: Medicine Reason for Consultation:: elevated trop - History of Present Illness Chief Complaint: short of breath History of Present Illness: 69F h/o HTN, DM, hypothyroidism, breast cancer s/p radiation and lumpectomy p/w dyspnea for one week as well as cough. No prior cardiac history. No chest pain , palps, dizziness. 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 No: AFIB Pulmonary: Yes: COPD Hepatobiliary: No: Cirrhosis Renal/: No: Renal Failure ...: No Endocrine: Yes: Diabetes Mellitus, Other (Enlarged thyroid ) - Alcohol/Substance Use Hx Alcohol Use: Yes (social use) History of Substance Use: reports: None - Smoking History Smoking history: Former smoker Have you smoked in the past 12 months: No Aproximately how many cigarettes per day: 10 If you are a former smoker, when did you quit?: 1989 - Social History ADL: Independent Occupation: Retired Nurse History of Recent Travel: No Home Medications - Allergies Allergies/Adverse Reactions: Allergies Allergy/AdvReac Type Severity Reaction Status Date / Time No Known Drug Allergies Allergy Verified 11/16/19 16:48 - Home Medications Home Medications: Ambulatory Orders Brinzolamide/Brimonidine Tart [Simbrinza 1%-0.2% Eye Drops] 8 ml OP DAILY Dulaglutide [Trulicity] 1.5 mg SQ WEEKLY 03/05/19 Levothyroxine Sodium [Synthroid] 137 mcg PO DAILY 03/05/19 Sitagliptin Phos/Metformin HCl [Janumet 50-1,000 mg Tablet] 1 each PO DAILY Travoprost [Travatan Z] 5 ml OP DAILY 03/05/19 Albuterol 0.083% Nebulizer [place]ayeli [Ventolin 0.083% Nebulizer Soln -] 1 neb NEB Q6H #60 vial 03/13/19 Nebulizer [Aeroneb Go Nebulizer] 1 each MC DAILY #1 each 03/13/19 Nifedipine ER [Procardia XL -] 60 mg PO DAILY@0600 #30 tab.er.24 03/13/19 Family Medical History Family History: Unremarkable Review of Systems - Review of Systems Constitutional: reports: No Symptoms Eyes: reports: No Symptoms HENT: reports: No Symptoms Neck: reports: No Symptoms Cardiovascular: reports: No Symptoms Respiratory: reports: Cough, SOB Gastrointestinal: reports: No Symptoms Genitourinary: reports: No Symptoms Musculoskeletal: reports: No Symptoms Integumentary: reports: No Symptoms Neurological: reports: No Symptoms Endocrine: reports: No Symptoms Hematology/Lymphatic: reports: No Symptoms Psychiatric: reports: No Symptoms Vital Signs: Vital Signs Temperature 98.3 F 11/17/19 09:56 Pulse Rate 76 11/17/19 09:56 Respiratory Rate 11/17/19 09:56 Blood Pressure 136/61 11/17/19 09:56 O2 Sat by Pulse Oximetry (%) 93 L 11/17/19 09:00 Constitutional: Yes: Well Nourished, No Distress, Calm Eyes: Yes: Conjunctiva Clear, EOM Intact HENT: Yes: Atraumatic, Normocephalic Neck: Yes: Supple, Trachea Midline Respiratory: Yes: Regular, CTA Bilaterally Gastrointestinal: Yes: Normal Bowel Sounds, Soft Cardiovascular: Yes: Regular Rate and Rhythm JVD: No Heart Sounds: Yes: S1, S2 Musculoskeletal: No: Back Pain Extremities: No: Cold Edema: No Integumentary: No: Jaundice Neurological: Yes: Alert, Oriented Psychiatric: No: Agitated - Other Data Labs, Other Data: CBC, BMP 11/17/19 05:32 11/17/19 02:45 INR, PTT INR 1.08 (0.83-1.09) 11/16/19 15:54 Troponin, BNP 11/16/19 11/17/19 11/17/19 15:54 00:00 02:45 Troponin I 0.14 H Cancelled Cancelled B-Natriuretic Peptide Cancelled 11/17/19 05:32 Troponin I 0.81 H* B-Natriuretic Peptide 6140.8 H Troponin, BNP 11/16/19 11/17/19 11/17/19 15:54 00:00 02:45 Troponin I 0.14 H Cancelled Cancelled B-Natriuretic Peptide Cancelled 11/17/19 05:32 Troponin I 0.81 H* B-Natriuretic Peptide 6140.8 H Assessment/Plan EKG: sinus, nl intervals, no ischemic changes CXR: no acute process COPD exacerbation, shortness of breath - manage per pulm elevated trop - no ischemia on EKG, trop 0.14->0.8 - likely demand in setting of COPD exacerbation - elevated BNP as well however clinically appears euvolemic - cont trending trop to peak - check echo - pt undergoing treatments for retina and refusing antiplatelet agents and anticoagulants as per instructions from her financial services sales representative, at risk for bleeding - start statin, defer aspirin for now given above and clinical presentation more consistent with COPD exacerbation, less likely ACS DM - manage per primary HTN - cont home meds hypothyroidism - manage per primary
[2019-11-17] MEDS: ASPIRIN 81 MG CHEWABLE TABLETS PO SCH (12:52)
[2019-11-17] MEDS: ATORVASTATIN CA 80 MG TABLET (FP) PO SCH (21:39)
[2019-11-17] MEDS ORDERED: INSULIN (LEVEMIR) 100 UNITS/ML UNITS SQ SCH (22:00)
[2019-11-18] MEDS: methylPREDNISolone NA SUCC 40 MG/1 ML VIAL IVPUSH SCH ×3 (01:24→17:05)
[2019-11-18] MEDS ORDERED: LEVOTHYROXINE NA 112 MCG TABLET (FP) ONE (05:35)
[2019-11-18] MEDS ORDERED: LEVOTHYROXINE NA 25 MCG TABLET (FP) ONE (05:35)
[2019-11-18] MEDS: LEVOTHYROXINE 112 MCG, LEVOTHYROXINE 25 MCG PO SCH (06:08)
[2019-11-18] MEDS: NIFEdipine E.R 60 MG TABLET PO SCH (06:09)
[2019-11-18] MEDS: INSULIN SLIDING SCALE (NOVOLOG) 1 VIAL SQ SCH ×4 (06:11→21:33)
[2019-11-18] MEDS: ALBUTEROL SO4 2.5/IPRATROPIUM 0.5 INH SOL 3 ML VIAL.NEB. NEB SCH ×4 (08:14→21:10)
[2019-11-18] MEDS ORDERED: PT OWN MED DRAWER 7, Y5N ONE (10:56)
[2019-11-18] MEDS: ASPIRIN 81 MG CHEWABLE TABLETS PO SCH (10:58)
[2019-11-18] MEDS: AZITHROMYCIN IVPB 250 MG in DEXTROSE 5%-WATER - 250 ML IVPB SCH (10:58)
[2019-11-18] MEDS: PANTOPRAZOLE 40 MG TABLET PO SCH (10:58)
[2019-11-18] MEDS: TIOTROPIUM BROMIDE 2.5 MCG (SPIRIVA) RESPIMAT INHALER IH SCH (10:59)
[2019-11-18] MEDS: LATANOPROST 0.005% OPHTH SOLN 2.5ML BOTTLE OU SCH (10:59)
--- NOTE | 2019-11-18 11:09 | PN ---
Progress Note (short form) - Note Progress Note: PULMONARY SUBJECTIVE IMPROVEMENT OOB TO CHAIR CARDIO EVAL APPRECIATED NOT USING PAP VSS/AFEBRILE/M. OBESE ANICTERIC DISTANT B/L BREATH SOUNDS S1S2 OBESE DECREASED B/L LOWER EXTREMITY EDEMA LABS/MEDS/NOTES/IMAGES REVIEWED - Problems (1) COPD exacerbation Code(s): J44.1 - CHRONIC OBSTRUCTIVE PULMONARY DISEASE W (ACUTE) EXACERBATION (2) Acute respiratory failure with hypoxia and hypercapnia Code(s): J96.01 - ACUTE RESPIRATORY FAILURE WITH HYPOXIA; J96.02 - ACUTE RESPIRATORY FAILURE WITH HYPERCAPNIA (3) Diabetes Code(s): E11.9 - TYPE 2 DIABETES MELLITUS WITHOUT COMPLICATIONS (4) Dyspnea Code(s): R06.00 - DYSPNEA, UNSPECIFIED Qualifiers: Dyspnea type: unspecified Qualified Code(s): R06.00 - Dyspnea, unspecified (5) HTN (hypertension) Code(s): I10 - ESSENTIAL (PRIMARY) HYPERTENSION (6) Hypothyroidism Code(s): E03.9 - HYPOTHYROIDISM, UNSPECIFIED (7) Obesity Code(s): E66.9 - OBESITY, UNSPECIFIED Assessment/Plan ACUTE ON CHRONIC HYPOXEMIC HYPERCAPNEIC RESP FAILURE COPD/R/O PNA IN VIEW OF H/O MALIGNANCY HAVE ORDERED CTA CHEST STILL PENDING AGREE WITH ANTIBIOTICS INFLU SCREEN NEGATIVE CONTINUE O2/NIPPV NEEDED BRONCHODILATORS/SHORT COURSE MEDROL ELEVATED TROP MAYBE DEMAND ISCHEMIA R FRANCES STEWART Problem List - Problems (1) COPD exacerbation Code(s): J44.1 - CHRONIC OBSTRUCTIVE PULMONARY DISEASE W (ACUTE) EXACERBATION (2) Acute respiratory failure with hypoxia and hypercapnia Code(s): J96.01 - ACUTE RESPIRATORY FAILURE WITH HYPOXIA; J96.02 - ACUTE RESPIRATORY FAILURE WITH HYPERCAPNIA (3) Diabetes Code(s): E11.9 - TYPE 2 DIABETES MELLITUS WITHOUT COMPLICATIONS (4) Dyspnea Code(s): R06.00 - DYSPNEA, UNSPECIFIED Qualifiers: Dyspnea type: unspecified Qualified Code(s): R06.00 - Dyspnea, unspecified (5) HTN (hypertension) Code(s): I10 - ESSENTIAL (PRIMARY) HYPERTENSION (6) Hypothyroidism Code(s): E03.9 - HYPOTHYROIDISM, UNSPECIFIED (7) Obesity Code(s): E66.9 - OBESITY, UNSPECIFIED
[2019-11-18] MEDS ORDERED: INSULIN (LEVEMIR) 100 UNITS/ML UNITS SQ SCH (11:35)
--- NOTE | 2019-11-18 11:35 | PN ---
Progress Note, Physician History of Present Illness: patient seen and examined looks and feels better Decreased cough Afebrile denies chest pain Still dyspneic but better All follow-ups noted and appreciated - Current Medication List Current Medications: Active Medications Albuterol Sulfate (Ventolin 0.083% Nebulizer Soln -) 1 amp NEB Q4H PRN PRN Reason: SHORT OF BREATH/WHEEZING Albuterol/Ipratropium (Duoneb -) 1 amp NEB RQID [facility] Last Admin: 11/18/19 08:14 Dose: 1 amp Aspirin (Asa -) 81 mg PO DAILY [facility] Last Admin: 11/18/19 10:58 Dose: 81 mg Atorvastatin Calcium (Lipitor -) 80 mg PO [facility] Last Admin: 11/17/19 21:39 Dose: 80 mg Azithromycin 250 mg/ Dextrose 250 mls @ 250 mls/hr IVPB DAILY [facility] Stop: 11/20/19 12:00 Last Admin: 11/18/19 10:58 Dose: 250 mls/hr Insulin Aspart (Novolog Vial Sliding Scale -) 1 vial SQ [facility]; Protocol Last Admin: 11/18/19 11:11 Dose: 6 units Insulin Detemir (Levemir Vial) 10 units SQ [facility] Last Admin: 11/17/19 21:39 Dose: 10 units Latanoprost (Xalatan 0.005% Eye Drops -) 5 drop OU DAILY [facility] Last Admin: 11/18/19 10:59 Dose: 5 drop Levothyroxine Sodium 112 mcg/ (Levothyroxine Sodium 25 mcg) 137 mcg PO DAILY@ 0700 [facility] Last Admin: 11/18/19 06:08 Dose: 137 mcg Methylprednisolone Sodium Succinate (Solu-Medrol -) 40 mg IVPUSH Q8H-IV [facility] Last Admin: 11/18/19 10:58 Dose: 40 mg Nifedipine (Procardia Xl -) 60 mg PO DAILY@0600 [facility] Last Admin: 11/18/19 06:09 Dose: 60 mg Pantoprazole Sodium (Protonix -) 40 mg PO DAILY [facility] Last Admin: 11/18/19 10:58 Dose: 40 mg Tiotropium [place] (Spiriva Respimat) 2 puff IH DAILY [facility] Last Admin: 11/18/19 10:59 Dose: 2 puff - Objective Vital Signs: Vital Signs Temperature 98.3 F 11/18/19 08:34 Pulse Rate 74 01/12/20 08:34 Respiratory Rate 20 11/18/19 08:34 Blood Pressure 133/69 11/18/19 08:34 O2 Sat by Pulse Oximetry (%) 97 11/18/19 08:36 Constitutional: Yes: No Distress, Calm, Obese Eyes: Yes: Conjunctiva Clear Neck: Yes: Supple Cardiovascular: Yes: Regular Rate and Rhythm Respiratory: Yes: Poor Air Entry, Other (Distant) Gastrointestinal: Yes: Soft, Abdomen, Obese Edema: No Neurological: Yes: Alert Psychiatric: Yes: Alert Labs: CBC, BMP 11/17/19 05:32 11/17/19 02:45 INR, PTT INR 1.08 (0.83-1.09) 11/16/19 15:54 Problem List - Problems (1) COPD exacerbation Code(s): J44.1 - CHRONIC OBSTRUCTIVE PULMONARY DISEASE W (ACUTE) EXACERBATION (2) Diabetes Code(s): E11.9 - TYPE 2 DIABETES MELLITUS WITHOUT COMPLICATIONS (3) Hypothyroidism Code(s): E03.9 - HYPOTHYROIDISM, UNSPECIFIED (4) NSTEMI (non-ST elevated myocardial infarction) Code(s): I21.4 - NON-ST ELEVATION (NSTEMI) MYOCARDIAL INFARCTION (5) Retinopathy Code(s): H35.00 - UNSPECIFIED BACKGROUND RETINOPATHY Assessment/Plan copd exac +ve troponins with h/o cad- stent NSTMI---likely demand ischemia troponins trending down Statin added Check lipid profile Uncontrolled diabetes-- increase basal insulin Hypothyriodism-- restart Synthroid tsh---okay continue present care Continue other meds Will follow.
--- NOTE | 2019-11-18 11:51 | PN ---
Progress Note (short form) - Note Progress Note: s: no chest pain, palps, dizziness, dyspnea. feels better. Current Medications Albuterol Sulfate (Ventolin 0.083% Nebulizer Soln -) 1 amp NEB Q4H PRN PRN Reason: SHORT OF BREATH/WHEEZING Albuterol/Ipratropium (Duoneb -) 1 amp NEB RQID [facility] Last Admin: 11/18/19 08:14 Dose: 1 amp Aspirin (Asa -) 81 mg PO DAILY [facility] Last Admin: 11/18/19 10:58 Dose: 81 mg Atorvastatin Calcium (Lipitor -) 80 mg PO HS [facility] Last Admin: 11/17/19 21:39 Dose: 80 mg Azithromycin 250 mg/ Dextrose 250 mls @ 250 mls/hr IVPB DAILY [facility] Stop: 11/20/19 12:00 Last Admin: 11/18/19 10:58 Dose: 250 mls/hr Insulin Aspart (Novolog Vial Sliding Scale -) 1 vial SQ [facility]; Protocol Last Admin: 11/18/19 11:11 Dose: 6 units Insulin Detemir (Levemir Vial) [address] [facility] Latanoprost (Xalatan 0.005% Eye Drops -) 5 drop OU DAILY [facility] Last Admin: 11/18/19 10:59 Dose: 5 drop Levothyroxine Sodium 112 mcg/ (Levothyroxine Sodium 25 mcg) 137 mcg PO DAILY@ 0700 [facility] Last Admin: 11/18/19 06:08 Dose: 137 mcg Methylprednisolone Sodium Succinate (Solu-Medrol -) 40 mg IVPUSH Q8H-IV [facility] Last Admin: 11/18/19 10:58 Dose: 40 mg Nifedipine (Procardia Xl -) 60 mg PO DAILY@0600 [facility] Last Admin: 11/18/19 06:09 Dose: 60 mg Pantoprazole Sodium (Protonix -) 40 mg PO DAILY [facility] Last Admin: 11/18/19 10:58 Dose: 40 mg Tiotropium [place] (Spiriva Respimat) 2 puff IH DAILY [facility] Last Admin: 11/18/19 10:59 Dose: 2 puff Vital Signs Period Temp Pulse Resp BP Sys/Saeed Pulse Ox Last 24 Hr 98.0 F-98.4 F 74-88 16-20 121-159/61-83 94-97 Constitutional: Yes: Well Nourished, No Distress, Calm Eyes: Yes: Conjunctiva Clear, EOM Intact HENT: Yes: Atraumatic, Normocephalic Neck: Yes: Supple, Trachea Midline Respiratory: Yes: Regular, CTA Bilaterally Gastrointestinal: Yes: Normal Bowel Sounds, Soft Cardiovascular: Yes: Regular Rate and Rhythm JVD: No Heart Sounds: Yes: S1, S2 Musculoskeletal: No: Back Pain Extremities: No: Cold Edema: No Integumentary: No: Jaundice Neurological: Yes: Alert, Oriented Psychiatric: No: Agitated Assessment/Plan EKG: sinus, nl intervals, no ischemic changes CXR: no acute process COPD exacerbation, shortness of breath - manage per pulm elevated trop - no ischemia on EKG, trop 0.14->0.8->0.5 - likely demand in setting of COPD exacerbation - elevated BNP as well however clinically appears euvolemic - echo pending - per Dr. Mancia d/w compressed yeast supervisor Dr Valentino weiner for antiplatelet - started on aspirin 81 mg daily and continue statin, lipid panel pending - plan for ischemic eval with mibi when stable DM - manage per primary HTN - cont home meds hypothyroidism - manage per primary
[2019-11-18] MEDS ORDERED: ASPIRIN 325 MG TABLET PO ONE (12:46)
[2019-11-18] MEDS: ATORVASTATIN CA 80 MG TABLET (FP) PO SCH (21:32)
[2019-11-19] MEDS: methylPREDNISolone NA SUCC 40 MG/1 ML VIAL IVPUSH SCH ×3 (01:20→17:02)
[2019-11-19] MEDS ORDERED: LEVOTHYROXINE NA 25 MCG TABLET (FP) ONE (06:00)
[2019-11-19] MEDS ORDERED: LEVOTHYROXINE NA 112 MCG TABLET (FP) ONE (06:01)
[2019-11-19 06:20] LABS: CHOLESTEROL 226 mg/dL (50-200); HDL CHOLESTEROL 90 mg/dL (40-60); LDL CHOLESTEROL (ONLY SJRH) 110 mg/dL (5-100); TRIGLYCERIDES 73 mg/dL (0-150)
[2019-11-19] MEDS: LEVOTHYROXINE 112 MCG, LEVOTHYROXINE 25 MCG PO SCH (06:29)
[2019-11-19] MEDS: NIFEdipine E.R 60 MG TABLET PO SCH (06:29)
[2019-11-19] MEDS: INSULIN SLIDING SCALE (NOVOLOG) 1 VIAL SQ SCH ×4 (06:30→21:41)
[2019-11-19] MEDS: ALBUTEROL SO4 2.5/IPRATROPIUM 0.5 INH SOL 3 ML VIAL.NEB. NEB SCH ×4 (07:45→21:22)
--- NOTE | 2019-11-19 09:41 | PN ---
Progress Note, Physician Chief Complaint: sob History of Present Illness: breathing still short and very tight. a little better feet still swollen no cp, palpit - Current Medication List Current Medications: Active Medications Albuterol Sulfate (Ventolin 0.083% Nebulizer Soln -) 1 amp NEB Q4H PRN PRN Reason: SHORT OF BREATH/WHEEZING Albuterol/Ipratropium (Duoneb -) 1 amp NEB RQID [facility] Last Admin: 11/19/19 07:45 Dose: 1 amp Aspirin (Asa -) 81 mg PO DAILY [facility] Last Admin: 11/18/19 10:58 Dose: 81 mg Atorvastatin Calcium (Lipitor -) 80 mg PO HS [facility] Last Admin: 11/18/19 21:32 Dose: 80 mg Azithromycin 250 mg/ Dextrose 250 mls @ 250 mls/hr IVPB DAILY [facility] Stop: 11/20/19 12:00 Last Admin: 11/18/19 10:58 Dose: 250 mls/hr Insulin Aspart (Novolog Vial Sliding Scale -) 1 vial SQ [facility]; Protocol Last Admin: 11/19/19 06:30 Dose: 4 units Insulin Detemir (Levemir Vial) 15 units SQ [facility] Last Admin: 11/18/19 21:32 Dose: 15 units Latanoprost (Xalatan 0.005% Eye Drops -) 5 drop OU DAILY [facility] Last Admin: 11/18/19 10:59 Dose: 5 drop Levothyroxine Sodium 112 mcg/ (Levothyroxine Sodium 25 mcg) 137 mcg PO DAILY@ 0700 [facility] Last Admin: 11/19/19 06:29 Dose: 137 mcg Methylprednisolone Sodium Succinate (Solu-Medrol -) 40 mg IVPUSH Q8H-IV [facility] Last Admin: 11/19/19 01:20 Dose: 40 mg Nifedipine (Procardia Xl -) 60 mg PO DAILY@0600 [facility] Last Admin: 11/19/19 06:29 Dose: 60 mg Pantoprazole Sodium (Protonix -) 40 mg PO DAILY [facility] Last Admin: 11/18/19 10:58 Dose: 40 mg Tiotropium [place] (Spiriva Respimat) 2 puff IH DAILY [facility] Last Admin: 11/18/19 10:59 Dose: 2 puff - Objective Vital Signs: Vital Signs Temperature 98.4 F 11/19/19 06:00 Pulse Rate 83 11/19/19 06:00 Respiratory Rate 18 11/19/19 06:00 Blood Pressure 150/72 11/19/19 06:00 O2 Sat by Pulse Oximetry (%) 95 11/18/19 20:17 Constitutional: Yes: No Distress, Calm, Obese Cardiovascular: Yes: Regular Rate and Rhythm (decr intensity), S1, S2. No: Gallop, Murmur Respiratory: Yes: Regular (decr diffusely), Wheezes. No: Accessory Muscle Use, Rales Extremities: No: Cold Edema: Yes (1+ ankles) Neurological: Yes: Alert, Oriented Psychiatric: No: Agitated Labs: CBC, BMP 11/17/19 05:32 11/17/19 02:45 INR, PTT INR 1.08 (0.83-1.09) 11/16/19 15:54 Assessment/Plan EKG: sinus, nl intervals, no ischemic changes CXR: no acute process tele: NSR, artifact COPD exacerbation, shortness of breath - manage per pulm elevated trop - no ischemia on EKG, trop 0.14->0.8->0.5 - likely demand in setting of COPD exacerbation (Type II) - no angina sx's - elevated BNP, pedal edema present--lasix 40 IV x 1 - echo pending - per Dr. Mancia d/w forest scientist Dr Valentino weiner for antiplatelet - started on aspirin 81 mg daily and continue hi intensity statin (atorva 80) - plan for ischemic eval with mibi when stable DM - manage per primary HTN - cont home meds hypothyroidism - manage per primary
[2019-11-19] MEDS: ASPIRIN 81 MG CHEWABLE TABLETS PO SCH (10:38)
[2019-11-19] MEDS: AZITHROMYCIN IVPB 250 MG in DEXTROSE 5%-WATER - 250 ML IVPB SCH (10:38)
[2019-11-19] MEDS: PANTOPRAZOLE 40 MG TABLET PO SCH (10:38)
[2019-11-19] MEDS: TIOTROPIUM BROMIDE 2.5 MCG (SPIRIVA) RESPIMAT INHALER IH SCH (10:39)
[2019-11-19] MEDS: LATANOPROST 0.005% OPHTH SOLN 2.5ML BOTTLE OU SCH (10:39)
[2019-11-19] MEDS ORDERED: INSULIN (LEVEMIR) 100 UNITS/ML UNITS SQ SCH (11:32)
--- NOTE | 2019-11-19 11:32 | PN ---
Progress Note (short form) - Note Progress Note: pt seen/ examined still coughing and sob denies cp no distress Vital Signs Temp 97.7 F 11/19/19 09:00 Pulse 81 11/19/19 09:00 Resp 19 11/19/19 09:00 BP 147/95 11/19/19 09:00 Pulse Ox 97 11/19/19 09:00 Intake & Output 11/18/19 11/18/19 11/19/19 11:59 23:59 11:59 Intake Total 210 650 410 Balance 210 650 410 Intake: IV 10 10 SALINE LOCK 10 10 IVPB 250 Oral 200 400 400 Other: Voiding Method Toilet Toilet Toilet # Unmeasured Voids Void 1 1 1 Bowel Movement No Active Medications Albuterol Sulfate (Ventolin 0.083% Nebulizer Soln -) 1 amp NEB Q4H PRN PRN Reason: SHORT OF BREATH/WHEEZING Albuterol/Ipratropium (Duoneb -) 1 amp NEB RQID [facility] Last Admin: 11/19/19 11:20 Dose: 1 amp Aspirin (Asa -) 81 mg PO DAILY [facility] Last Admin: 11/19/19 10:38 Dose: 81 mg Atorvastatin Calcium (Lipitor -) 80 mg PO HS [facility] Last Admin: 11/18/19 21:32 Dose: 80 mg Furosemide (Lasix Injection -) 40 mg IVPUSH ONCE ONE Stop: 11/19/19 11:19 Azithromycin 250 mg/ Dextrose 250 mls @ 250 mls/hr IVPB DAILY [facility] Stop: 11/20/19 12:00 Last Admin: 11/19/19 10:38 Dose: 250 mls/hr Insulin Aspart (Novolog Vial Sliding Scale -) 1 vial SQ [facility]; Protocol Last Admin: 11/19/19 06:30 Dose: 4 units Insulin Detemir (Levemir Vial) 15 units SQ [facility] Last Admin: 11/18/19 21:32 Dose: 15 units Latanoprost (Xalatan 0.005% Eye Drops -) 5 drop OU DAILY [facility] Last Admin: 11/19/19 10:39 Dose: 5 drop Levothyroxine Sodium 112 mcg/ (Levothyroxine Sodium 25 mcg) 137 mcg PO DAILY@ 0700 [facility] Last Admin: 11/19/19 06:29 Dose: 137 mcg Methylprednisolone Sodium Succinate (Solu-Medrol -) 40 mg IVPUSH Q8H-IV [facility] Last Admin: 11/19/19 10:38 Dose: 40 mg Nifedipine (Procardia Xl -) 60 mg PO DAILY@0600 [facility] Last Admin: 11/19/19 06:29 Dose: 60 mg Pantoprazole Sodium (Protonix -) 40 mg PO DAILY [facility] Last Admin: 11/19/19 10:38 Dose: 40 mg Tiotropium [place] (Spiriva Respimat) 2 puff IH DAILY [facility] Last Admin: 11/19/19 10:39 Dose: 2 puff CBC, [facility] 11/17/19 05:32 11/17/19 02:45 ct chest=-Bibasilar Atelectasis Constitutional: Yes: No Distress, Calm, Obese Eyes: Yes: Conjunctiva Clear Neck: Yes: Supple Cardiovascular: Yes: Regular Rate and Rhythm Respiratory: Yes: Poor Air Entry, Other (Distant) Gastrointestinal: Yes: Soft, Abdomen, Obese Edema: No Neurological: Yes: Alert Psychiatric: Yes: Alert Labs: CBC, [facility] 11/17/19 05:32 11/17/19 02:45 INR, PTT INR 1.08 (0.83-1.09) 11/16/19 15:54 Problem List - Problems (1) COPD exacerbation Code(s): J44.1 - CHRONIC OBSTRUCTIVE PULMONARY DISEASE W (ACUTE) EXACERBATION (2) Diabetes Code(s): E11.9 - TYPE 2 DIABETES MELLITUS WITHOUT COMPLICATIONS (3) Hypothyroidism Code(s): E03.9 - HYPOTHYROIDISM, UNSPECIFIED (4) NSTEMI (non-ST elevated myocardial infarction) Code(s): I21.4 - NON-ST ELEVATION (NSTEMI) MYOCARDIAL INFARCTION (5) Retinopathy Code(s): H35.00 - UNSPECIFIED BACKGROUND RETINOPATHY Assessment/Plan copd exac +ve troponins with h/o cad- stent NSTMI-?--likely demand ischemia-- PEr Cardiology troponins trending down Statin added Check lipid profile Uncontrolled diabetes-- increased basal insulin Hypothyriodism-- restart Synthroid continue present care Continue other meds Will follow. Problem List - Problems (1) COPD exacerbation Code(s): J44.1 - CHRONIC OBSTRUCTIVE PULMONARY DISEASE W (ACUTE) EXACERBATION (2) Diabetes Code(s): E11.9 - TYPE 2 DIABETES MELLITUS WITHOUT COMPLICATIONS (3) Hypothyroidism Code(s): E03.9 - HYPOTHYROIDISM, UNSPECIFIED (4) NSTEMI (non-ST elevated myocardial infarction) Code(s): I21.4 - NON-ST ELEVATION (NSTEMI) MYOCARDIAL INFARCTION (5) Retinopathy Code(s): H35.00 - UNSPECIFIED BACKGROUND RETINOPATHY
[2019-11-19] MEDS ORDERED: FUROSEMIDE 40 MG/4 ML INJECTABLE VIAL IVPUSH ONE (12:16)
--- NOTE | 2019-11-19 12:22 | ECHO ---
Name: MELITA BUTLER Exam:Adult Echocardiogram Study Date: 11/19/2019 09:44 AM Age: 69 yrs Height: 66 in Weight: 330 lb BSA: 2.5 m2 MMode/2D Measurements & Calculations IVSd: 1.1 cm Ao root diam: 3.0 cm LVIDd: 4.2 cm LA dimension: 2.9 cm LVIDs: 2.9 cm LVPWd: 1.3 cm LVPWs: 1.8 cm EDV(Teich): 77.1 ml ESV(Teich): 33.2 ml LVOT diam: 1.9 cm RV S Eric: 15.9 cm/sec Doppler Measurements & Calculations MV E max eric: 96.7 cm/sec Ao V2 max: 209.7 cm/sec MV A max eric: 89.8 cm/sec Ao max P.6 mmHg MV E/A: 1.1 MV dec time: 0.15 sec MIKAYLA(V,D): 1.9 cm2 LV V1 max P.6 mmHg TR max eric: 270.1 cm/sec LV V1 max: 137.7 cm/sec TR max P.2 mmHg PA V2 max: 118.1 cm/sec Med Peak E' Eric: 7.0 cm/sec PA max P.6 mmHg Med E/e': 13.8 Lat Peak E' Eric: 6.4 cm/sec Lat E/e': 15.0 Procedure A complete two-dimensional transthoracic echocardiogram was performed (2D, M-mode, Doppler and color flow Doppler). Left Ventricle The left ventricle is normal in size. Left ventricular systolic function is normal. Ejection Fraction = 55- 60%. No regional wall motion abnormalities noted. Right Ventricle The right ventricle is normal size. The right ventricular systolic function is normal. Atria The left atrial size is normal. Right atrial size is normal. Mitral Valve The mitral valve is normal in structure and function. There is mild mitral regurgitation. Tricuspid Valve The tricuspid valve is normal in structure and function. There is mild tricuspid regurgitation. Pulmo nary artery systolic pressure is at least 37 mmHg if RA pressure is assumed 8 mmHg (dilated IVC). Aortic Valve There is mild aortic sclerosis.;. No aortic regurgitation is present. Pulmonic Valve The pulmonic valve is not well visualized. Great Vessels The aortic root is normal size. Pericardium/Pleura There is no pericardial effusion. Interpretation Summary The left ventricle is normal in size. Left ventricular systolic function is normal. No regional wall motion abnormalities noted. Ejection Fraction = 55-60%. The right ventricular systolic function is normal. The left atrial size is normal. Right atrial size is normal. There is mild mitral regurgitation. There is mild tricuspid regurgitation. Pulmonary artery systolic pressure is at least 37 mmHg if RA pressure is assumed 8 mmHg (dilated IVC) There is mild aortic sclerosis. There is no pericardial effusion. Kilo Ramirez MD 11/19/2019 12:21 PM
--- NOTE | 2019-11-19 13:44 | PN ---
Progress Note (short form) - Note Progress Note: PULMONARY Breathing slightly better but still some shortness of breath, cough, wheezing. Vital Signs Period Temp Pulse Resp BP Sys/Saeed Pulse Ox Last 24 Hr 97.6 F-98.4 F 76-87 18-19 126-158/67-95 95-97 Gen: NAD at rest Heart: RRR Lung: scattered rhonchi, wheezes Abd: soft, nontender Ext: + edema CBC, BMP 11/17/19 05:32 Active Medications Albuterol Sulfate (Ventolin 0.083% Nebulizer Soln -) 1 amp NEB Q4H PRN PRN Reason: SHORT OF BREATH/WHEEZING Albuterol/Ipratropium (Duoneb -) 1 amp NEB RQID [facility] Last Admin: 11/19/19 11:20 Dose: 1 amp Aspirin (Asa -) 81 mg PO DAILY [facility] Last Admin: 11/19/19 10:38 Dose: 81 mg Atorvastatin Calcium (Lipitor -) 80 mg PO HS [facility] Last Admin: 11/18/19 21:32 Dose: 80 mg Azithromycin 250 mg/ Dextrose 250 mls @ 250 mls/hr IVPB DAILY [facility] Stop: 11/20/19 12:00 Last Admin: 11/19/19 10:38 Dose: 250 mls/hr Insulin Aspart (Novolog Vial Sliding Scale -) 1 vial SQ [facility]; Protocol Last Admin: 11/19/19 11:57 Dose: 12 units Insulin Detemir (Levemir Vial) 15 units SQ BID@0700,2200 [facility] Latanoprost (Xalatan 0.005% Eye Drops -) 5 drop OU DAILY [facility] Last Admin: 11/19/19 10:39 Dose: 5 drop Levothyroxine Sodium 112 mcg/ (Levothyroxine Sodium 25 mcg) 137 mcg PO DAILY@ 0700 [facility] Last Admin: 11/19/19 06:29 Dose: 137 mcg Methylprednisolone Sodium Succinate (Solu-Medrol -) 40 mg IVPUSH Q8H-IV [facility] Last Admin: 11/19/19 10:38 Dose: 40 mg Nifedipine (Procardia Xl -) 60 mg PO DAILY@0600 [facility] Last Admin: 11/19/19 06:29 Dose: 60 mg Pantoprazole Sodium (Protonix -) 40 mg PO DAILY [facility] Last Admin: 11/19/19 10:38 Dose: 40 mg Tiotropium [place] (Spiriva Respimat) 2 puff IH DAILY [facility] Last Admin: 11/19/19 10:39 Dose: 2 puff A/P Acute COPD Exacerbation +Troponins likely Demand Ischemia HTN DM Hyperlipidemia Hypothyroidism - continue medrol at current dose - inhaled bronchodilators - O2 to keep SpO2 >90% - DVT prophylaxis
[2019-11-19 16:19] LABS: CREATININE 1.5 mg/dl (0.55-1.3); POTASSIUM 4.9 mmol/L (3.5-5.1)
[2019-11-19 16:20] LABS: CALCIUM 9.6 mg/dl (8.5-10)
[2019-11-19] MEDS: INSULIN (LEVEMIR) 100 UNITS/ML UNITS SQ SCH (21:40)
[2019-11-19] MEDS: ATORVASTATIN CA 80 MG TABLET (FP) PO SCH (21:40)
[2019-11-20] MEDS: methylPREDNISolone NA SUCC 40 MG/1 ML VIAL IVPUSH SCH ×3 (02:05→17:02)
[2019-11-20] MEDS ORDERED: LEVOTHYROXINE NA 25 MCG TABLET (FP) ONE (06:01)
[2019-11-20] MEDS ORDERED: LEVOTHYROXINE NA 112 MCG TABLET (FP) ONE (06:01)
[2019-11-20] MEDS: LEVOTHYROXINE 112 MCG, LEVOTHYROXINE 25 MCG PO SCH (06:05)
[2019-11-20] MEDS: NIFEdipine E.R 60 MG TABLET PO SCH (06:05)
[2019-11-20] MEDS: INSULIN SLIDING SCALE (NOVOLOG) 1 VIAL SQ SCH ×4 (06:47→21:17)
[2019-11-20] MEDS: INSULIN (LEVEMIR) 100 UNITS/ML UNITS SQ SCH ×2 (06:48→21:17)
[2019-11-20 08:00] LABS: BLOOD UREA NITROGEN 36.2 mg/dL (7-18); CALCIUM 9.6 mg/dL (8.5-10.1); CREATININE 1.4 mg/dL (0.55-1.3); POTASSIUM 4.6 mmol/L (3.5-5.1)
[2019-11-20] MEDS: ALBUTEROL SO4 2.5/IPRATROPIUM 0.5 INH SOL 3 ML VIAL.NEB. NEB SCH ×4 (09:20→20:19)
[2019-11-20] MEDS: PANTOPRAZOLE 40 MG TABLET PO SCH (10:20)
[2019-11-20] MEDS: ASPIRIN 81 MG CHEWABLE TABLETS PO SCH (10:20)
[2019-11-20] MEDS: LATANOPROST 0.005% OPHTH SOLN 2.5ML BOTTLE OU SCH (10:21)
[2019-11-20] MEDS: TIOTROPIUM BROMIDE 2.5 MCG (SPIRIVA) RESPIMAT INHALER IH SCH (10:21)
[2019-11-20] MEDS: AZITHROMYCIN IVPB 250 MG in DEXTROSE 5%-WATER - 250 ML IVPB SCH (10:21)
--- NOTE | 2019-11-20 12:42 | PN ---
Progress Note (short form) - Note Progress Note: PULMONARY States breathing better today. Less cough and wheezing. Vital Signs Period Temp Pulse Resp BP Sys/Saeed Pulse Ox Last 24 Hr 97.7 F-98.6 F 80-98 18-20 141-169/54-96 77-94 Gen: NAD at rest Heart: RRR Lung: scattered rhonchi, wheezes Abd: soft, nontender Ext: + edema CBC, BMP 11/17/19 05:32 11/20/19 05:43 Active Medications Albuterol Sulfate (Ventolin 0.083% Nebulizer Soln -) 1 amp NEB Q4H PRN PRN Reason: SHORT OF BREATH/WHEEZING Albuterol/Ipratropium (Duoneb -) 1 amp NEB RQID [facility] Last Admin: 11/20/19 09:20 Dose: 1 amp Aspirin (Asa -) 81 mg PO DAILY [facility] Last Admin: 11/20/19 10:20 Dose: 81 mg Atorvastatin Calcium (Lipitor -) 80 mg PO HS [facility] Last Admin: 11/19/19 21:40 Dose: 80 mg Insulin Aspart (Novolog Vial Sliding Scale -) 1 vial SQ [facility]; Protocol Last Admin: 11/20/19 11:54 Dose: 4 units Insulin Detemir (Levemir Vial) 15 units SQ BID@0700,2200 [facility] Last Admin: 11/20/19 06:48 Dose: 15 units Latanoprost (Xalatan 0.005% Eye Drops -) 5 drop OU DAILY [facility] Last Admin: 11/20/19 10:21 Dose: 5 drop Levothyroxine Sodium 112 mcg/ (Levothyroxine Sodium 25 mcg) 137 mcg PO DAILY@ 0700 [facility] Last Admin: 11/20/19 06:05 Dose: 137 mcg Methylprednisolone Sodium Succinate (Solu-Medrol -) 40 mg IVPUSH Q8H-IV [facility] Last Admin: 11/20/19 10:20 Dose: 40 mg Nifedipine (Procardia Xl -) 60 mg PO DAILY@0600 [facility] Last Admin: 11/20/19 06:05 Dose: 60 mg Pantoprazole Sodium (Protonix -) 40 mg PO DAILY [facility] Last Admin: 11/20/19 10:20 Dose: 40 mg Tiotropium [place] (Spiriva Respimat) 2 puff IH DAILY [facility] Last Admin: 11/20/19 10:21 Dose: 2 puff A/P Acute COPD Exacerbation +Troponins likely Demand Ischemia HTN DM Hyperlipidemia Hypothyroidism - continue medrol at current dose, likely can taper in AM - inhaled bronchodilators - O2 to keep SpO2 >90% - DVT prophylaxis - outpt PFTs
--- NOTE | 2019-11-20 12:51 | PN ---
Progress Note (short form) - Note Progress Note: Events noted Decreased SOB Cough mild Vital Signs - 24 hr 11/19/19 11/19/19 11/19/19 13:50 17:00 20:38 Temperature 97.8 F 97.7 F Pulse Rate 87 85 Respiratory 18 18 Rate Blood Pressure 149/54 L 161/83 O2 Sat by Pulse 77 L Oximetry (%) 11/19/19 11/20/19 11/20/19 21:00 02:00 06:00 Temperature 98.1 F 98.1 F 98.5 F Pulse Rate 98 H 80 87 Respiratory 20 18 18 Rate Blood Pressure 169/90 146/72 159/96 O2 Sat by Pulse Oximetry (%) 11/20/19 11/20/19 09:00 10:05 Temperature 98.6 F Pulse Rate 84 Respiratory 20 Rate Blood Pressure 141/82 O2 Sat by Pulse 94 L Oximetry (%) Current Medications Generic Name Dose Route Start Last Admin Trade Name Freq PRN Reason Stop Dose Admin Albuterol Sulfate 1 amp 11/16/19 21:46 Ventolin 0.083% Nebulizer Soln - NEB Q4H PRN SHORT OF BREATH/WHEEZING Albuterol/Ipratropium 1 amp 11/17/19 08:00 11/20/19 13:07 Duoneb - NEB 1 amp RQID [facility] Administration Aspirin 81 mg 11/17/19 13:00 11/20/19 10:20 Asa - PO 81 mg DAILY [facility] Administration Atorvastatin Calcium 80 mg 11/17/19 22:00 11/19/19 21:40 Lipitor - PO 80 mg HS [facility] Administration Insulin Aspart 1 vial 11/16/19 22:00 11/20/19 11:54 Novolog Vial Sliding Scale - SQ 4 units ACHS [facility] Administration Protocol Insulin Detemir 15 units 11/19/19 22:00 11/20/19 06:48 Levemir Vial SQ 15 units BID@0700,2200 [facility] Administration Latanoprost 5 drop 11/18/19 10:00 11/20/19 10:21 Xalatan 0.005% Eye Drops - OU 5 drop DAILY [facility] Administration Levothyroxine Sodium 112 mcg/ 137 mcg 11/17/19 12:00 11/20/19 06:05 Levothyroxine Sodium 25 mcg PO 137 mcg DAILY@0700 [facility] Administration Methylprednisolone Sodium Succinate 40 mg 11/17/19 02:00 11/20/19 10:20 Solu-Medrol - IVPUSH 40 mg Q8H-IV [facility] Administration Nifedipine 60 mg 11/18/19 06:00 11/20/19 06:05 Procardia Xl - PO 60 mg DAILY@0600 [facility] Administration Pantoprazole Sodium 40 mg 11/17/19 10:00 11/20/19 10:20 Protonix - PO 40 mg DAILY [facility] Administration Tiotropium [place] 2 puff 11/17/19 10:00 11/20/19 10:21 Spiriva Respimat IH 2 puff DAILY [facility] Administration Laboratory Results - last 24 hr 11/19/19 11/19/19 11/19/19 05:05 05:05 05:05 Sodium Cancelled Cancelled 139 Potassium Cancelled Cancelled 4.9 Chloride Cancelled Cancelled 102 Carbon Dioxide Cancelled Cancelled 30 Anion Gap Cancelled Cancelled 7 L BUN Cancelled Cancelled 37.0 H Creatinine Cancelled Cancelled 1.5 H Est GFR (CKD-EPI)AfAm Cancelled Cancelled 40.20 Est GFR (CKD-EPI)NonAf Cancelled Cancelled 34.69 POC Glucometer Random Glucose Cancelled Cancelled 301 H Calcium Cancelled Cancelled 9.6 Triglycerides 73 Cholesterol 226 H Total LDL Cholesterol 110 H HDL Cholesterol 90 H 11/19/19 11/19/19 11/20/19 17:01 21:39 05:43 Sodium 139 Potassium 4.6 Chloride 98 Carbon Dioxide 35 H Anion Gap 5 L BUN 36.2 H Creatinine 1.4 H Est GFR (CKD-EPI)AfAm 43.70 Est GFR (CKD-EPI)NonAf 37.71 POC Glucometer 320 330 Random Glucose 217 H Calcium 9.6 Triglycerides Cholesterol Total LDL Cholesterol HDL Cholesterol 11/20/19 11/20/19 06:03 11:53 Sodium Potassium Chloride Carbon Dioxide Anion Gap BUN Creatinine Est GFR (CKD-EPI)AfAm Est GFR (CKD-EPI)NonAf POC Glucometer 217 268 Random Glucose Calcium Triglycerides Cholesterol Total LDL Cholesterol HDL Cholesterol S1 S2 RRR Lungs decreased breath sounds Ronchi+ Abd- soft, obese edema+ A/P COPD exacerbation -- Solumedrol -- Nebs -- O2 -- not using BIPAP DM -- increase Levemir - sugars elevated due to Solumedrol Hypothyroidism -- continue with Synthroid Problem List - Problems (1) COPD exacerbation Code(s): J44.1 - CHRONIC OBSTRUCTIVE PULMONARY DISEASE W (ACUTE) EXACERBATION (2) Acute respiratory failure with hypoxia and hypercapnia Code(s): J96.01 - ACUTE RESPIRATORY FAILURE WITH HYPOXIA; J96.02 - ACUTE RESPIRATORY FAILURE WITH HYPERCAPNIA (3) Diabetes Code(s): E11.9 - TYPE 2 DIABETES MELLITUS WITHOUT COMPLICATIONS (4) HTN (hypertension) Code(s): I10 - ESSENTIAL (PRIMARY) HYPERTENSION (5) Hypothyroidism Code(s): E03.9 - HYPOTHYROIDISM, UNSPECIFIED
--- NOTE | 2019-11-20 14:56 | PN ---
Progress Note, Physician Chief Complaint: sitting in chair No CP Feeling better TELE: NSR, rare single PVCs, episode PSVT 140s self limited. - Current Medication List Current Medications: Active Medications Albuterol Sulfate (Ventolin 0.083% Nebulizer Soln -) 1 amp NEB Q4H PRN PRN Reason: SHORT OF BREATH/WHEEZING Albuterol/Ipratropium (Duoneb -) 1 amp NEB RQID [facility] Last Admin: 11/20/19 13:07 Dose: 1 amp Aspirin (Asa -) 81 mg PO DAILY [facility] Last Admin: 11/20/19 10:20 Dose: 81 mg Atorvastatin Calcium (Lipitor -) 80 mg PO HS [facility] Last Admin: 11/19/19 21:40 Dose: 80 mg Insulin Aspart (Novolog Vial Sliding Scale -) 1 vial SQ [facility]; Protocol Last Admin: 11/20/19 11:54 Dose: 4 units Insulin Detemir (Levemir Vial) 18 units SQ BID@0700,2200 [facility] Latanoprost (Xalatan 0.005% Eye Drops -) 5 drop OU DAILY [facility] Last Admin: 11/20/19 10:21 Dose: 5 drop Levothyroxine Sodium 112 mcg/ (Levothyroxine Sodium 25 mcg) 137 mcg PO DAILY@ 0700 [facility] Last Admin: 11/20/19 06:05 Dose: 137 mcg Methylprednisolone Sodium Succinate (Solu-Medrol -) 40 mg IVPUSH Q8H-IV [facility] Last Admin: 11/20/19 10:20 Dose: 40 mg Nifedipine (Procardia Xl -) 60 mg PO DAILY@0600 [facility] Last Admin: 11/20/19 06:05 Dose: 60 mg Pantoprazole Sodium (Protonix -) 40 mg PO DAILY [facility] Last Admin: 11/20/19 10:20 Dose: 40 mg Tiotropium [place] (Spiriva Respimat) 2 puff IH DAILY [facility] Last Admin: 11/20/19 10:21 Dose: 2 puff - Objective Vital Signs: Vital Signs Temperature 97.9 F 11/20/19 14:00 Pulse Rate 86 11/20/19 14:00 Respiratory Rate 18 11/20/19 14:00 Blood Pressure 163/80 11/20/19 14:00 O2 Sat by Pulse Oximetry (%) 94 L 11/20/19 09:00 Constitutional: Yes: No Distress Cardiovascular: Yes: Regular Rate and Rhythm Respiratory: Yes: Other (b/l rhonci and mild expiratory wheezing) Gastrointestinal: Yes: Soft Edema: Yes Edema: LLE: 2+, RLE: 2+ Neurological: Yes: Alert, Oriented Labs: CBC, BMP 11/17/19 05:32 11/20/19 05:43 INR, PTT INR 1.08 (0.83-1.09) 11/16/19 15:54 - ....Imaging EKG: Image Reviewed Assessment/Plan Assessment/Plan EKG: sinus, nl intervals, no ischemic changes CXR: no acute process tele: NSR, artifact COPD exacerbation, shortness of breath" - manage per pulm elevated trop, likely due to mild acute on chronic diastolic CHF: - no ischemia on EKG, trop 0.14->0.8->0.5 - likely demand in setting of COPD exacerbation (Type II) - no angina sx's - elevated BNP, pedal edema persists, will start IV Lasix. Follow renal fx closely - echo with normal LVEF - per Dr. Mancia d/w thread dresser Dr Valentino weiner for antiplatelet - started on aspirin 81 mg daily and continue hi intensity statin (atorva 80) - plan for ischemic eval with mibi when stable DM - manage per primary HTN - cont home meds hypothyroidism - manage per primary PSVT -short self limited episodes in setting albuterol and steroids -Monitor on tele and if recurrent/persistent can consider starting meds.
[2019-11-20] MEDS: FUROSEMIDE 40 MG/4 ML INJECTABLE VIAL IVPUSH SCH (15:45)
[2019-11-20] MEDS: ATORVASTATIN CA 80 MG TABLET (FP) PO SCH (21:16)
[2019-11-21] MEDS: methylPREDNISolone NA SUCC 40 MG/1 ML VIAL IVPUSH SCH ×3 (01:34→17:11)
[2019-11-21] MEDS ORDERED: LEVOTHYROXINE NA 25 MCG TABLET (FP) ONE (06:25)
[2019-11-21] MEDS ORDERED: LEVOTHYROXINE NA 112 MCG TABLET (FP) ONE (06:26)
[2019-11-21] MEDS: LEVOTHYROXINE 112 MCG, LEVOTHYROXINE 25 MCG PO SCH (06:33)
[2019-11-21] MEDS: NIFEdipine E.R 60 MG TABLET PO SCH (06:34)
[2019-11-21] MEDS: INSULIN SLIDING SCALE (NOVOLOG) 1 VIAL SQ SCH ×4 (06:34→21:09)
[2019-11-21] MEDS: INSULIN (LEVEMIR) 100 UNITS/ML UNITS SQ SCH ×2 (06:34→21:09)
[2019-11-21 07:52] LABS: BLOOD UREA NITROGEN 37.1 mg/dL (7-18); CALCIUM 9.3 mg/dL (8.5-10.1); CREATININE 1.5 mg/dL (0.55-1.3); POTASSIUM 4.4 mmol/L (3.5-5.1)
[2019-11-21] MEDS: TIOTROPIUM BROMIDE 2.5 MCG (SPIRIVA) RESPIMAT INHALER IH SCH (10:24)
[2019-11-21] MEDS: LATANOPROST 0.005% OPHTH SOLN 2.5ML BOTTLE OU SCH (10:26)
[2019-11-21] MEDS: ASPIRIN 81 MG CHEWABLE TABLETS PO SCH (10:27)
[2019-11-21] MEDS: PANTOPRAZOLE 40 MG TABLET PO SCH (10:27)
[2019-11-21] MEDS: FUROSEMIDE 40 MG/4 ML INJECTABLE VIAL IVPUSH SCH (10:27)
--- NOTE | 2019-11-21 11:57 | PN ---
Progress Note (short form) - Note Progress Note: feels slightly better does not want to use BIPAP - feels anxious sob when ambulating Vital Signs - 24 hr 11/20/19 11/20/19 11/20/19 14:00 18:00 20:45 Temperature 97.9 F 98.0 F Pulse Rate 86 87 Respiratory 18 20 Rate Blood Pressure 163/80 163/79 O2 Sat by Pulse 94 L Oximetry (%) 11/20/19 11/21/19 11/21/19 21:20 01:48 06:00 Temperature 98.0 F 98.1 F 98.7 F Pulse Rate 92 H 92 H 82 Respiratory 20 20 18 Rate Blood Pressure 160/90 152/82 158/70 O2 Sat by Pulse Oximetry (%) 11/21/19 11/21/19 09:00 10:00 Temperature 98.6 F Pulse Rate 86 Respiratory 18 Rate Blood Pressure 147/72 O2 Sat by Pulse 92 L Oximetry (%) Current Medications Generic Name Dose Route Start Last Admin Trade Name Freq PRN Reason Stop Dose Admin Albuterol Sulfate 1 amp 11/16/19 21:46 Ventolin 0.083% Nebulizer Soln - NEB Q4H PRN SHORT OF BREATH/WHEEZING Albuterol/Ipratropium 1 amp 11/17/19 08:00 11/20/19 20:19 Duoneb - NEB 1 amp RQID [facility] Administration Aspirin 81 mg 11/17/19 13:00 11/21/19 10:27 Asa - PO 81 mg DAILY [facility] Administration Atorvastatin Calcium 80 mg 11/17/19 22:00 11/20/19 21:16 Lipitor - PO 80 mg HS [facility] Administration Furosemide 40 mg 11/20/19 15:15 11/21/19 10:27 Lasix Injection - IVPUSH 40 mg DAILY [facility] Administration Insulin Aspart 1 vial 11/16/19 22:00 11/21/19 06:34 Novolog Vial Sliding Scale - SQ 6 units ACHS [facility] Administration Protocol Insulin Detemir 18 units 11/20/19 13:46 11/21/19 06:34 Levemir Vial SQ 18 unit BID@0700,2200 [facility] Administration Latanoprost 5 drop 11/18/19 10:00 11/21/19 10:26 Xalatan 0.005% Eye Drops - OU 5 drop DAILY [facility] Administration Levothyroxine Sodium 112 mcg/ 137 mcg 11/17/19 12:00 11/21/19 06:33 Levothyroxine Sodium 25 mcg PO 137 mcg DAILY@0700 [facility] Administration Methylprednisolone Sodium Succinate 40 mg 11/17/19 02:00 11/21/19 10:27 Solu-Medrol - IVPUSH 40 mg Q8H-IV [facility] Administration Nifedipine 60 mg 11/18/19 06:00 11/21/19 06:34 Procardia Xl - PO 60 mg DAILY@0600 [facility] Administration Pantoprazole Sodium 40 mg 11/17/19 10:00 11/21/19 10:27 Protonix - PO 40 mg DAILY [facility] Administration Tiotropium [place] 2 puff 11/17/19 10:00 11/21/19 10:24 Spiriva Respimat IH 2 puff DAILY [facility] Administration Laboratory Results - last 24 hr 11/20/19 11/20/19 11/20/19 11:53 16:57 20:53 Sodium Potassium Chloride Carbon Dioxide Anion Gap BUN Creatinine Est GFR (CKD-EPI)AfAm Est GFR (CKD-EPI)NonAf POC Glucometer 268 289 365 Random Glucose Calcium 11/21/19 11/21/19 06:18 06:30 Sodium 138 Potassium 4.4 Chloride 98 Carbon Dioxide 36 H Anion Gap 4 L BUN 37.1 H Creatinine 1.5 H Est GFR (CKD-EPI)AfAm 40.20 Est GFR (CKD-EPI)NonAf 34.69 POC Glucometer 332 Random Glucose 321 H Calcium 9.3 S1 S2 RRR Lungs decreased breath sounds Ronchi+ Abd- soft, obese edema+ A/P COPD exacerbation -- Solumedrol -- keep same dose -- Nebs -- O2 --she agreed to try the BIPAP tonight -- O2 sat off O2- decreased to 80's DM -- increase Levemir - sugars elevated due to Solumedrol Hypothyroidism -- continue with Synthroid On IV Lasix for stress test once stable Problem List - Problems (1) COPD exacerbation Code(s): J44.1 - CHRONIC OBSTRUCTIVE PULMONARY DISEASE W (ACUTE) EXACERBATION (2) Acute respiratory failure with hypoxia and hypercapnia Code(s): J96.01 - ACUTE RESPIRATORY FAILURE WITH HYPOXIA; J96.02 - ACUTE RESPIRATORY FAILURE WITH HYPERCAPNIA (3) Diabetes Code(s): E11.9 - TYPE 2 DIABETES MELLITUS WITHOUT COMPLICATIONS (4) HTN (hypertension) Code(s): I10 - ESSENTIAL (PRIMARY) HYPERTENSION (5) Hypothyroidism Code(s): E03.9 - HYPOTHYROIDISM, UNSPECIFIED
[2019-11-21] MEDS: ALBUTEROL SO4 2.5/IPRATROPIUM 0.5 INH SOL 3 ML VIAL.NEB. NEB SCH ×4 (12:37→20:30)
--- NOTE | 2019-11-21 13:29 | PN ---
Progress Note (short form) - Note Progress Note: PULMONARY States breathing continues to improve. Less cough and wheezing. Vital Signs Period Temp Pulse Resp BP Sys/Saeed Pulse Ox Last 24 Hr 97.9 F-98.7 F 82-92 18-20 147-163/70-90 92-94 Gen: NAD at rest Heart: RRR Lung: scattered rhonchi, wheezes Abd: soft, nontender Ext: + edema CBC, BMP 11/17/19 05:32 11/21/19 06:30 Active Medications Albuterol Sulfate (Ventolin 0.083% Nebulizer Soln -) 1 amp NEB Q4H PRN PRN Reason: SHORT OF BREATH/WHEEZING Albuterol/Ipratropium (Duoneb -) 1 amp NEB RQID [facility] Last Admin: 11/21/19 12:41 Dose: 1 amp Aspirin (Asa -) 81 mg PO DAILY [facility] Last Admin: 11/21/19 10:27 Dose: 81 mg Atorvastatin Calcium (Lipitor -) 80 mg PO HS [facility] Last Admin: 11/20/19 21:16 Dose: 80 mg Furosemide (Lasix Injection -) 40 mg IVPUSH DAILY [facility] Last Admin: 11/21/19 10:27 Dose: 40 mg Insulin Aspart (Novolog Vial Sliding Scale -) 1 vial SQ ACHS [facility]; Protocol Last Admin: 11/21/19 11:55 Dose: 2 units Insulin Detemir (Levemir Vial) 20 units SQ BID@0700,2200 [facility] Latanoprost (Xalatan 0.005% Eye Drops -) 5 drop OU DAILY [facility] Last Admin: 11/21/19 10:26 Dose: 5 drop Levothyroxine Sodium 112 mcg/ (Levothyroxine Sodium 25 mcg) 137 mcg PO DAILY@ 0700 [facility] Last Admin: 11/21/19 06:33 Dose: 137 mcg Methylprednisolone Sodium Succinate (Solu-Medrol -) 40 mg IVPUSH Q8H-IV [facility] Last Admin: 11/21/19 10:27 Dose: 40 mg Nifedipine (Procardia Xl -) 60 mg PO DAILY@0600 [facility] Last Admin: 11/21/19 06:34 Dose: 60 mg Pantoprazole Sodium (Protonix -) 40 mg PO DAILY [facility] Last Admin: 11/21/19 10:27 Dose: 40 mg Tiotropium Edwards (Spiriva Respimat) 2 puff IH DAILY [facility] Last Admin: 11/21/19 10:24 Dose: 2 puff A/P Acute COPD Exacerbation +Troponins likely Demand Ischemia HTN DM Hyperlipidemia Hypothyroidism - can taper medrol in AM - inhaled bronchodilators - O2 to keep SpO2 >90% - DVT prophylaxis - outpt PFTs
--- NOTE | 2019-11-21 14:45 | PN ---
Progress Note (short form) - Note Progress Note: s: less sob, less le edema. no cp palps dizzy TELE:sr Current Medications Generic Name Dose Route Start Last Admin Trade Name Kalpesh PRN Reason Stop Dose Admin Albuterol Sulfate 1 amp 11/16/19 21:46 Ventolin 0.083% Nebulizer Soln - NEB Q4H PRN SHORT OF BREATH/WHEEZING Albuterol/Ipratropium 1 amp 11/17/19 08:00 11/21/19 12:41 Duoneb - NEB 1 amp RQID MOR Administration Aspirin 81 mg 11/17/19 13:00 11/21/19 10:27 Asa - PO 81 mg DAILY MOR Administration Atorvastatin Calcium 80 mg 11/17/19 22:00 11/20/19 21:16 Lipitor - PO 80 mg HS MOR Administration Furosemide 40 mg 11/20/19 15:15 11/21/19 10:27 Lasix Injection - IVPUSH 40 mg DAILY MOR Administration Insulin Aspart 1 vial 11/16/19 22:00 11/21/19 11:55 Novolog Vial Sliding Scale - SQ 2 units ACHS MOR Administration Protocol Insulin Detemir 20 units 11/21/19 11:57 Levemir Vial SQ BID@0700,2200 [facility] Latanoprost 5 drop 11/18/19 10:00 11/21/19 10:26 Xalatan 0.005% Eye Drops - OU 5 drop DAILY MOR Administration Levothyroxine Sodium 112 mcg/ 137 mcg 11/17/19 12:00 11/21/19 06:33 Levothyroxine Sodium 25 mcg PO 137 mcg DAILY@0700 [facility] Administration Methylprednisolone Sodium Succinate 40 mg 11/17/19 02:00 11/21/19 10:27 Solu-Medrol - IVPUSH 40 mg Q8H-IV MOR Administration Nifedipine 60 mg 11/18/19 06:00 11/21/19 06:34 Procardia Xl - PO 60 mg DAILY@0600 M[facility] Administration Pantoprazole Sodium 40 mg 11/17/19 10:00 11/21/19 10:27 Protonix - PO 40 mg DAILY MOR Administration Tiotropium [place] 2 puff 11/17/19 10:00 11/21/19 10:24 Spiriva Respimat IH 2 puff DAILY MOR Administration Vital Signs Period Temp Pulse Resp BP Sys/Saeed Pulse Ox Last 24 Hr 97.8 F-98.7 F 82-96 18-20 147-163/70-90 92-94 Constitutional: Yes: No Distress Cardiovascular: Yes: Regular Rate and Rhythm Respiratory: Yes: Other (b/l rhonci and mild expiratory wheezing) Gastrointestinal: Yes: Soft Edema: Yes Edema: 1+ Neurological: Yes: Alert, Oriented no jaundice diaphoresis Labs: CBC, BMP 11/17/19 05:32 11/21/19 06:30 Assessment/Plan EKG: sinus, nl intervals, no ischemic changes CXR: no acute process COPD exacerbation, shortness of breath: - manage per pulm elevated trop, likely due to mild acute on chronic diastolic CHF: - no ischemia on EKG, trop 0.14->0.8->0.5 - likely demand in setting of COPD exacerbation (Type II) - no angina sx's - elevated BNP, pedal edema persists, cont IV Lasix. Follow renal fx closely - echo with normal LVEF - per Dr. Mancia d/w manager talent management Dr Valentino weiner for antiplatelet - started on aspirin 81 mg daily and continue hi intensity statin (atorva 80) - plan for ischemic eval with mibi when stable DM - manage per primary HTN - cont home meds hypothyroidism - manage per primary PSVT -short self limited episodes in setting albuterol and steroids -Monitor on tele and if recurrent/persistent can consider starting meds.
[2019-11-21] MEDS: ATORVASTATIN CA 80 MG TABLET (FP) PO SCH (21:09)
[2019-11-22] MEDS: methylPREDNISolone NA SUCC 40 MG/1 ML VIAL IVPUSH SCH ×3 (02:20→21:59)
[2019-11-22] MEDS: NIFEdipine E.R 60 MG TABLET PO SCH (06:52)
[2019-11-22] MEDS: INSULIN SLIDING SCALE (NOVOLOG) 1 VIAL SQ SCH ×4 (06:52→22:00)
[2019-11-22] MEDS: INSULIN (LEVEMIR) 100 UNITS/ML UNITS SQ SCH ×2 (06:52→22:00)
[2019-11-22] MEDS ORDERED: LEVOTHYROXINE NA 25 MCG TABLET (FP) ONE (06:53)
[2019-11-22] MEDS ORDERED: LEVOTHYROXINE NA 112 MCG TABLET (FP) ONE (06:53)
[2019-11-22] MEDS: LEVOTHYROXINE 112 MCG, LEVOTHYROXINE 25 MCG PO SCH (06:54)
[2019-11-22 07:56] LABS: HEMATOCRIT 49.7 % (32.4-45.2); HEMOGLOBIN 15.6 GM/dL (10.7-15.3); MCH 28.4 pg (25.7-33.7); MCHC 31.5 g/dl (32.0-36.0); MEAN CELL VOLUME 90.1 fl (80-96); PLATELET COUNT 185 K/MM3 (134-434); RBC 5.52 M/mm3 (3.60-5.2); RDW 15.9 % (11.6-15.6); WHITE BLOOD COUNT 10.3 K/mm3 (4.0-10.0)
[2019-11-22 08:07] LABS: BLOOD UREA NITROGEN 42.4 mg/dL (7-18); CALCIUM 9.6 mg/dL (8.5-10.1); CREATININE 1.6 mg/dL (0.55-1.3); POTASSIUM 5.1 mmol/L (3.5-5.1)
[2019-11-22] MEDS: FUROSEMIDE 40 MG/4 ML INJECTABLE VIAL IVPUSH SCH (09:28)
[2019-11-22] MEDS: PANTOPRAZOLE 40 MG TABLET PO SCH (09:28)
[2019-11-22] MEDS: ASPIRIN 81 MG CHEWABLE TABLETS PO SCH (09:28)
[2019-11-22] MEDS: LATANOPROST 0.005% OPHTH SOLN 2.5ML BOTTLE OU SCH (09:29)
[2019-11-22] MEDS: TIOTROPIUM BROMIDE 2.5 MCG (SPIRIVA) RESPIMAT INHALER IH SCH (09:29)
--- NOTE | 2019-11-22 10:54 | PN ---
Progress Note (short form) - Note Progress Note: s: less sob, less le edema. no cp palps dizzy TELE:sr Current Medications Generic Name Dose Route Start Last Admin Trade Name Kalpesh PRN Reason Stop Dose Admin Aspirin 81 mg 11/17/19 13:00 11/22/19 09:28 Asa - PO 81 mg DAILY MOR Administration Atorvastatin Calcium 80 mg 11/17/19 22:00 11/21/19 21:09 Lipitor - PO 80 mg HS MOR Administration Furosemide 40 mg 11/20/19 15:15 11/22/19 09:28 Lasix Injection - IVPUSH 40 mg DAILY MOR Administration Insulin Aspart 1 vial 11/16/19 22:00 11/22/19 06:52 Novolog Vial Sliding Scale - SQ 6 units ACHS MOR Administration Protocol Insulin Detemir 20 units 11/21/19 11:57 11/22/19 06:52 Levemir Vial SQ 20 units BID@0700,2200 [facility] Administration Latanoprost 5 drop 11/18/19 10:00 11/22/19 09:29 Xalatan 0.005% Eye Drops - OU 5 drop DAILY [facility] Administration Levothyroxine Sodium 112 mcg/ 137 mcg 11/17/19 12:00 11/22/19 06:54 Levothyroxine Sodium 25 mcg PO 137 mcg DAILY@0700 [facility] Administration Methylprednisolone Sodium Succinate 40 mg 11/17/19 02:00 11/22/19 09:28 Solu-Medrol - IVPUSH 40 mg Q8H-IV [facility]OR Administration Nifedipine 60 mg 11/18/19 06:00 11/22/19 06:52 Procardia Xl - PO 60 mg DAILY@0600 [facility] Administration Pantoprazole Sodium 40 mg 11/17/19 10:00 11/22/19 09:28 Protonix - PO 40 mg DAILY MOR Administration Tiotropium [place] 2 puff 11/17/19 10:00 11/22/19 09:29 Spiriva Respimat IH 2 puff DAILY MOR Administration Vital Signs Period Temp Pulse Resp BP Sys/Saeed Pulse Ox Last 24 Hr 97.8 F-98.6 F 82-96 18-20 156-185/65-90 93-98 Constitutional: Yes: No Distress Cardiovascular: Yes: Regular Rate and Rhythm Respiratory: Yes: Other (b/l rhonci and mild expiratory wheezing) Gastrointestinal: Yes: Soft Edema: Yes Edema: 1+ Neurological: Yes: Alert, Oriented no jaundice diaphoresis Labs: CBC, BMP 11/22/19 06:58 11/22/19 06:58 Assessment/Plan EKG: sinus, nl intervals, no ischemic changes CXR: no acute process COPD exacerbation, shortness of breath: - manage per pulm elevated trop, likely due to mild acute on chronic diastolic CHF: - no ischemia on EKG, trop 0.14->0.8->0.5 - likely demand in setting of COPD exacerbation (Type II) - no angina sx's - pedal edema persists, likely iv steroids contributing. has been getting iv lasix but bun/cr rising now, will dc lasix for now. Follow renal fx closely - echo with normal LVEF - per Dr. Mancia d/w video editing intern Dr Valentino weiner for antiplatelet - started on aspirin 81 mg daily and continue hi intensity statin (atorva 80) - plan for ischemic eval with mibi when stable DM - manage per primary HTN - cont home meds hypothyroidism - manage per primary PSVT -short self limited episodes in setting albuterol and steroids -Monitor on tele and if recurrent/persistent can consider starting meds.
[2019-11-22] MEDS ORDERED: ALBUTEROL SO4 0.083% IH SOL 2.5 MG/3 ML VIAL.NEB. NEB PRN (11:42)
[2019-11-22] MEDS ORDERED: ALBUTEROL SO4 HFA INHALER IH PRN (11:58)
--- NOTE | 2019-11-22 11:59 | PN ---
Progress Note (short form) - Note Progress Note: PULMONARY States breathing continues to improve. Less cough and wheezing. Vital Signs Period Temp Pulse Resp BP Sys/Saeed Pulse Ox Last 24 Hr 97.8 F-98.6 F 82-96 18-20 140-185/63-90 93-98 Gen: NAD at rest Heart: RRR Lung: less scattered rhonchi, wheezes Abd: soft, nontender Ext: + edema CBC, BMP 11/22/19 06:58 11/22/19 06:58 Active Medications Albuterol Sulfate (Ventolin 0.083% Nebulizer Soln -) 1 amp NEB Q4H PRN PRN Reason: SHORT OF BREATH/WHEEZING Albuterol Sulfate (Ventolin 0.083% Nebulizer Soln -) 1 amp NEB RQID [facility] Albuterol Sulfate (Ventolin Hfa Inhaler -) 2 puff IH Q4H PRN PRN Reason: SHORT OF BREATH/WHEEZING Aspirin (Asa -) 81 mg PO DAILY [facility] Last Admin: 11/22/19 09:28 Dose: 81 mg Atorvastatin Calcium (Lipitor -) 80 mg PO HS [facility] Last Admin: 11/21/19 21:09 Dose: 80 mg Insulin Aspart (Novolog Vial Sliding Scale -) 1 vial SQ [facility]; Protocol Last Admin: 11/22/19 11:47 Dose: 8 units Insulin Detemir (Levemir Vial) 20 units SQ BID@0700,2200 [facility] Last Admin: 11/22/19 06:52 Dose: 20 units Latanoprost (Xalatan 0.005% Eye Drops -) 5 drop OU DAILY [facility] Last Admin: 11/22/19 09:29 Dose: 5 drop Levothyroxine Sodium 112 mcg/ (Levothyroxine Sodium 25 mcg) 137 mcg PO DAILY@ 0700 [facility] Last Admin: 11/22/19 06:54 Dose: 137 mcg Methylprednisolone Sodium Succinate (Solu-Medrol -) 40 mg IVPUSH Q8H-IV [facility] Last Admin: 11/22/19 09:28 Dose: 40 mg Nifedipine (Procardia Xl -) 60 mg PO DAILY@0600 [facility] Last Admin: 11/22/19 06:52 Dose: 60 mg Pantoprazole Sodium (Protonix -) 40 mg PO DAILY [facility] Last Admin: 11/22/19 09:28 Dose: 40 mg Tiotropium [place] (Spiriva Respimat) 2 puff IH DAILY [facility] Last Admin: 11/22/19 09:29 Dose: 2 puff A/P Acute COPD Exacerbation +Troponins likely Demand Ischemia HTN DM Hyperlipidemia Hypothyroidism - will decrease medrol to q12h - can likely change steroids to PO prednisone 40mg daily in AM if continues to improve - inhaled bronchodilators - O2 to keep SpO2 >90% - DVT prophylaxis - outpt PFTs
--- NOTE | 2019-11-22 12:03 | PN ---
Progress Note (short form) - Note Progress Note: feels better does not want to use BIPAP - she tried yesterday but could not tolerate Vital Signs - 24 hr 11/21/19 11/21/19 11/21/19 14:00 18:00 20:14 Temperature 97.8 F 98.6 F Pulse Rate 96 H 90 Respiratory 18 18 Rate Blood Pressure 162/79 156/65 O2 Sat by Pulse 93 L Oximetry (%) 11/21/19 11/21/19 11/21/19 20:16 20:30 20:46 Temperature 98.4 F Pulse Rate 93 H Respiratory 20 Rate Blood Pressure 159/90 O2 Sat by Pulse 93 L 97 Oximetry (%) 11/22/19 11/22/19 11/22/19 02:00 05:23 07:56 Temperature 98.4 F 98.3 F Pulse Rate 94 H 82 Respiratory 20 20 Rate Blood Pressure 167/83 185/89 H O2 Sat by Pulse 98 Oximetry (%) 11/22/19 09:00 Temperature 98.5 F Pulse Rate 92 H Respiratory 19 Rate Blood Pressure 140/63 O2 Sat by Pulse Oximetry (%) Current Medications Generic Name Dose Route Start Last Admin Trade Name Freq PRN Reason Stop Dose Admin Albuterol Sulfate 1 amp 11/22/19 11:42 Ventolin 0.083% Nebulizer Soln - NEB Q4H PRN SHORT OF BREATH/WHEEZING Albuterol Sulfate 1 amp 11/22/19 12:00 Ventolin 0.083% Nebulizer Soln - NEB RQID MOR Albuterol Sulfate 2 puff 11/22/19 11:58 Ventolin Hfa Inhaler - IH Q4H PRN SHORT OF BREATH/WHEEZING Aspirin 81 mg 11/17/19 13:00 11/22/19 09:28 Asa - PO 81 mg DAILY MOR Administration Atorvastatin Calcium 80 mg 11/17/19 22:00 11/21/19 21:09 Lipitor - PO 80 mg HS MOR Administration Insulin Aspart 1 vial 11/16/19 22:00 11/22/19 11:47 Novolog Vial Sliding Scale - SQ 8 units ACHS MOR Administration Protocol Insulin Detemir 20 units 11/21/19 11:57 11/22/19 06:52 Levemir Vial SQ 20 units BID@0700,2200 MOR Administration Latanoprost 5 drop 11/18/19 10:00 11/22/19 09:29 Xalatan 0.005% Eye Drops - OU 5 drop DAILY MOR Administration Levothyroxine Sodium 112 mcg/ 137 mcg 11/17/19 12:00 11/22/19 06:54 Levothyroxine Sodium 25 mcg PO 137 mcg DAILY@0700 MOR Administration Methylprednisolone Sodium Succinate 40 mg 11/17/19 02:00 11/22/19 09:28 Solu-Medrol - IVPUSH 40 mg Q8H-IV MOR Administration Nifedipine 60 mg 11/18/19 06:00 11/22/19 06:52 Procardia Xl - PO 60 mg DAILY@0600 MOR Administration Pantoprazole Sodium 40 mg 11/17/19 10:00 11/22/19 09:28 Protonix - PO 40 mg DAILY MOR Administration Tiotropium [place] 2 puff 11/17/19 10:00 11/22/19 09:29 Spiriva Respimat IH 2 puff DAILY MOR Administration Laboratory Results - last 24 hr 11/21/19 11/21/19 11/21/19 11:54 16:55 21:07 WBC RBC Hgb Hct MCV MCH MCHC RDW Plt Count MPV Sodium Potassium Chloride Carbon Dioxide Anion Gap BUN Creatinine Est GFR (CKD-EPI)AfAm Est GFR (CKD-EPI)NonAf POC Glucometer 229 385 396 Random Glucose Calcium 11/22/19 11/22/19 11/22/19 06:49 06:58 06:58 WBC 10.3 H RBC 5.52 H Hgb 15.6 H Hct 49.7 H MCV 90.1 MCH 28.4 MCHC 31.5 L RDW 15.9 H Plt Count 185 MPV 9.0 Sodium 139 Potassium 5.1 Chloride 96 L Carbon Dioxide 39 H Anion Gap 3 L BUN 42.4 H Creatinine 1.6 H Est GFR (CKD-EPI)AfAm 37.19 Est GFR (CKD-EPI)NonAf 32.09 POC Glucometer 337 Random Glucose 338 H Calcium 9.6 11/22/19 11/22/19 11:43 11:45 WBC RBC Hgb Hct MCV MCH MCHC RDW Plt Count MPV Sodium Potassium Chloride Carbon Dioxide Anion Gap BUN Creatinine Est GFR (CKD-EPI)AfAm Est GFR (CKD-EPI)NonAf POC Glucometer 463 371 Random Glucose Calcium S1 S2 RRR Lungs decreased breath sounds Ronchi+ decreased Abd- soft, obese edema+ A/P COPD exacerbation -- Solumedrol -- tapering -- Nebs -- O2 -- O2 sat off O2- decreased to 80's DM -- increase Levemir - sugars elevated due to Solumedrol Hypothyroidism -- continue with Synthroid On IV Lasix for stress test once stable Problem List - Problems (1) COPD exacerbation Code(s): J44.1 - CHRONIC OBSTRUCTIVE PULMONARY DISEASE W (ACUTE) EXACERBATION (2) Acute respiratory failure with hypoxia and hypercapnia Code(s): J96.01 - ACUTE RESPIRATORY FAILURE WITH HYPOXIA; J96.02 - ACUTE RESPIRATORY FAILURE WITH HYPERCAPNIA (3) Diabetes Code(s): E11.9 - TYPE 2 DIABETES MELLITUS WITHOUT COMPLICATIONS (4) HTN (hypertension) Code(s): I10 - ESSENTIAL (PRIMARY) HYPERTENSION (5) Hypothyroidism Code(s): E03.9 - HYPOTHYROIDISM, UNSPECIFIED
[2019-11-22] MEDS: ALBUTEROL SO4 0.083% IH SOL 2.5 MG/3 ML VIAL.NEB. NEB SCH ×3 (13:52→20:38)
[2019-11-22] MEDS: ATORVASTATIN CA 80 MG TABLET (FP) PO SCH (21:59)
[2019-11-23] MEDS ORDERED: LEVOTHYROXINE NA 25 MCG TABLET (FP) ONE (06:51)
[2019-11-23] MEDS ORDERED: LEVOTHYROXINE NA 112 MCG TABLET (FP) ONE (06:51)
[2019-11-23] MEDS: NIFEdipine E.R 60 MG TABLET PO SCH (06:53)
[2019-11-23] MEDS: LEVOTHYROXINE 112 MCG, LEVOTHYROXINE 25 MCG PO SCH (06:54)
[2019-11-23] MEDS: INSULIN (LEVEMIR) 100 UNITS/ML UNITS SQ SCH ×2 (06:54→21:27)
[2019-11-23] MEDS: INSULIN SLIDING SCALE (NOVOLOG) 1 VIAL SQ SCH ×4 (06:54→21:28)
[2019-11-23 07:46] LABS: BASO % 0.2 % (0-2.0); HEMATOCRIT 47.7 % (32.4-45.2); HEMOGLOBIN 15.2 GM/dL (10.7-15.3); LYMPH % 4.1 % (8-40); MCH 28.6 pg (25.7-33.7); MCHC 31.9 g/dl (32.0-36.0); MEAN CELL VOLUME 89.6 fl (80-96); MEAN PLT VOLUME 9.4 fl (7.5-11.1); MONO % 3.3 % (3.8-10.2); NEUT % 92.4 % (42.8-82.8); PLATELET COUNT 194 K/MM3 (134-434); RBC 5.33 M/mm3 (3.60-5.2)
[2019-11-23] MEDS: ALBUTEROL SO4 0.083% IH SOL 2.5 MG/3 ML VIAL.NEB. NEB SCH ×4 (08:07→20:15)
[2019-11-23 08:11] LABS: ALBUMIN 2.8 g/dl (3.4-5.0); BILIRUBIN,TOTAL 0.4 mg/dL (0.2-1); BLOOD UREA NITROGEN 44.2 mg/dL (7-18); CALCIUM 9.2 mg/dL (8.5-10.1); CREATININE 1.4 mg/dL (0.55-1.3); POTASSIUM 4.7 mmol/L (3.5-5.1); TOT PROT 5.8 g/dl (6.4-8.2)
--- NOTE | 2019-11-23 08:25 | PN ---
Progress Note (short form) - Note Progress Note: OOB to chair on O2. Cough and breathing seem overall better. No acute events overnight. Intake & Output 11/20/19 11/21/19 11/22/19 11/23/19 23:59 23:59 23:59 23:59 Intake Total 1370 1620 240 Balance 1370 1620 240 Last Vital Signs Temp Pulse Resp BP Pulse Ox 98.1 F 78 16 153/62 94 L 11/23/19 05:55 11/23/19 05:55 11/23/19 05:55 11/23/19 05:55 11/23/19 08:06 Active Medications Albuterol Sulfate (Ventolin 0.083% Nebulizer Soln -) 1 amp NEB Q4H PRN PRN Reason: SHORT OF BREATH/WHEEZING Albuterol Sulfate (Ventolin 0.083% Nebulizer Soln -) 1 amp NEB RQID [facility] Last Admin: 11/23/19 08:07 Dose: 1 amp Albuterol Sulfate (Ventolin Hfa Inhaler -) 2 puff IH Q4H PRN PRN Reason: SHORT OF BREATH/WHEEZING Aspirin (Asa -) 81 mg PO DAILY [facility] Last Admin: 11/22/19 09:28 Dose: 81 mg Atorvastatin Calcium (Lipitor -) 80 mg PO HS [facility] Last Admin: 11/22/19 21:59 Dose: 80 mg Insulin Aspart (Novolog Vial Sliding Scale -) 1 vial SQ [facility]; Protocol Last Admin: 11/23/19 06:54 Dose: 1 units Insulin Detemir (Levemir Vial) 20 units SQ BID@0700,2200 [facility] Last Admin: 11/23/19 06:54 Dose: 20 units Latanoprost (Xalatan 0.005% Eye Drops -) 5 drop OU DAILY [facility] Last Admin: 11/22/19 09:29 Dose: 5 drop Levothyroxine Sodium 112 mcg/ (Levothyroxine Sodium 25 mcg) 137 mcg PO DAILY@ 0700 [facility] Last Admin: 11/23/19 06:54 Dose: 137 mcg Methylprednisolone Sodium Succinate (Solu-Medrol -) 40 mg IVPUSH Q12H [facility] Last Admin: 11/22/19 21:59 Dose: 40 mg Nifedipine (Procardia Xl -) 60 mg PO DAILY@0600 [facility] Last Admin: 01/17/20 06:53 Dose: 60 mg Pantoprazole Sodium (Protonix -) 40 mg PO DAILY [facility] Last Admin: 11/22/19 09:28 Dose: 40 mg Tiotropium [place] (Spiriva Respimat) 2 puff IH DAILY [facility] Last Admin: 11/22/19 09:29 Dose: 2 puff Gen: NAD at rest Heart: RRR Lung: scattered rhonchi, No wheezes appreciated Abd: soft, nontender Ext: + edema Laboratory Results - last 24 hr 11/22/19 11/22/19 11/22/19 11:43 11:45 16:39 WBC RBC Hgb Hct MCV MCH MCHC RDW Plt Count MPV Absolute Neuts (auto) Neutrophils % Lymphocytes % Monocytes % Eosinophils % Basophils % Nucleated RBC % Sodium Potassium Chloride Carbon Dioxide Anion Gap BUN Creatinine Est GFR (CKD-EPI)AfAm Est GFR (CKD-EPI)NonAf POC Glucometer 463 371 337 Random Glucose Calcium Total Bilirubin AST ALT Alkaline Phosphatase Total Protein Albumin 11/22/19 11/23/19 11/23/19 21:58 05:35 06:32 WBC 9.0 RBC 5.33 H Hgb 15.2 Hct 47.7 H MCV 89.6 MCH 28.6 MCHC 31.9 L RDW 16.0 H Plt Count 194 MPV 9.4 Absolute Neuts (auto) 8.4 H Neutrophils % 92.4 H Lymphocytes % 4.1 L D Monocytes % 3.3 L Eosinophils % 0.0 Basophils % 0.2 Nucleated RBC % 0 Sodium Potassium Chloride Carbon Dioxide Anion Gap BUN Creatinine Est GFR (CKD-EPI)AfAm Est GFR (CKD-EPI)NonAf POC Glucometer 313 178 Random Glucose Calcium Total Bilirubin AST ALT Alkaline Phosphatase Total Protein Albumin 11/23/19 06:32 WBC RBC Hgb Hct MCV MCH MCHC RDW Plt Count MPV Absolute Neuts (auto) Neutrophils % Lymphocytes % Monocytes % Eosinophils % Basophils % Nucleated RBC % Sodium 139 Potassium 4.7 Chloride 98 Carbon Dioxide 39 H Anion Gap 2 L BUN 44.2 H Creatinine 1.4 H Est GFR (CKD-EPI)AfAm 43.70 Est GFR (CKD-EPI)NonAf 37.71 POC Glucometer Random Glucose 172 H Calcium 9.2 Total Bilirubin 0.4 AST 20 ALT 39 Alkaline Phosphatase 84 Total Protein 5.8 L Albumin 2.8 L A/P Acute COPD Exacerbation +Troponins likely Demand Ischemia HTN DM Hyperlipidemia Hypothyroidism High suspicion of OSAS - can to prednisone 40mg daily x 5 days if DC Home is anticipated. Patient has home O2 already. - inhaled bronchodilators - O2 to keep SpO2 >90% - DVT prophylaxis - outpt PFTs - Outpatient sleep testing - No smoking There is no Pulmonary contraindication for DC Dr Birch
[2019-11-23 09:53] LABS: ANISOCYTOSIS 1+; MACROCYTOSIS 0; OVALOCYTE 1+; PLATELET ESTIMATE NORMAL; TEAR DROP CELLS 1+
[2019-11-23] MEDS: methylPREDNISolone NA SUCC 40 MG/1 ML VIAL IVPUSH SCH ×2 (10:07→21:28)
[2019-11-23] MEDS: ASPIRIN 81 MG CHEWABLE TABLETS PO SCH (10:08)
[2019-11-23] MEDS: PANTOPRAZOLE 40 MG TABLET PO SCH (10:08)
[2019-11-23] MEDS: TIOTROPIUM BROMIDE 2.5 MCG (SPIRIVA) RESPIMAT INHALER IH SCH (10:08)
[2019-11-23] MEDS: LATANOPROST 0.005% OPHTH SOLN 2.5ML BOTTLE OU SCH (10:09)
--- NOTE | 2019-11-23 11:04 | PN ---
Progress Note (short form) - Note Progress Note: pt seen/ examined chart reviewed relatively better still dysnic denies cp Vital Signs Temp 97.6 F 11/23/19 10:00 Pulse 81 11/23/19 10:00 Resp 18 11/23/19 10:00 BP 146/74 11/23/19 10:00 Pulse Ox 94 L 11/23/19 08:06 Intake & Output 11/22/19 11/22/19 11/23/19 11:59 23:59 11:59 Intake Total 120 120 Balance 120 120 Intake: Oral 120 120 Other: Voiding Method Toilet Toilet Toilet # Unmeasured Voids Void 1 0 Bowel Movement No Active Medications Albuterol Sulfate (Ventolin 0.083% Nebulizer Soln -) 1 amp NEB Q4H PRN PRN Reason: SHORT OF BREATH/WHEEZING Albuterol Sulfate (Ventolin 0.083% Nebulizer Soln -) 1 amp NEB RQID [facility] Last Admin: 11/23/19 08:07 Dose: 1 amp Albuterol Sulfate (Ventolin Hfa Inhaler -) 2 puff IH Q4H PRN PRN Reason: SHORT OF BREATH/WHEEZING Aspirin (Asa -) 81 mg PO DAILY [facility] Last Admin: 11/23/19 10:08 Dose: 81 mg Atorvastatin Calcium (Lipitor -) 80 mg PO HS [facility] Last Admin: 11/22/19 21:59 Dose: 80 mg Insulin Aspart (Novolog Vial Sliding Scale -) 1 vial SQ [facility]; Protocol Last Admin: 11/23/19 06:54 Dose: 1 units Insulin Detemir (Levemir Vial) 20 units SQ BID@0700,2200 [facility] Last Admin: 11/23/19 06:54 Dose: 20 units Latanoprost (Xalatan 0.005% Eye Drops -) 5 drop OU DAILY [facility] Last Admin: 11/23/19 10:09 Dose: 5 drop Levothyroxine Sodium 112 mcg/ (Levothyroxine Sodium 25 mcg) 137 mcg PO DAILY@ 0700 [facility] Last Admin: 11/23/19 06:54 Dose: 137 mcg Methylprednisolone Sodium Succinate (Solu-Medrol -) 40 mg IVPUSH Q12H [facility] Last Admin: 11/23/19 10:07 Dose: 40 mg Nifedipine (Procardia Xl -) 60 mg PO DAILY@0600 [facility] Last Admin: 11/23/19 06:53 Dose: 60 mg Pantoprazole Sodium (Protonix -) 40 mg PO DAILY [facility] Last Admin: 11/23/19 10:08 Dose: 40 mg Tiotropium [place] (Spiriva Respimat) 2 puff IH DAILY [facility] Last Admin: 11/23/19 10:08 Dose: 2 puff CBC, BMP 11/23/19 06:32 11/23/19 06:32 Physical Exam S1 S2 RRR Lungs decreased breath sounds/ scattered rhonchi Abd- soft, obese edema+ A/P COPD exacerbation -- Solumedrol -- tapering -- Nebs -- O2 DM -- increased Levemir - monitor Hypothyroidism -- continue with Synthroid On IV Lasix-- Held yesterday due to elevated bun/cr f/u labs for stress test once stable will follow Problem List - Problems (1) COPD exacerbation Code(s): J44.1 - CHRONIC OBSTRUCTIVE PULMONARY DISEASE W (ACUTE) EXACERBATION (2) Diabetes Code(s): E11.9 - TYPE 2 DIABETES MELLITUS WITHOUT COMPLICATIONS (3) Hypothyroidism Code(s): E03.9 - HYPOTHYROIDISM, UNSPECIFIED (4) NSTEMI (non-ST elevated myocardial infarction) Code(s): I21.4 - NON-ST ELEVATION (NSTEMI) MYOCARDIAL INFARCTION (5) Retinopathy Code(s): H35.00 - UNSPECIFIED BACKGROUND RETINOPATHY
--- NOTE | 2019-11-23 15:14 | PN ---
Progress Note (short form) - Note Progress Note: s: less sob, less le edema. no cp palps dizzy TELE:sr Current Medications Generic Name Dose Route Start Last Admin Trade Name Freq PRN Reason Stop Dose Admin Albuterol Sulfate 1 amp 11/22/19 11:42 Ventolin 0.083% Nebulizer Soln - NEB Q4H PRN SHORT OF BREATH/WHEEZING Albuterol Sulfate 1 amp 11/22/19 12:00 11/23/19 11:36 Ventolin 0.083% Nebulizer Soln - NEB 1 amp RQID [facility] Administration Albuterol Sulfate 2 puff 11/22/19 11:58 Ventolin Hfa Inhaler - IH Q4H PRN SHORT OF BREATH/WHEEZING Aspirin 81 mg 11/17/19 13:00 11/23/19 10:08 Asa - PO 81 mg DAILY [facility] Administration Atorvastatin Calcium 80 mg 11/17/19 22:00 11/22/19 21:59 Lipitor - PO 80 mg HS [facility] Administration Insulin Aspart 1 vial 11/16/19 22:00 11/23/19 12:09 Novolog Vial Sliding Scale - SQ 1 units ACHS [facility] Administration Protocol Insulin Detemir 20 units 11/21/19 11:57 11/23/19 06:54 Levemir Vial SQ 20 units BID@0700,2200 [facility] Administration Latanoprost 5 drop 11/18/19 10:00 11/23/19 10:09 Xalatan 0.005% Eye Drops - OU 5 drop DAILY [facility] Administration Levothyroxine Sodium 112 mcg/ 137 mcg 11/17/19 12:00 11/23/19 06:54 Levothyroxine Sodium 25 mcg PO 137 mcg DAILY@0700 [facility] Administration Methylprednisolone Sodium Succinate 40 mg 11/22/19 22:00 11/23/19 10:07 Solu-Medrol - IVPUSH 40 mg Q12H [facility] Administration Nifedipine 60 mg 11/18/19 06:00 11/23/19 06:53 Procardia Xl - PO 60 mg DAILY@0600 [facility] Administration Pantoprazole Sodium 40 mg 11/17/19 10:00 11/23/19 10:08 Protonix - PO 40 mg DAILY [facility] Administration Tiotropium [place] 2 puff 11/17/19 10:00 11/23/19 10:08 Spiriva Respimat IH 2 puff DAILY [facility] Administration Vital Signs Period Temp Pulse Resp BP Sys/Saeed Pulse Ox Last 24 Hr 97.6 F-98.6 F 78-87 16-20 135-161/62-82 94-99 Constitutional: Yes: No Distress Cardiovascular: Yes: Regular Rate and Rhythm Respiratory: Yes: Other (b/l rhonci and mild expiratory wheezing) Gastrointestinal: Yes: Soft Edema: trace Neurological: Yes: Alert, Oriented no jaundice diaphoresis Labs: CBC, BMP 11/23/19 06:32 11/23/19 06:32 Assessment/Plan EKG: sinus, nl intervals, no ischemic changes CXR: no acute process COPD exacerbation, shortness of breath: - manage per pulm elevated trop, likely due to mild acute on chronic diastolic CHF: - no ischemia on EKG, trop 0.14->0.8->0.5 - likely demand in setting of COPD exacerbation (Type II) - no angina sx's - pedal edema persists, likely iv steroids contributing. has been getting iv lasix but bun/cr rising now, will dc lasix for now. Follow renal fx closely - echo with normal LVEF - per Dr. 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
[2019-11-23] MEDS: ATORVASTATIN CA 80 MG TABLET (FP) PO SCH (21:27)
[2019-11-24] MEDS ORDERED: LEVOTHYROXINE NA 112 MCG TABLET (FP) ONE (05:52)
[2019-11-24] MEDS ORDERED: LEVOTHYROXINE NA 25 MCG TABLET (FP) ONE (05:52)
[2019-11-24] MEDS: INSULIN (LEVEMIR) 100 UNITS/ML UNITS SQ SCH ×2 (06:16→22:01)
[2019-11-24] MEDS: INSULIN SLIDING SCALE (NOVOLOG) 1 VIAL SQ SCH ×4 (06:17→22:01)
[2019-11-24] MEDS: LEVOTHYROXINE 112 MCG, LEVOTHYROXINE 25 MCG PO SCH (06:19)
[2019-11-24] MEDS: NIFEdipine E.R 60 MG TABLET PO SCH (06:19)
[2019-11-24 07:25] LABS: BASO % 0.4 % (0-2.0); EOS % 0.1 % (0-4.5); HEMATOCRIT 47.2 % (32.4-45.2); LYMPH % 3.1 % (8-40); MCH 28.6 pg (25.7-33.7); MCHC 31.8 g/dl (32.0-36.0); MEAN CELL VOLUME 89.9 fl (80-96); MEAN PLT VOLUME 9.1 fl (7.5-11.1); MONO % 2.3 % (3.8-10.2); NEUT % 94.1 % (42.8-82.8); PLATELET COUNT 174 K/MM3 (134-434); RBC 5.25 M/mm3 (3.60-5.2); RDW 16.1 % (11.6-15.6); WHITE BLOOD COUNT 10.5 K/mm3 (4.0-10.0)
[2019-11-24 08:02] LABS: ALBUMIN 2.6 g/dl (3.4-5.0); BILIRUBIN,TOTAL 0.4 mg/dL (0.2-1); BLOOD UREA NITROGEN 42.2 mg/dL (7-18); CALCIUM 9.7 mg/dL (8.5-10.1); CREATININE 1.4 mg/dL (0.55-1.3); POTASSIUM 4.8 mmol/L (3.5-5.1); TOT PROT 5.7 g/dl (6.4-8.2)
[2019-11-24] MEDS: ALBUTEROL SO4 0.083% IH SOL 2.5 MG/3 ML VIAL.NEB. NEB SCH ×4 (08:14→20:16)
[2019-11-24] MEDS ORDERED: PT OWN MED DRAWER 7, Y5N ONE ×2 (09:33→12:16)
[2019-11-24] MEDS: PANTOPRAZOLE 40 MG TABLET PO SCH (09:56)
[2019-11-24] MEDS: methylPREDNISolone NA SUCC 40 MG/1 ML VIAL IVPUSH SCH (09:56)
[2019-11-24] MEDS: ASPIRIN 81 MG CHEWABLE TABLETS PO SCH (09:56)
[2019-11-24] MEDS: LATANOPROST 0.005% OPHTH SOLN 2.5ML BOTTLE OU SCH (09:57)
[2019-11-24] MEDS: TIOTROPIUM BROMIDE 2.5 MCG (SPIRIVA) RESPIMAT INHALER IH SCH (09:58)
[2019-11-24 10:18] LABS: ANISOCYTOSIS 1+; MACROCYTOSIS 0; PLATELET ESTIMATE NORMAL; TEAR DROP CELLS 1+
--- NOTE | 2019-11-24 11:13 | PN ---
Progress Note (short form) - Note Progress Note: feels better does not want to use BIPAP-- could not tolerate no sob no chest pain Vital Signs - 24 hr 11/23/19 11/23/19 11/23/19 14:00 16:20 18:00 Temperature 98.4 F 97.8 F Pulse Rate 84 88 Respiratory 20 19 Rate Blood Pressure 159/73 148/63 O2 Sat by Pulse 99 Oximetry (%) 11/23/19 11/23/19 11/24/19 20:06 22:00 02:00 Temperature 98.1 F 98.5 F Pulse Rate 87 84 Respiratory 20 18 Rate Blood Pressure 148/70 135/59 L O2 Sat by Pulse 93 L Oximetry (%) 11/24/19 11/24/19 05:40 08:13 Temperature 98.4 F Pulse Rate 80 Respiratory 20 Rate Blood Pressure 135/75 O2 Sat by Pulse 95 Oximetry (%) Current Medications Generic Name Dose Route Start Last Admin Trade Name Freq PRN Reason Stop Dose Admin Albuterol Sulfate 1 amp 11/22/19 11:42 Ventolin 0.083% Nebulizer Soln - NEB Q4H PRN SHORT OF BREATH/WHEEZING Albuterol Sulfate 1 amp 11/22/19 12:00 11/24/19 08:14 Ventolin 0.083% Nebulizer Soln - NEB 1 amp RQID [facility] Administration Albuterol Sulfate 2 puff 11/22/19 11:58 Ventolin Hfa Inhaler - IH Q4H PRN SHORT OF BREATH/WHEEZING Aspirin 81 mg 11/17/19 13:00 11/24/19 09:56 Asa - PO 81 mg DAILY [facility] Administration Atorvastatin Calcium 80 mg 11/17/19 22:00 11/23/19 21:27 Lipitor - PO 80 mg HS [facility] Administration Insulin Aspart 1 vial 11/16/19 22:00 11/24/19 06:17 Novolog Vial Sliding Scale - SQ 6 units ACHS [facility] Administration Protocol Insulin Detemir 20 units 11/21/19 11:57 11/24/19 06:16 Levemir Vial SQ 20 units BID@0700,2200 [facility] Administration Latanoprost 5 drop 11/18/19 10:00 11/24/19 09:57 Xalatan 0.005% Eye Drops - OU 5 drop DAILY [facility] Administration Levothyroxine Sodium 112 mcg/ 137 mcg 11/17/19 12:00 11/24/19 06:19 Levothyroxine Sodium 25 mcg PO 137 mcg DAILY@0700 [facility] Administration Methylprednisolone Sodium Succinate 40 mg 11/22/19 22:00 11/24/19 09:56 Solu-Medrol - IVPUSH 40 mg Q12H [facility] Administration Nifedipine 60 mg 11/18/19 06:00 11/24/19 06:19 Procardia Xl - PO 60 mg DAILY@0600 [facility] Administration Pantoprazole Sodium 40 mg 11/17/19 10:00 11/24/19 09:56 Protonix - PO 40 mg DAILY [facility] Administration Tiotropium [place] 2 puff 11/17/19 10:00 11/24/19 09:58 Spiriva Respimat IH 2 puff DAILY [facility] Administration Laboratory Results - last 24 hr 11/23/19 11/23/19 11/23/19 06:32 12:08 17:18 WBC RBC Hgb Hct MCV MCH MCHC RDW Plt Count MPV Absolute Neuts (auto) Neutrophils % Neutrophils % (Manual) Band Neutrophils % Lymphocytes % Lymphocytes % (Manual) Monocytes % Monocytes % (Manual) Eosinophils % Eosinophils % (Manual) Basophils % Basophils % (Manual) Myelocytes % (Man) Promyelocytes % (Man) Blast Cells % (Manual) Nucleated RBC % 0 Metamyelocytes Hypochromia Platelet Estimate Polychromasia Poikilocytosis Anisocytosis Microcytosis Macrocytosis Spherocytes Tear Drop Cells Sodium Potassium Chloride Carbon Dioxide Anion Gap BUN Creatinine Est GFR (CKD-EPI)AfAm Est GFR (CKD-EPI)NonAf POC Glucometer 197 238 Random Glucose Calcium Total Bilirubin AST ALT Alkaline Phosphatase Total Protein Albumin 11/23/19 11/24/19 11/24/19 20:49 05:49 06:00 WBC 10.5 H RBC 5.25 H Hgb 15.0 Hct 47.2 H MCV 89.9 MCH 28.6 MCHC 31.8 L RDW 16.1 H Plt Count 174 MPV 9.1 Absolute Neuts (auto) 9.9 H Neutrophils % 94.1 H Neutrophils % (Manual) 92.0 H Band Neutrophils % 1.0 Lymphocytes % 3.1 L D Lymphocytes % (Manual) 4.0 L D Monocytes % 2.3 L Monocytes % (Manual) 2 L Eosinophils % 0.1 D Eosinophils % (Manual) 0.0 Basophils % 0.4 Basophils % (Manual) 0.0 Myelocytes % (Man) 0 Promyelocytes % (Man) 0 Blast Cells % (Manual) 0 Nucleated RBC % 0 Metamyelocytes 0 D Hypochromia 0 Platelet Estimate Normal Polychromasia 2+ Poikilocytosis 1+ Anisocytosis 1+ Microcytosis 1+ Macrocytosis 0 Spherocytes 1+ Tear Drop Cells 1+ Sodium Potassium Chloride Carbon Dioxide Anion Gap BUN Creatinine Est GFR (CKD-EPI)AfAm Est GFR (CKD-EPI)NonAf POC Glucometer 244 329 Random Glucose Calcium Total Bilirubin AST ALT Alkaline Phosphatase Total Protein Albumin 11/24/19 06:00 WBC RBC Hgb Hct MCV MCH MCHC RDW Plt Count MPV Absolute Neuts (auto) Neutrophils % Neutrophils % (Manual) Band Neutrophils % Lymphocytes % Lymphocytes % (Manual) Monocytes % Monocytes % (Manual) Eosinophils % Eosinophils % (Manual) Basophils % Basophils % (Manual) Myelocytes % (Man) Promyelocytes % (Man) Blast Cells % (Manual) Nucleated RBC % Metamyelocytes Hypochromia Platelet Estimate Polychromasia Poikilocytosis Anisocytosis Microcytosis Macrocytosis Spherocytes Tear Drop Cells Sodium 139 Potassium 4.8 Chloride 98 Carbon Dioxide 38 H Anion Gap 3 L BUN 42.2 H Creatinine 1.4 H Est GFR (CKD-EPI)AfAm 43.70 Est GFR (CKD-EPI)NonAf 37.71 POC Glucometer Random Glucose 332 H Calcium 9.7 Total Bilirubin 0.4 AST 25 ALT 39 Alkaline Phosphatase 101 Total Protein 5.7 L Albumin 2.6 L S1 S2 RRR Lungs decreased breath sounds Ronchi none Abd- soft, obese edema+ A/P COPD exacerbation -- Solumedrol -- tapering -->taper to once daily -- Nebs -- O2 DM -- increase Levemir - sugars elevated due to Solumedrol Hypothyroidism -- continue with Synthroid off lasix due to elevated BUN. Creatinine for stress test-- clinically better-- should get stress test On Tuesday Problem List - Problems (1) COPD exacerbation Code(s): J44.1 - CHRONIC OBSTRUCTIVE PULMONARY DISEASE W (ACUTE) EXACERBATION (2) Acute respiratory failure with hypoxia and hypercapnia Code(s): J96.01 - ACUTE RESPIRATORY FAILURE WITH HYPOXIA; J96.02 - ACUTE RESPIRATORY FAILURE WITH HYPERCAPNIA (3) Diabetes Code(s): E11.9 - TYPE 2 DIABETES MELLITUS WITHOUT COMPLICATIONS (4) HTN (hypertension) Code(s): I10 - ESSENTIAL (PRIMARY) HYPERTENSION (5) Hypothyroidism Code(s): E03.9 - HYPOTHYROIDISM, UNSPECIFIED
--- NOTE | 2019-11-24 11:42 | PN ---
Progress Note (short form) - Note Progress Note: s: less sob, less le edema. no cp palps dizzy TELE:sr = Current Medications Generic Name Dose Route Start Last Admin Trade Name Freq PRN Reason Stop Dose Admin Albuterol Sulfate 1 amp 11/22/19 11:42 Ventolin 0.083% Nebulizer Soln - NEB Q4H PRN SHORT OF BREATH/WHEEZING Albuterol Sulfate 1 amp 11/22/19 12:00 11/24/19 11:21 Ventolin 0.083% Nebulizer Soln - NEB 1 amp RQID [facility] Administration Albuterol Sulfate 2 puff 11/22/19 11:58 Ventolin Hfa Inhaler - IH Q4H PRN SHORT OF BREATH/WHEEZING Aspirin 81 mg 11/17/19 13:00 11/24/19 09:56 Asa - PO 81 mg DAILY [facility] Administration Atorvastatin Calcium 80 mg 11/17/19 22:00 11/23/19 21:27 Lipitor - PO 80 mg HS [facility]OR Administration Insulin Aspart 1 vial 11/16/19 22:00 11/24/19 06:17 Novolog Vial Sliding Scale - SQ 6 units ACHS [facility] Administration Protocol Insulin Detemir 20 units 11/21/19 11:57 11/24/19 06:16 Levemir Vial SQ 20 units BID@0700,2200 [facility] Administration Latanoprost 5 drop 11/18/19 10:00 11/24/19 09:57 Xalatan 0.005% Eye Drops - OU 5 drop DAILY [facility] Administration Levothyroxine Sodium 112 mcg/ 137 mcg 11/17/19 12:00 11/24/19 06:19 Levothyroxine Sodium 25 mcg PO 137 mcg DAILY@0700 [facility] Administration Methylprednisolone Sodium Succinate 40 mg 11/25/19 10:00 Solu-Medrol - IVPUSH DAILY [facility] Nifedipine 60 mg 11/18/19 06:00 11/24/19 06:19 Procardia Xl - PO 60 mg DAILY@0600 [facility] Administration Pantoprazole Sodium 40 mg 11/17/19 10:00 11/24/19 09:56 Protonix - PO 40 mg DAILY [facility] Administration Tiotropium [place] 2 puff 11/17/19 10:00 11/24/19 09:58 Spiriva Respimat IH 2 puff DAILY [facility] Administration Vital Signs Period Temp Pulse Resp BP Sys/Saeed Pulse Ox Last 24 Hr 97.8 F-98.5 F 80-88 18-20 135-159/59-75 93-99 = Constitutional: Yes: No Distress Cardiovascular: Yes: Regular Rate and Rhythm Respiratory: Yes: Other (b/l rhonci and mild expiratory wheezing) Gastrointestinal: Yes: Soft Edema: trace Neurological: Yes: Alert, Oriented no jaundice diaphoresis Labs: = CBC, BMP 11/24/19 06:00 11/24/19 06:00 Assessment/Plan EKG: sinus, nl intervals, no ischemic changes CXR: no acute process COPD exacerbation, shortness of breath: - manage per pulm elevated trop, likely due to mild acute on chronic diastolic CHF: - no ischemia on EKG, trop 0.14->0.8->0.5 - likely demand in setting of COPD exacerbation (Type II) - no angina sx's - pedal edema persists, likely iv steroids contributing. has been getting iv lasix but bun/cr rising now, will dc lasix for now. Follow renal fx closely - echo with normal LVEF - per Dr. 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
--- NOTE | 2019-11-24 15:46 | PN ---
Progress Note (short form) - Note Progress Note: PULMONARY States breathing continues to improve. Less cough and wheezing. Vital Signs Period Temp Pulse Resp BP Sys/Saeed Pulse Ox Last 24 Hr 97.8 F-98.5 F 80-88 18-20 135-148/59-75 93-99 Gen: NAD at rest Heart: RRR Lung: decreased breath sounds at the bases Abd: soft, nontender Ext: + edema CBC, BMP 11/24/19 06:00 11/24/19 06:00 Active Medications Albuterol Sulfate (Ventolin 0.083% Nebulizer Soln -) 1 amp NEB Q4H PRN PRN Reason: SHORT OF BREATH/WHEEZING Albuterol Sulfate (Ventolin 0.083% Nebulizer Soln -) 1 amp NEB RQID [facility] Last Admin: 11/24/19 11:21 Dose: 1 amp Albuterol Sulfate (Ventolin Hfa Inhaler -) 2 puff IH Q4H PRN PRN Reason: SHORT OF BREATH/WHEEZING Aspirin (Asa -) 81 mg PO DAILY [facility] Last Admin: 11/24/19 09:56 Dose: 81 mg Atorvastatin Calcium (Lipitor -) 80 mg PO HS [facility] Last Admin: 11/23/19 21:27 Dose: 80 mg Insulin Aspart (Novolog Vial Sliding Scale -) 1 vial SQ [facility]; Protocol Last Admin: 11/24/19 11:43 Dose: 6 units Insulin Detemir (Levemir Vial) 20 units SQ BID@0700,2200 [facility] Last Admin: 11/24/19 06:16 Dose: 20 units Latanoprost (Xalatan 0.005% Eye Drops -) 5 drop OU DAILY [facility] Last Admin: 11/24/19 09:57 Dose: 5 drop Levothyroxine Sodium 112 mcg/ (Levothyroxine Sodium 25 mcg) 137 mcg PO DAILY@ 0700 [facility] Last Admin: 11/24/19 06:19 Dose: 137 mcg Methylprednisolone Sodium Succinate (Solu-Medrol -) 40 mg IVPUSH DAILY [facility] Nifedipine (Procardia Xl -) 60 mg PO DAILY@0600 [facility] Last Admin: 11/24/19 06:19 Dose: 60 mg Pantoprazole Sodium (Protonix -) 40 mg PO DAILY [facility] Last Admin: 11/24/19 09:56 Dose: 40 mg Tiotropium [place] (Spiriva Respimat) 2 puff IH DAILY [facility] Last Admin: 11/24/19 09:58 Dose: 2 puff A/P Acute COPD Exacerbation +Troponins likely Demand Ischemia HTN DM Hyperlipidemia Hypothyroidism - medrol taper - inhaled bronchodilators - O2 to keep SpO2 >90% - DVT prophylaxis - outpt PFTs
[2019-11-24] MEDS: ATORVASTATIN CA 80 MG TABLET (FP) PO SCH (22:01)
[2019-11-25] MEDS ORDERED: LEVOTHYROXINE NA 112 MCG TABLET (FP) ONE (05:59)
[2019-11-25] MEDS ORDERED: LEVOTHYROXINE NA 25 MCG TABLET (FP) ONE (05:59)
[2019-11-25] MEDS: INSULIN SLIDING SCALE (NOVOLOG) 1 VIAL SQ SCH ×4 (06:27→21:39)
[2019-11-25] MEDS: INSULIN (LEVEMIR) 100 UNITS/ML UNITS SQ SCH ×2 (06:27→21:38)
[2019-11-25] MEDS: LEVOTHYROXINE 112 MCG, LEVOTHYROXINE 25 MCG PO SCH (06:27)
[2019-11-25] MEDS: NIFEdipine E.R 60 MG TABLET PO SCH (06:27)
[2019-11-25] MEDS: ALBUTEROL SO4 0.083% IH SOL 2.5 MG/3 ML VIAL.NEB. NEB SCH ×4 (08:08→19:50)
--- NOTE | 2019-11-25 08:50 | PN ---
Progress Note (short form) - Note Progress Note: feels better no complaints sugars elevated-- eats too much sugary foods Vital Signs - 24 hr 11/25/19 11/25/19 11/25/19 01:00 05:44 07:46 Temperature 98.1 F 98.5 F 98.8 F Pulse Rate 85 77 80 Respiratory 18 20 18 Rate Blood Pressure 153/79 158/74 129/70 O2 Sat by Pulse Oximetry (%) 11/25/19 11/25/19 11/25/19 08:07 09:00 13:41 Temperature 98.0 F Pulse Rate 81 Respiratory 18 Rate Blood Pressure 140/73 O2 Sat by Pulse 98 95 Oximetry (%) 11/25/19 11/25/19 15:44 17:35 Temperature 98.2 F Pulse Rate 88 Respiratory 18 Rate Blood Pressure 153/85 O2 Sat by Pulse 98 Oximetry (%) Current Medications Generic Name Dose Route Start Last Admin Trade Name Freq PRN Reason Stop Dose Admin Albuterol Sulfate 1 amp 11/22/19 11:42 Ventolin 0.083% Nebulizer Soln - NEB Q4H PRN SHORT OF BREATH/WHEEZING Albuterol Sulfate 1 amp 11/22/19 12:00 11/25/19 15:44 Ventolin 0.083% Nebulizer Soln - NEB Not Given RQID [facility] Albuterol Sulfate 2 puff 11/22/19 11:58 Ventolin Hfa Inhaler - IH Q4H PRN SHORT OF BREATH/WHEEZING Aspirin 81 mg 11/17/19 13:00 11/25/19 09:28 Asa - PO 81 mg DAILY [facility] Administration Atorvastatin Calcium 80 mg 11/17/19 22:00 11/24/19 22:01 Lipitor - PO 80 mg HS [facility]OR Administration Insulin Aspart 1 vial 11/16/19 22:00 11/25/19 16:48 Novolog Vial Sliding Scale - SQ 6 units ACHS [facility] Administration Protocol Insulin Detemir 20 units 11/21/19 11:57 11/25/19 06:27 Levemir Vial SQ 20 units BID@0700,2200 [facility] Administration Latanoprost 5 drop 11/18/19 10:00 11/25/19 09:29 Xalatan 0.005% Eye Drops - OU 5 drop DAILY [facility] Administration Levothyroxine Sodium 112 mcg/ 137 mcg 11/17/19 12:00 11/25/19 06:27 Levothyroxine Sodium 25 mcg PO 137 mcg DAILY@0700 [facility] Administration Methylprednisolone Sodium Succinate 40 mg 11/25/19 10:00 11/25/19 09:28 Solu-Medrol - IVPUSH 40 mg DAILY [facility] Administration Nifedipine 60 mg 11/18/19 06:00 11/25/19 06:27 Procardia Xl - PO 60 mg DAILY@0600 [facility] Administration Pantoprazole Sodium 40 mg 11/17/19 10:00 11/25/19 09:28 Protonix - PO 40 mg DAILY [facility] Administration Tiotropium [place] 2 puff 11/17/19 10:00 11/25/19 09:29 Spiriva Respimat IH 2 puff DAILY [facility] Administration Laboratory Results - last 24 hr 11/24/19 11/25/19 11/25/19 20:29 05:54 11:54 POC Glucometer 293 214 179 11/25/19 16:44 POC Glucometer 330 S1 S2 RRR Lungs decreased breath sounds Ronchi none Abd- soft, obese edema+ A/P COPD exacerbation -- Solumedrol -- tapering -->taper to once daily --prednisone in AM -- Nebs -- O2 DM -- increase Levemir - sugars elevated due to Solumedrol, also dietary non compliance -- nutrition eval Hypothyroidism -- continue with Synthroid off lasix due to elevated BUN. Creatinine for stress test-- clinically better-- should get stress test On Tuesday Problem List - Problems (1) COPD exacerbation Code(s): J44.1 - CHRONIC OBSTRUCTIVE PULMONARY DISEASE W (ACUTE) EXACERBATION (2) Acute respiratory failure with hypoxia and hypercapnia Code(s): J96.01 - ACUTE RESPIRATORY FAILURE WITH HYPOXIA; J96.02 - ACUTE RESPIRATORY FAILURE WITH HYPERCAPNIA (3) Diabetes Code(s): E11.9 - TYPE 2 DIABETES MELLITUS WITHOUT COMPLICATIONS (4) HTN (hypertension) Code(s): I10 - ESSENTIAL (PRIMARY) HYPERTENSION (5) Hypothyroidism Code(s): E03.9 - HYPOTHYROIDISM, UNSPECIFIED
[2019-11-25] MEDS: PANTOPRAZOLE 40 MG TABLET PO SCH (09:28)
[2019-11-25] MEDS: ASPIRIN 81 MG CHEWABLE TABLETS PO SCH (09:28)
[2019-11-25] MEDS: LATANOPROST 0.005% OPHTH SOLN 2.5ML BOTTLE OU SCH (09:29)
[2019-11-25] MEDS: TIOTROPIUM BROMIDE 2.5 MCG (SPIRIVA) RESPIMAT INHALER IH SCH (09:29)
[2019-11-25] MEDS ORDERED: methylPREDNISolone NA SUCC 40 MG/1 ML VIAL IVPUSH SCH (10:00)
--- NOTE | 2019-11-25 10:07 | PN ---
Progress Note (short form) - Note Progress Note: s: less sob, less le edema. no cp palps dizzy TELE:sr, occ pvcs Current Medications Generic Name Dose Route Start Last Admin Trade Name Freq PRN Reason Stop Dose Admin Albuterol Sulfate 1 amp 11/22/19 11:42 Ventolin 0.083% Nebulizer Soln - NEB Q4H PRN SHORT OF BREATH/WHEEZING Albuterol Sulfate 1 amp 11/22/19 12:00 11/25/19 08:08 Ventolin 0.083% Nebulizer Soln - NEB 1 amp RQID [facility]OR Administration Albuterol Sulfate 2 puff 11/22/19 11:58 Ventolin Hfa Inhaler - IH Q4H PRN SHORT OF BREATH/WHEEZING Aspirin 81 mg 11/17/19 13:00 11/25/19 09:28 Asa - PO 81 mg DAILY [facility] Administration Atorvastatin Calcium 80 mg 11/17/19 22:00 11/24/19 22:01 Lipitor - PO 80 mg HS [facility] Administration Insulin Aspart 1 vial 11/16/19 22:00 11/25/19 06:27 Novolog Vial Sliding Scale - SQ 2 units ACHS [facility] Administration Protocol Insulin Detemir 20 units 11/21/19 11:57 11/25/19 06:27 Levemir Vial SQ 20 units BID@0700,2200 [facility] Administration Latanoprost 5 drop 11/18/19 10:00 11/25/19 09:29 Xalatan 0.005% Eye Drops - OU 5 drop DAILY [facility] Administration Levothyroxine Sodium 112 mcg/ 137 mcg 11/17/19 12:00 11/25/19 06:27 Levothyroxine Sodium 25 mcg PO 137 mcg DAILY@0700 [facility] Administration Methylprednisolone Sodium Succinate 40 mg 11/25/19 10:00 11/25/19 09:28 Solu-Medrol - IVPUSH 40 mg DAILY [facility] Administration Nifedipine 60 mg 11/18/19 06:00 11/25/19 06:27 Procardia Xl - PO 60 mg DAILY@0600 [facility] Administration Pantoprazole Sodium 40 mg 11/17/19 10:00 11/25/19 09:28 Protonix - PO 40 mg DAILY [facility] Administration Tiotropium [place] 2 puff 11/17/19 10:00 11/25/19 09:29 Spiriva Respimat IH 2 puff DAILY [facility] Administration Vital Signs Period Temp Pulse Resp BP Sys/Saeed Pulse Ox Last 24 Hr 98.0 F-98.8 F 77-87 18-20 129-159/70-80 93-98 Constitutional: Yes: No Distress Cardiovascular: Yes: Regular Rate and Rhythm Respiratory: Yes: cta bl nl eff Gastrointestinal: Yes: Soft Edema: trace Neurological: Yes: Alert, Oriented no jaundice diaphoresis Labs: = CBC, BMP 11/24/19 06:00 11/24/19 06:00 Assessment/Plan EKG: sinus, nl intervals, no ischemic changes CXR: no acute process COPD exacerbation, shortness of breath: - manage per pulm elevated trop, likely due to mild acute on chronic diastolic CHF: - no ischemia on EKG, trop 0.14->0.8->0.5 - likely demand in setting of COPD exacerbation (Type II) - no angina sx's - pedal edema improved as steroids tapered, monitor off diuretic for now - echo with normal LVEF - per Dr. Mancia d/w market stall vendor Dr Valentino weiner for antiplatelet - started on aspirin 81 mg daily and continue hi intensity statin (atorva 80) - plan for ischemic eval with mibi when stable, will plan for nuclear stress test for tuesday DM - manage per primary HTN - cont home meds hypothyroidism - manage per primary PSVT -short self limited episodes in setting albuterol and steroids
--- NOTE | 2019-11-25 13:39 | PN ---
Progress Note (short form) - Note Progress Note: PULMONARY States breathing continues to improve. Less cough and wheezing. Vital Signs Period Temp Pulse Resp BP Sys/Saeed Pulse Ox Last 24 Hr 98.0 F-98.8 F 77-87 18-20 129-159/70-80 93-98 Gen: NAD at rest Heart: RRR Lung: decreased breath sounds at the bases Abd: soft, nontender Ext: + edema CBC, BMP 11/24/19 06:00 11/24/19 06:00 Active Medications Albuterol Sulfate (Ventolin 0.083% Nebulizer Soln -) 1 amp NEB Q4H PRN PRN Reason: SHORT OF BREATH/WHEEZING Albuterol Sulfate (Ventolin 0.083% Nebulizer Soln -) 1 amp NEB RQID [facility] Last Admin: 11/25/19 11:28 Dose: Not Given Albuterol Sulfate (Ventolin Hfa Inhaler -) 2 puff IH Q4H PRN PRN Reason: SHORT OF BREATH/WHEEZING Aspirin (Asa -) 81 mg PO DAILY [facility] Last Admin: 11/25/19 09:28 Dose: 81 mg Atorvastatin Calcium (Lipitor -) 80 mg PO HS [facility] Last Admin: 11/24/19 22:01 Dose: 80 mg Insulin Aspart (Novolog Vial Sliding Scale -) 1 vial SQ [facility]; Protocol Last Admin: 11/25/19 11:55 Dose: 1 units Insulin Detemir (Levemir Vial) 20 units SQ BID@0700,2200 [facility] Last Admin: 11/25/19 06:27 Dose: 20 units Latanoprost (Xalatan 0.005% Eye Drops -) 5 drop OU DAILY [facility] Last Admin: 11/25/19 09:29 Dose: 5 drop Levothyroxine Sodium 112 mcg/ (Levothyroxine Sodium 25 mcg) 137 mcg PO DAILY@ 0700 [facility] Last Admin: 11/25/19 06:27 Dose: 137 mcg Methylprednisolone Sodium Succinate (Solu-Medrol -) 40 mg IVPUSH DAILY [facility] Last Admin: 11/25/19 09:28 Dose: 40 mg Nifedipine (Procardia Xl -) 60 mg PO DAILY@0600 [facility] Last Admin: 11/25/19 06:27 Dose: 60 mg Pantoprazole Sodium (Protonix -) 40 mg PO DAILY [facility] Last Admin: 01/19/20 09:28 Dose: 40 mg Tiotropium [place] (Spiriva Respimat) 2 puff IH DAILY [facility] Last Admin: 11/25/19 09:29 Dose: 2 puff A/P Acute COPD Exacerbation +Troponins likely Demand Ischemia HTN DM Hyperlipidemia Hypothyroidism - medrol taper - inhaled bronchodilators - O2 to keep SpO2 >90% - DVT prophylaxis - outpt PFTs
[2019-11-25] MEDS: ATORVASTATIN CA 80 MG TABLET (FP) PO SCH (21:39)
[2019-11-26] MEDS ORDERED: LEVOTHYROXINE NA 25 MCG TABLET (FP) ONE (06:08)
[2019-11-26] MEDS ORDERED: LEVOTHYROXINE NA 112 MCG TABLET (FP) ONE (06:08)
[2019-11-26] MEDS: INSULIN (LEVEMIR) 100 UNITS/ML UNITS SQ SCH ×2 (06:18→22:15)
[2019-11-26] MEDS: NIFEdipine E.R 60 MG TABLET PO SCH (06:18)
[2019-11-26] MEDS: LEVOTHYROXINE 112 MCG, LEVOTHYROXINE 25 MCG PO SCH (06:19)
[2019-11-26] MEDS: INSULIN SLIDING SCALE (NOVOLOG) 1 VIAL SQ SCH ×4 (06:19→22:14)
[2019-11-26] MEDS ORDERED: REGADENOSON 0.4 MG/5 ML PRE-FILLED SYRINGE IVPUSH ONE ×2 (09:30→10:11)
--- NOTE | 2019-11-26 11:56 | PN ---
Progress Note (short form) - Note Progress Note: s: less sob, less le edema. no cp palps dizzy TELE:sr, occ pvcs Current Medications Generic Name Dose Route Start Last Admin Trade Name Freq PRN Reason Stop Dose Admin Albuterol Sulfate 1 amp 11/22/19 11:42 Ventolin 0.083% Nebulizer Soln - NEB Q4H PRN SHORT OF BREATH/WHEEZING Albuterol Sulfate 2 puff 11/22/19 11:58 Ventolin Hfa Inhaler - IH Q4H PRN SHORT OF BREATH/WHEEZING Aspirin 81 mg 11/17/19 13:00 11/25/19 09:28 Asa - PO 81 mg DAILY [facility] Administration Atorvastatin Calcium 80 mg 11/17/19 22:00 11/25/19 21:39 Lipitor - PO 80 mg HS [facility] Administration Insulin Aspart 1 vial 11/16/19 22:00 11/26/19 06:19 Novolog Vial Sliding Scale - SQ Not Given ACHS [facility] Protocol Insulin Detemir 20 units 11/21/19 11:57 11/26/19 06:18 Levemir Vial SQ 20 units BID@0700,2200 [facility] Administration Latanoprost 5 drop 11/18/19 10:00 11/25/19 09:29 Xalatan 0.005% Eye Drops - OU 5 drop DAILY [facility] Administration Levothyroxine Sodium 112 mcg/ 137 mcg 11/17/19 12:00 11/26/19 06:19 Levothyroxine Sodium 25 mcg PO 137 mcg DAILY@0700 [facility] Administration Nifedipine 60 mg 11/18/19 06:00 11/26/19 06:18 Procardia Xl - PO 60 mg DAILY@0600 [facility] Administration Pantoprazole Sodium 40 mg 11/17/19 10:00 11/25/19 09:28 Protonix - PO 40 mg DAILY [facility] Administration Prednisone 40 mg 11/26/19 10:00 Deltasone - PO DAILY [facility] Tiotropium [place] 2 puff 11/17/19 10:00 11/25/19 09:29 Spiriva Respimat IH 2 puff DAILY [facility] Administration Vital Signs Period Temp Pulse Resp BP Sys/Saeed Pulse Ox Last 24 Hr 98.0 F-98.5 F 78-88 16-18 116-155/60-85 98-100 Constitutional: Yes: No Distress Cardiovascular: Yes: Regular Rate and Rhythm Respiratory: Yes: cta bl nl eff Gastrointestinal: Yes: Soft Edema: trace Neurological: Yes: Alert, Oriented no jaundice diaphoresis Labs: CBC, BMP 11/24/19 06:00 11/24/19 06:00 Assessment/Plan EKG: sinus, nl intervals, no ischemic changes CXR: no acute process COPD exacerbation, shortness of breath: - manage per pulm elevated trop, likely due to mild acute on chronic diastolic CHF: - no ischemia on EKG, trop 0.14->0.8->0.5 - likely demand in setting of COPD exacerbation (Type II) - no angina sx's - pedal edema improved as steroids tapered, monitor off diuretic for now - echo with normal LVEF - per Dr. Mancia d/w cause analyst Dr Avelar - husam for antiplatelet - started on aspirin 81 mg daily and continue hi intensity statin (atorva 80) - if todays nuclear stress test is unremarkable then ok for dc from cardiac pov DM - manage per primary HTN - cont home meds hypothyroidism - manage per primary PSVT -short self limited episodes in setting albuterol and steroids
[2019-11-26] MEDS: predniSONE 20 MG TABLET (UD) PO SCH (12:17)
[2019-11-26] MEDS: PANTOPRAZOLE 40 MG TABLET PO SCH (12:17)
[2019-11-26] MEDS: LATANOPROST 0.005% OPHTH SOLN 2.5ML BOTTLE OU SCH (12:18)
[2019-11-26] MEDS: ASPIRIN 81 MG CHEWABLE TABLETS PO SCH (12:18)
[2019-11-26] MEDS: TIOTROPIUM BROMIDE 2.5 MCG (SPIRIVA) RESPIMAT INHALER IH SCH (12:18)
--- NOTE | 2019-11-26 13:04 | DS ---
Physical Examination Vital Signs: Vital Signs Temperature 98.5 F 11/26/19 08:00 Pulse Rate 78 11/26/19 08:00 Respiratory Rate 16 11/26/19 08:00 Blood Pressure 116/60 11/26/19 08:00 O2 Sat by Pulse Oximetry (%) 100 11/25/19 20:45 Findings/Remarks: feels well no complains Constitutional: Yes: No Distress, Calm Eyes: Yes: Conjunctiva Clear Neck: Yes: Supple Cardiovascular: Yes: Regular Rate and Rhythm Respiratory: Yes: Diminished Gastrointestinal: Yes: Abdomen, Obese Edema: LLE: Trace, RLE: Trace Neurological: Yes: Alert Psychiatric: Yes: Alert Labs: CBC, BMP 11/24/19 06:00 11/24/19 06:00 Discharge Summary Problems reviewed: Yes Reason For Visit: CHRONIC OBSTRUCTIVE PULMONARY DISEASE Current Active Problems COPD exacerbation (Acute) Retinopathy (Acute) Hospital Course: Admitted for copd exac and demand ischemia treated with steroids Pulmonary and cardiology followed BGM was also high due to steroids and non compliance Better Stress test-- Mild reversible - Medical Management Stable for d/c pt has home oxygen Compliance stressed/ Diabetic teaching Meds reconcilled f/u in office one week Pt in agreement F/u with cardio and pulmonary as advised Condition: Stable - Instructions Referrals: Angy Cullen MD [Primary Care Provider] - Disposition: HOME - Home Medications Comprehensive Discharge Medication List: Ambulatory Orders Brinzolamide/Brimonidine Tart [Simbrinza 1%-0.2% Eye Drops] 8 ml OP DAILY Dulaglutide [Trulicity] 1.5 mg SQ WEEKLY 03/05/19 Levothyroxine Sodium [Synthroid] 137 mcg PO DAILY 03/05/19 Sitagliptin Phos/Metformin HCl [Janumet 50-1,000 mg Tablet] 1 each PO DAILY Travoprost [Travatan Z] 5 ml OP DAILY 03/05/19 Albuterol 0.083% Nebulizer Anayeli [Ventolin 0.083% Nebulizer Soln -] 1 neb NEB Q6H #60 vial 03/13/19 Nifedipine ER [Procardia XL -] 60 mg PO DAILY@0600 #30 tab.er.24 03/13/19 Albuterol 0.083% Nebulizer Anayeli [Ventolin 0.083% Nebulizer Soln -] 1 amp NEB RQID amp 11/26/19 Aspirin [ASA -] 81 mg PO DAILY tab.chew 11/26/19 Atorvastatin Ca [Lipitor] 80 mg PO HS tablet 11/26/19 Latanoprost 0.005% Eye Drops [Xalatan 0.005% Eye Drops -] 5 drop OU DAILY drops 11/26/19 Pantoprazole Sodium [Protonix -] 40 mg PO DAILY #30 tablet.ec 11/26/19 predniSONE [Deltasone -] 20 mg PO DAILY #10 tablet 11/26/19
[2019-11-26] MEDS: ATORVASTATIN CA 80 MG TABLET (FP) PO SCH (22:12)
[2019-11-27] MEDS ORDERED: LEVOTHYROXINE NA 25 MCG TABLET (FP) ONE (06:37)
[2019-11-27] MEDS ORDERED: LEVOTHYROXINE NA 112 MCG TABLET (FP) ONE (06:38)
[2019-11-27] MEDS: LEVOTHYROXINE 112 MCG, LEVOTHYROXINE 25 MCG PO SCH (06:40)
[2019-11-27] MEDS: NIFEdipine E.R 60 MG TABLET PO SCH (06:40)
[2019-11-27] MEDS: INSULIN SLIDING SCALE (NOVOLOG) 1 VIAL SQ SCH ×2 (06:45→11:44)
[2019-11-27] MEDS: INSULIN (LEVEMIR) 100 UNITS/ML UNITS SQ SCH (06:46)
[2019-11-27 08:57] VITALS: BP 136/63; PULSE 79; TEMP 98.5
[2019-11-27] MEDS: predniSONE 20 MG TABLET (UD) PO SCH (10:38)
[2019-11-27] MEDS: PANTOPRAZOLE 40 MG TABLET PO SCH (10:39)
[2019-11-27] MEDS: ASPIRIN 81 MG CHEWABLE TABLETS PO SCH (10:39)
[2019-11-27] MEDS: TIOTROPIUM BROMIDE 2.5 MCG (SPIRIVA) RESPIMAT INHALER IH SCH (10:39)
[2019-11-27] MEDS: LATANOPROST 0.005% OPHTH SOLN 2.5ML BOTTLE OU SCH (10:39)
--- NOTE | 2019-11-27 11:14 | PN ---
Progress Note (short form) - Note Progress Note: OOB to chair on O2. Cough and breathing seem overall better. No acute events overnight. Intake & Output 11/24/19 11/25/19 11/26/19 11/27/19 23:59 23:59 23:59 23:59 Intake Total 1250 900 660 360 Balance 1250 900 660 360 Last Vital Signs Temp Pulse Resp BP Pulse Ox 98.5 F 79 16 136/63 94 L 11/27/19 08:56 11/27/19 08:56 11/27/19 08:56 11/27/19 08:56 11/26/19 20:19 Active Medications Albuterol Sulfate (Ventolin 0.083% Nebulizer Soln -) 1 amp NEB Q4H PRN PRN Reason: SHORT OF BREATH/WHEEZING Albuterol Sulfate (Ventolin Hfa Inhaler -) 2 puff IH Q4H PRN PRN Reason: SHORT OF BREATH/WHEEZING Aspirin (Asa -) 81 mg PO DAILY [facility] Last Admin: 11/27/19 10:39 Dose: 81 mg Atorvastatin Calcium (Lipitor -) 80 mg PO HS [facility] Last Admin: 11/26/19 22:12 Dose: 80 mg Insulin Aspart (Novolog Vial Sliding Scale -) 1 vial SQ [facility]; Protocol Last Admin: 11/27/19 06:45 Dose: 1 units Insulin Detemir (Levemir Vial) 20 units SQ BID@0700,2200 [facility] Last Admin: 11/27/19 06:46 Dose: 20 units Latanoprost (Xalatan 0.005% Eye Drops -) 5 drop OU DAILY [facility] Last Admin: 11/27/19 10:39 Dose: 5 drop Levothyroxine Sodium 112 mcg/ (Levothyroxine Sodium 25 mcg) 137 mcg PO DAILY@ 0700 [facility] Last Admin: 11/27/19 06:40 Dose: 137 mcg Nifedipine (Procardia Xl -) 60 mg PO DAILY@0600 [facility] Last Admin: 11/27/19 06:40 Dose: 60 mg Pantoprazole Sodium (Protonix -) 40 mg PO DAILY [facility] Last Admin: 11/27/19 10:39 Dose: 40 mg Prednisone (Deltasone -) 40 mg PO DAILY [facility] Last Admin: 11/27/19 10:38 Dose: 40 mg Tiotropium Novi (Spiriva Respimat) 2 puff IH DAILY [facility] Last Admin: 11/27/19 10:39 Dose: 2 puff Gen: NAD at rest Heart: RRR Lung: scattered rhonchi, No wheezes appreciated Abd: soft, nontender Ext: + edema A/P Acute COPD Exacerbation +Troponins likely Demand Ischemia HTN DM Hyperlipidemia Hypothyroidism High suspicion of OSAS - Prednisone 40mg daily x 5 days if DC Home is anticipated. Patient has home O2 already. - inhaled bronchodilators - O2 to keep SpO2 >90% - DVT prophylaxis - outpt PFTs - Outpatient sleep testing - No smoking There is no Pulmonary contraindication for DC Dr Birch
--- NOTE | 2019-11-27 11:52 | PN ---
Progress Note (short form) - Note Progress Note: s: edema, sob improved. no cp palps dizzy TELE:sr, occ pvcs Current Medications Albuterol Sulfate (Ventolin 0.083% Nebulizer Soln -) 1 amp NEB Q4H PRN PRN Reason: SHORT OF BREATH/WHEEZING Albuterol Sulfate (Ventolin Hfa Inhaler -) 2 puff IH Q4H PRN PRN Reason: SHORT OF BREATH/WHEEZING Aspirin (Asa -) 81 mg PO DAILY [facility] Last Admin: 11/27/19 10:39 Dose: 81 mg Atorvastatin Calcium (Lipitor -) 80 mg PO HS [facility] Last Admin: 11/26/19 22:12 Dose: 80 mg Insulin Aspart (Novolog Vial Sliding Scale -) 1 vial SQ [facility]; Protocol Last Admin: 11/27/19 11:44 Dose: Not Given Insulin Detemir (Levemir Vial) 20 units SQ BID@0700,2200 [facility] Last Admin: 11/27/19 06:46 Dose: 20 units Latanoprost (Xalatan 0.005% Eye Drops -) 5 drop OU DAILY [facility] Last Admin: 11/27/19 10:39 Dose: 5 drop Levothyroxine Sodium 112 mcg/ (Levothyroxine Sodium 25 mcg) 137 mcg PO DAILY@ 0700 [facility] Last Admin: 11/27/19 06:40 Dose: 137 mcg Nifedipine (Procardia Xl -) 60 mg PO DAILY@0600 [facility] Last Admin: 11/27/19 06:40 Dose: 60 mg Pantoprazole Sodium (Protonix -) 40 mg PO DAILY [facility] Last Admin: 11/27/19 10:39 Dose: 40 mg Prednisone (Deltasone -) 40 mg PO DAILY [facility] Last Admin: 11/27/19 10:38 Dose: 40 mg Tiotropium Mcd[place]iels (Spiriva Respimat) 2 puff IH DAILY [facility] Last Admin: 11/27/19 10:39 Dose: 2 puff Vital Signs Period Temp Pulse Resp BP Sys/Saeed Pulse Ox Last 24 Hr 97.9 F-98.5 F 77-92 16-18 136-161/63-82 92-94 Constitutional: Yes: No Distress Cardiovascular: Yes: Regular Rate and Rhythm Respiratory: Yes: cta bl nl eff Gastrointestinal: Yes: Soft Edema: trace Neurological: Yes: Alert, Oriented no jaundice diaphoresis Assessment/Plan EKG: sinus, nl intervals, no ischemic changes CXR: no acute process COPD exacerbation, shortness of breath: - manage per pulm elevated trop, likely due to mild acute on chronic diastolic CHF: - no ischemia on EKG, trop 0.14->0.8->0.5 - likely demand in setting of COPD exacerbation (Type II) - no angina sx's - pedal edema improved as steroids tapered, monitor off diuretic for now - echo with normal LVEF - per Dr. Mancia d/w tank shop supervisor Dr Valenitno weiner for antiplatelet - started on aspirin 81 mg daily and continue hi intensity statin (atorva 80) - mibi here showed mild inferolateral ischemia, a low risk finding. - Continue med rx with asa, statin, bp control as doing, outpatient follow up with Dr. Nelson - stable for dc from cardiac perspective DM - manage per primary HTN - cont home meds hypothyroidism - manage per primary PSVT -short self limited episodes in setting albuterol and steroids
--- NOTE | 2019-11-27 12:05 | PN ---
Progress Note (short form) - Note Progress Note: feels better no complaints 2 Vital Signs - 24 hr 11/26/19 11/26/19 11/26/19 14:59 18:00 20:19 Temperature 97.9 F Pulse Rate 92 H 83 Respiratory 17 Rate Blood Pressure 149/74 O2 Sat by Pulse 92 L 94 L Oximetry (%) 11/26/19 11/27/19 11/27/19 22:00 02:00 06:00 Temperature 98.2 F 97.9 F 98.2 F Pulse Rate 89 79 77 Respiratory 16 18 16 Rate Blood Pressure 152/77 161/80 148/82 O2 Sat by Pulse Oximetry (%) 11/27/19 08:56 Temperature 98.5 F Pulse Rate 79 Respiratory 16 Rate Blood Pressure 136/63 O2 Sat by Pulse Oximetry (%) Current Medications Generic Name Dose Route Start Last Admin Trade Name Freq PRN Reason Stop Dose Admin Albuterol Sulfate 1 amp 11/22/19 11:42 Ventolin 0.083% Nebulizer Soln - NEB Q4H PRN SHORT OF BREATH/WHEEZING Albuterol Sulfate 2 puff 11/22/19 11:58 Ventolin Hfa Inhaler - IH Q4H PRN SHORT OF BREATH/WHEEZING Aspirin 81 mg 11/17/19 13:00 11/27/19 10:39 Asa - PO 81 mg DAILY [facility] Administration Atorvastatin Calcium 80 mg 11/17/19 22:00 11/26/19 22:12 Lipitor - PO 80 mg HS [facility] Administration Insulin Aspart 1 vial 11/16/19 22:00 11/27/19 11:44 Novolog Vial Sliding Scale - SQ Not Given ACHS [facility] Protocol Insulin Detemir 20 units 11/21/19 11:57 11/27/19 06:46 Levemir Vial SQ 20 units BID@0700,2200 [facility] Administration Latanoprost 5 drop 11/18/19 10:00 11/27/19 10:39 Xalatan 0.005% Eye Drops - OU 5 drop DAILY [facility] Administration Levothyroxine Sodium 112 mcg/ 137 mcg 11/17/19 12:00 11/27/19 06:40 Levothyroxine Sodium 25 mcg PO 137 mcg DAILY@0700 [facility] Administration Nifedipine 60 mg 11/18/19 06:00 11/27/19 06:40 Procardia Xl - PO 60 mg DAILY@0600 [facility] Administration Pantoprazole Sodium 40 mg 11/17/19 10:00 11/27/19 10:39 Protonix - PO 40 mg DAILY [facility] Administration Prednisone 40 mg 11/26/19 10:00 11/27/19 10:38 Deltasone - PO 40 mg DAILY [facility] Administration Tiotropium [place] 2 puff 11/17/19 10:00 11/27/19 10:39 Spiriva Respimat IH 2 puff DAILY [facility] Administration Laboratory Results - last 24 hr 11/26/19 11/26/19 11/27/19 17:01 22:11 06:44 POC Glucometer 209 226 167 11/27/19 11:44 POC Glucometer 86 S1 S2 RRR Lungs decreased breath sounds Ronchi none Abd- soft, obese edema+ A/P COPD exacerbation -- Solumedrol -- tapering -->taper to once daily --prednisone in AM -- Nebs -- O2 DM -- increase Levemir - sugars elevated due to Solumedrol, also dietary non compliance -- nutrition eval Hypothyroidism -- continue with Synthroid off lasix due to elevated BUN. Creatinine stress test--negative stable for sc home Problem List - Problems (1) COPD exacerbation Code(s): J44.1 - CHRONIC OBSTRUCTIVE PULMONARY DISEASE W (ACUTE) EXACERBATION (2) Acute respiratory failure with hypoxia and hypercapnia Code(s): J96.01 - ACUTE RESPIRATORY FAILURE WITH HYPOXIA; J96.02 - ACUTE RESPIRATORY FAILURE WITH HYPERCAPNIA (3) Diabetes Code(s): E11.9 - TYPE 2 DIABETES MELLITUS WITHOUT COMPLICATIONS (4) HTN (hypertension) Code(s): I10 - ESSENTIAL (PRIMARY) HYPERTENSION (5) Hypothyroidism Code(s): E03.9 - HYPOTHYROIDISM, UNSPECIFIED
== END 2019-11-27 15:02 | disposition home or self-care (01) | DRG 189 ==
LOC: JER 15:12 → JERBED 17:54 → J4S 11-17 06:13
PROVIDERS: ADMIT Internal Medicine; ATTEND Internal Medicine
DX: J96.21 Acute and chronic respiratory failure with hypoxia (principal); I50.33 Acute on chronic diastolic (congestive) heart failure; J44.1 Chronic obstructive pulmonary disease with (acute) exacerbation; I47.1 Supraventricular tachycardia; I24.8 Other forms of acute ischemic heart disease; J96.22 Acute and chronic respiratory failure with hypercapnia; E03.9 Hypothyroidism, unspecified; E11.65 Type 2 diabetes mellitus with hyperglycemia; I11.0 Hypertensive heart disease with heart failure; E78.5 Hyperlipidemia, unspecified; H35.00 Unspecified background retinopathy; E66.9 Obesity, unspecified; Z68.39 Body mass index [BMI] 39.0-39.9, adult; Z85.3 Personal history of malignant neoplasm of breast
CPT/HCPCS: 36415; 36600; 71045-TC-FY; 71260-TC; 78452-TC; 80048; 80053; 80061; 82550; 82803; 82962; 83036; 83605; 83721; 83735; 83880; 84100; 84443; 84484; 85025; 85027; 85610; 85730; 87040; 87804; 93005; 93010; 93017; 93306-TC; 94640; 94660; 94761; 97116-GP; 97161-GP; 99285-25; A9502; J2785; Q9967